=== PATIENT | female | born 1940 ===

== ENCOUNTER 2016-05-11 12:31 | Inpatient (IN) | payer MEDICARE, OTHER ==
[2016-05-11 12:33] VITALS: PULSE 68
[2016-05-11 12:45] VITALS: BMI 22.3
[2016-05-11 13:42] LABS: BASO # 0.1 K/uL (0.0-0.2); BASO % 1.2 % (0.0-2.0); EOS # 0.1 K/uL (0.0-0.7); EOS % 2.1 % (0.0-4.0); HEMATOCRIT 33.8 % (34.0-47.0); LYMPH # 1.1 K/uL (1.0-4.3); LYMPH % 15.3 % (20.0-40.0); MEAN CORPUSCULAR HEMOGLOBIN 30.4 pg (27.0-31.0); MEAN PLATELET VOLUME 9.4 fL (7.2-11.7); MONO # 0.7 K/uL (0.0-0.8); MONO % 10.7 % (0.0-10.0); NRBC % 0.1 % (0.0-2.0); RED CELL DISTRIBUTION WIDTH 15.7 % (11.5-14.5); WHITE BLOOD COUNT 6.9 K/uL (4.8-10.8)
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
[2016-05-11 13:51] LABS: ALB/GLOB RATIO 0.9 (1.0-2.1); BILIRUBIN,TOTAL 0.7 mg/dL (0.2-1.3); TOTAL PROTEIN 7.8 g/dL (6.3-8.3)
[2016-05-11 13:52] LABS: CALCIUM 6.8 mg/dl (8.6-10.4)
[2016-05-11 13:59] LABS: INR 1.2
[2016-05-11 14:06] LABS: TROPONIN I 0.039 ng/mL (0.00-0.120)
[2016-05-11 14:07] LABS: POTASSIUM 6.3 mmol/L (3.6-5.2)
--- NOTE | 2016-05-11 14:51 | RAD ---
HISTORY: SOB COMPARISON: Chest x-ray performed 04/05/16 TECHNIQUE: Chest, one view. FINDINGS: LUNGS: Mild pulmonary venous congestion. No focal consolidation. Please note that chest x-ray has limited sensitivity for the detection of pulmonary masses. PLEURA: No significant pleural effusion identified. No definite pneumothorax . CARDIOVASCULAR: Severe cardiomegaly. Single lead left-sided AICD. OSSEOUS STRUCTURES: Osseous demineralization. Chronic deformity of the proximal right humerus. VISUALIZED UPPER ABDOMEN: Unremarkable. OTHER FINDINGS: None. IMPRESSION: Mild pulmonary venous congestion. Cardiomegaly. Single lead left-sided AICD.
--- NOTE | 2016-05-11 16:26 | CP.PCM.CON ---
Past Patient History - Infectious Disease Hx of Infectious Diseases: None - Past Medical History & Family History Past Medical History?: Yes - Past Social History Smoking Status: Never Smoked - CARDIAC Hx Atrial Fibrillation: No Hx Cardia Arrhythmia: Yes Hx Congestive Heart Failure: Yes Hx Hypercholesterolemia: Yes Hx Hypertension: Yes Hx Pacemaker: Yes (LEFT CHEST WALL) - PULMONARY Hx Asthma: Yes Hx Chronic Obstructive Pulmonary Disease (COPD): Yes - NEUROLOGICAL Hx Neurological Disorder: No - HEENT Hx HEENT Problems: Yes (SEE COMMENT) Other/Comment: hard of hearing - RENAL Hx Chronic Kidney Disease: Yes (SEE COMMENT) Hx Kidney Stones: Yes - ENDOCRINE/METABOLIC Hx Endocrine Disorders: Yes Hx Diabetes Mellitus Type 2: Yes - HEMATOLOGICAL/ONCOLOGICAL Hx Anemia: Yes - INTEGUMENTARY Hx Dermatological Problems: No - MUSCULOSKELETAL/RHEUMATOLOGICAL Hx Fractures: Yes - GASTROINTESTINAL Hx Diverticulitis: Yes - GENITOURINARY/GYNECOLOGICAL Hx Genitourinary Disorders: No - PSYCHIATRIC Hx Anxiety: No Hx Depression: No Hx Substance Use: No - SURGICAL HISTORY Hx Surgeries: Yes (SEE COMMENT) Hx Arteriovenous Shunt: Yes (LEFT ARM AV SHUNT) Hx Herniorrhaphy: Yes (umbilical) Other/Comment: pacemaker 2014 - ANESTHESIA Hx Anesthesia: Yes Hx Anesthesia Reactions: No (Denies) Hx Malignant Hyperthermia: No Meds Allergies/Adverse Reactions: Allergies Allergy/AdvReac Type Severity Reaction Status Date / Time oxycodone AdvReac Severe CONFUSION Verified 05/11/16 12:44 ferumoxides AdvReac REDNESS Verified 05/11/16 12:44 iron AdvReac REDNESS Verified 05/11/16 12:44 sodium ferric gluconate AdvReac REDNESS Verified 05/11/16 12:44 complex [From Ferrlecit] sucrose [From Ferrlecit] AdvReac REDNESS Verified 05/11/16 12:44 Physical Exam - Constitutional Appears: Well - Head Exam Head Exam: ATRAUMATIC, NORMAL INSPECTION, NORMOCEPHALIC - Eye Exam Eye Exam: EOMI, Normal appearance, PERRL Pupil Exam: NORMAL ACCOMODATION, PERRL - ENT Exam ENT Exam: Mucous Membranes Moist, Normal Exam - Neck Exam Neck exam: Positive for: Normal Inspection - Respiratory Exam Respiratory Exam: Decreased Breath Sounds - Cardiovascular Exam Cardiovascular Exam: REGULAR RHYTHM, +S1, +S2 - GI/Abdominal Exam GI & Abdominal Exam: Diminished Bowel Sounds, Soft - Rectal Exam Rectal Exam: Deferred Results - Vital Signs Recent Vital Signs: Last Vital Signs Temp 97.6 F 05/11/16 15:08 Pulse 72 05/11/16 15:08 Resp 20 05/11/16 15:08 BP 160/100 H 05/11/16 15:08 Pulse Ox 99 05/11/16 15:08 - Labs Result Diagrams: 05/11/16 13:37 05/11/16 13:37
--- NOTE | 2016-05-11 17:52 | CP.PCM.HP ---
Past Patient History - Infectious Disease Hx of Infectious Diseases: None - Past Medical History & Family History Past Medical History?: Yes - Past Social History Smoking Status: Never Smoked - CARDIAC Hx Atrial Fibrillation: No Hx Cardia Arrhythmia: Yes Hx Congestive Heart Failure: Yes Hx Hypercholesterolemia: Yes Hx Hypertension: Yes Hx Pacemaker: Yes (LEFT CHEST WALL) - PULMONARY Hx Asthma: Yes Hx Chronic Obstructive Pulmonary Disease (COPD): Yes - NEUROLOGICAL Hx Neurological Disorder: No - HEENT Hx HEENT Problems: Yes (SEE COMMENT) Other/Comment: hard of hearing - RENAL Hx Chronic Kidney Disease: Yes (SEE COMMENT) Hx Kidney Stones: Yes - ENDOCRINE/METABOLIC Hx Endocrine Disorders: Yes Hx Diabetes Mellitus Type 2: Yes - HEMATOLOGICAL/ONCOLOGICAL Hx Anemia: Yes - INTEGUMENTARY Hx Dermatological Problems: No - MUSCULOSKELETAL/RHEUMATOLOGICAL Hx Fractures: Yes - GASTROINTESTINAL Hx Diverticulitis: Yes - GENITOURINARY/GYNECOLOGICAL Hx Genitourinary Disorders: No - PSYCHIATRIC Hx Anxiety: No Hx Depression: No Hx Substance Use: No - SURGICAL HISTORY Hx Surgeries: Yes (SEE COMMENT) Hx Arteriovenous Shunt: Yes (LEFT ARM AV SHUNT) Hx Herniorrhaphy: Yes (umbilical) Other/Comment: pacemaker 2014 - ANESTHESIA Hx Anesthesia: Yes Hx Anesthesia Reactions: No (Denies) Hx Malignant Hyperthermia: No Meds Allergies/Adverse Reactions: Allergies Allergy/AdvReac Type Severity Reaction Status Date / Time oxycodone AdvReac Severe CONFUSION Verified 05/11/16 12:44 ferumoxides AdvReac REDNESS Verified 05/11/16 12:44 iron AdvReac REDNESS Verified 05/11/16 12:44 sodium ferric gluconate AdvReac REDNESS Verified 05/11/16 12:44 complex [From Ferrlecit] sucrose [From Ferrlecit] AdvReac REDNESS Verified 05/11/16 12:44 Results - Vital Signs Recent Vital Signs: Last Vital Signs Temp 98 F 05/11/16 15:55 Pulse 73 05/11/16 15:45 Resp 18 05/11/16 15:55 BP 102/52 L 05/11/16 17:15 Pulse Ox 98 05/11/16 17:10 - Labs Result Diagrams: 05/11/16 13:37 05/11/16 13:37
[2016-05-11 23:48] VITALS: RESP 20
[2016-05-12 04:31] VITALS: O2SAT 95
[2016-05-12] MEDS: (Novolog) Insulin Aspart, Recombinant 100 u/ml 10 ml vial SC SCH ×2 (07:30→16:30)
[2016-05-12] MEDS ORDERED: Pantoprazole 40 mg EC Tab PO SCH (10:00)
[2016-05-12] MEDS ORDERED: GlipiZIDE 5 mg SR Tab PO SCH (10:00)
--- NOTE | 2016-05-12 13:42 | US ---
Date of Procedure: 05/12/16 PROCEDURE: Ultrasound-guided paracentesis, CPT 39205 Medications: 1% Lidocaine HISTORY: Ascites, abdominal pain, cirrhosis TECHNIQUE: Following informed consent , the patient was placed supine on the stretcher and the site was marked. A limited abdominal ultrasound was performed that showed a large amount of intra-abdominal fluid. Procedural time out was called and the Pt's abdomen was marked and prepped and draped in the usual sterile fashion. Ultrasound-guided large volume paracentesis performed. A total of 4 liters of straw colored fluid was removed without complication. IMPRESSION: Ultrasound-guided large volume paracentesis.
--- NOTE | 2016-05-12 15:29 | CP.PCM.PN ---
Subjective - Date & Time of Evaluation Date of Evaluation: 05/12/16 Time of Evaluation: 15:24 - Subjective Subjective: 75 Y/O FEMALE SEEN AND EXAMINED TODAY DURING ROUNDS WITH DR Sanchez HERRERA, PT D/C HOME PER DR Sanchez HERRERA, AAOX3, DENIES ANY PAIN, SOB, CP, RESP EASY AND UNLABORED, NAD, PT IS ON HD ADMITTED FOR RECURRENT ASCITIES, US GUIDED LARGE VOLUME PARACENTESIS PERFORMED TODAY BY IR, A TOTAL OF 4 LITERS OF STRAW COLORED FLUID WAS REMOVED WITHOUT ANY COMPLICATIONS. PT EDUCATED TO CONTINUE HOME MEDICATIONS PER DR HERRERA, CONTINUE HD SCHEDULED ON //SUN, F/U WITH DR Sanchez HERRERA IN THE OFFICE WITHIN ONE WEEK, RETURN TO ED IF ANY WORSENING S/S, AGREE , VERBALIZE UNDERSTANDING. Objective - Vital Signs/Intake and Output Vital Signs (last 24 hours): Temp Pulse Resp BP Pulse Ox 98.6 F 88 20 100/60 95 05/12/16 07:00 05/12/16 07:35 05/12/16 07:00 05/12/16 10:20 05/12/16 07:00 - Medications Medications: Current Medications Furosemide (Lasix) 40 mg PO DAILY [facility] Last Admin: 05/12/16 10:20 Dose: Not Given Glipizide (Glucotrol Xl) 5 mg PO DAILY [facility] Last Admin: 05/12/16 10:18 Dose: 5 mg Heparin Sodium (Porcine) (Heparin) 5,000 units SC Q12 [facility] Last Admin: 05/12/16 11:19 Dose: Not Given Hydralazine HCl (Apresoline) 25 mg PO DAILY [facility] Last Admin: 05/12/16 10:17 Dose: Not Given Insulin Aspart (Novolog) 0 unit SC ACHS [facility] PRN Reason: Protocol Last Admin: 05/12/16 07:30 Dose: Not Given Pantoprazole Sodium (Protonix Ec Tab) 40 mg PO DAILY [facility] Last Admin: 05/12/16 10:19 Dose: 40 mg - Labs Labs: PT 13.9 SECONDS (9.7-12.2) H 05/11/16 13:37 INR 1.2 05/11/16 13:37 APTT 34 SECONDS (21-34) 05/11/16 13:37
[2016-05-12 16:04] VITALS: PULSE 71; TEMP 98.1
[2016-05-12 16:55] VITALS: BP 93/57
--- NOTE | 2016-05-12 17:27 | PCM.HF ---
Heart Failure Core Measure - Heart Failure Ejection Fraction: Less Than 40 % (LVEF 20%) JESSICA Inhibitor Prescribed: No Contraindication/Reason for not providing: ESRD Beta-Irma Prescribed: None Contraindication/Reason for not providing: COPD Angiotensin II Receptor Irma Prescribed: No Contraindication/Reason for not providing: ESRD AnticoagulationTherapy for Atrial Fibrillation/Atrialflutter: No Contraindication/Reason for not providing: NO AFIB Aldosterone Antagonist Prescribed: No Contraindication/Reason for not providing: HYPERKALEMIA Hydralazine Nitrate Prescribed: Yes Implantable Cardioverter Defibrillator Therapy: Yes Cardiac Resynchronization Therapy Prescribed: No Contraindication/Reason for not providing: PACEMAKER - Follow up Will be discharged to: Home Follow Up Date (must be within 7 days from discharge): 05/15/16 Follow Up Time: 09:00
--- NOTE | 2016-05-14 09:18 | CARD ---
APPROVED REPORT EKG Measurement Heart [id number] <Conclusion> Normal sinus rhythm T wave abnormality, consider lateral ischemia Prolonged QT LAD Abnormal ECG
== END 2016-05-12 18:09 | disposition home or self-care (01) | DRG 640 ==
LOC: C.ER 12:31 → C.9E 14:14 → C.6T 17:24
PROVIDERS: ADMIT Internal Medicine Nephrology; ATTEND Internal Medicine Nephrology
PROC: 5A1D00Z (ICD-10-PCS; principal; 2016-05-11)
PROC: 0W9G3ZZ Drainage of Peritoneal Cavity, Percutaneous Approach (ICD-10-PCS; 2016-05-12)
DX: E87.5 Hyperkalemia (principal); N18.6 End stage renal disease; I13.2 Hypertensive heart and chronic kidney disease with heart failure and with stage 5 chronic kidney disease, or end stage renal disease; R18.8 Other ascites; E11.22 Type 2 diabetes mellitus with diabetic chronic kidney disease; J44.9 Chronic obstructive pulmonary disease, unspecified; I50.9 Heart failure, unspecified; Z99.2 Dependence on renal dialysis; Z79.4 Long term (current) use of insulin; Z68.21 Body mass index [BMI] 21.0-21.9, adult; J45.909 Unspecified asthma, uncomplicated

== ENCOUNTER 2016-05-19 20:38 | Emergency (ER) | payer MEDICARE, OTHER ==
[2016-05-19 20:38] VITALS: PULSE 68; BMI 22.3
[2016-05-19 20:50] VITALS: PULSE 84; RESP 20; TEMP 97.6
--- NOTE | 2016-05-19 21:34 | C.PDOC ---
History Of Present Illness 75 year old pt presents to the ER with a brief syncopal episode prior to arrival. Pt notes SOB and left sided chest discomfort, but denies headache, fever, nausea, vomiting, diarrhea, head injury, or any other complaints. Pt has a history of End stage renal disease and has dialysis days every Sunday, , and Sunday. Pt reports fluid removal from abdomen last week. Time Seen by Provider: 05/19/16 21:33 Chief Complaint (Nursing): Chest Pain History Per: Patient History/Exam Limitations: no limitations Onset/Duration Of Symptoms: Hrs Current Symptoms Are (Timing): Still Present Severity: Mild Associated Symptoms: Syncope, Other (SOB, Left sided chest discomfort). denies : Nausea Past Medical History Reviewed: Historical Data, Nursing Documentation, Vital Signs Vital Signs: Last Vital Signs Temp 97.6 F 05/19/16 20:45 Pulse 84 05/19/16 20:45 Resp 20 05/19/16 20:45 BP 115/59 L 05/19/16 20:45 Pulse Ox 98 05/19/16 23:16 - Medical History PMH: Anemia, Asthma, CAD, Cardia Arrhythmia, CHF, COPD, Diabetes, Diverticulitis , Fractures, Hiatal Hernia, HTN, Hypercholesterolemia, Kidney Stones, End Stage Renal Disease, Chronic Kidney Disease (SEE COMMENT) Denies: Anxiety, Atrial Fibrillation, Depression Surgical History: Pacemaker (LEFT CHEST WALL) - [facility] Procedures BYPASS LEFT BRACHIAL ARTERY TO UPPER ARM VEIN, OPEN APPROACH (12/14/14) C.A.T. SCAN OF THORAX (08/16/13) DIALYSIS ARTERIOVENOSTOM (09/14/14) DRAINAGE OF PERITONEAL CAVITY WITH DRAIN DEV, PERC APPROACH (02/24/16) DRAINAGE OF PERITONEAL CAVITY, PERCUTANEOUS APPROACH (05/11/16) DX ULTRASOUND-ABDOMEN (10/25/14) HEMODIALYSIS (11/16/14) MEASUREMENT OF CARDIAC DEFIBRILLATOR, EXTERNAL APPROACH (12/14/14) PACKED CELL TRANSFUSION (08/16/13) PERCUTANEOUS ABDOMINAL DRAINAGE (11/16/14) PERFORMANCE OF URINARY FILTRATION, MULTIPLE (08/31/15) PERFORMANCE OF URINARY FILTRATION, SINGLE (05/11/16) REPOSITION LEFT BASILIC VEIN, OPEN APPROACH (05/30/15) SUPPLEMENT ABDOMINAL WALL WITH SYNTH SUB, OPEN APPROACH (03/17/15) THORACENTESIS (08/16/13) ULTRASONOGRAPHY OF ABDOMEN (12/04/15) VENOUS CATHETERIZATION FOR RENAL DIALYSIS (03/01/14) Family History: States: Unknown Family Hx, Diabetes - Social History Hx Tobacco Use: No Hx Alcohol Use: No Hx Substance Use: No - Immunization History Hx Tetanus Toxoid Vaccination: No Hx Influenza Vaccination: No (pt declines as per son) Hx Pneumococcal Vaccination: No Review Of Systems Except As Marked, All Systems Reviewed And Found Negative. Constitutional: Positive for: Other (Head injury). Negative for: Fever Cardiovascular: Positive for: Chest Pain (Left sided chest discomfort) Gastrointestinal: Negative for: Nausea, Vomiting, Diarrhea Neurological: Negative for: Headache Physical Exam - Physical Exam Appears: Non-toxic, No Acute Distress Skin: Warm, Dry Head: Atraumatic, Normacephalic Chest: Other (Pacemaker in the Left upper chest) Cardiovascular: Murmur (Holosystolic Murmur) Respiratory: Normal Breath Sounds, No Rales, No Rhonchi, No Wheezing Extremity: No Pedal Edema (Lower extremity) Neurological/Psych: Other (Lethargic, confused) ED Course And Treatment - Laboratory Results Result Diagrams: 05/19/16 21:42 05/19/16 21:42 Lab Interpretation: Normal (trop neg. Ammonia 33 nl) ECG: Interpreted By Me ECG Rhythm: Sinus Rhythm ECG Interpretation: Normal Rate From EC O2 Sat by Pulse Oximetry: 98 (Room air) Pulse Ox Interpretation: Normal - Radiology CXR: Interpreted by Me CXR Interpretation: Yes: No Acute Disease, Heart Size (cardiomegaly, + mild CHF) - CT Scan/US CT Head w/o PO Other Rad Studies (CT/US): Interpreted By Me, Read By Radiologist CT/US Interpretation: EXAM: CT Head Without Intravenous Contrast. CLINICAL HISTORY: 75 years old, female; Signs and symptoms; Syncope and collapse; Additional info: Brief syncope, ? change of ms. TECHNIQUE: Axial computed tomography images of the head/brain without intravenous contrast. This CT exam. was performed using one or more of the following dose reduction techniques: automated exposure. control, adjustment of the mA and/or kV according to patient size, and/or use of iterative. reconstruction technique. EXAM DATE/ TIME: 05/19/2016 10:20 PM. COMPARISON: There are no prior studies for comparison. FINDINGS: Brain: There is prominence of sulci gyri and ventricles. There is no midline shift. There is decreased. attenuation in periventricular white matter. There are basal ganglia calcifications. There are no focal. masses. There are no focal hemorrhages. Ricardo-white differentiation is visualized. Ventricles: See above. Bones: Cranial vault is intact. Soft tissues: unremarkable. Ears and mastoids: Middle ears and mastoids are unremarkable. Orbits: Orbital contents are unremarkable. 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 related to L upper chest pacer normal w/u though recommended for Obs to r/o ACS, pt prefers d/c and opt f/u. HD in AM Disposition Doctor Will See Patient In The: Office Counseled Patient/Family Regarding: Studies Performed, Diagnosis - Disposition Disposition: HOME/ ROUTINE Disposition Time: 23:19 Condition: GOOD - Clinical Impression Clinical Impression: Lethargy - Scribe Statement The provider has reviewed the documentation as recorded by the Scribe Humphrey dennis All medical record entries made by the Scribe were at my direction and personally dictated by me. I have reviewed the chart and agree that the record accurately reflects my personal performance of the history, physical exam, medical decision making, and the department course for this patient. I have also personally directed, reviewed, and agree with the discharge instructions and disposition.
[2016-05-19 21:49] LABS: BASO # 0.1 K/uL (0.0-0.2); BASO % 1.1 % (0.0-2.0); EOS # 0.2 K/uL (0.0-0.7); EOS % 3.3 % (0.0-4.0); HEMATOCRIT 34.8 % (34.0-47.0); LYMPH % 17.8 % (20.0-40.0); MEAN CELL VOLUME 93.4 fL (81.0-99.0); MEAN CORPUSCULAR HEMOGLOBIN 29.9 pg (27.0-31.0); MEAN PLATELET VOLUME 9.5 fL (7.2-11.7); MONO # 0.7 K/uL (0.0-0.8); MONO % 12.1 % (0.0-10.0); NRBC % 0.1 % (0.0-2.0); RED CELL DISTRIBUTION WIDTH 15.1 % (11.5-14.5); WHITE BLOOD COUNT 5.7 K/uL (4.8-10.8)
[2016-05-19 21:55] LABS: POTASSIUM 4.9 mmol/L (3.6-5.2)
[2016-05-19 21:57] LABS: ALB/GLOB RATIO 0.9 (1.0-2.1); BILIRUBIN,TOTAL 0.5 mg/dL (0.2-1.3); TOTAL PROTEIN 7.8 g/dL (6.3-8.3)
[2016-05-19 21:58] LABS: CALCIUM 7.3 mg/dl (8.6-10.4)
[2016-05-19 22:09] LABS: TROPONIN I 0.038 ng/mL (0.00-0.120)
--- NOTE | 2016-05-19 23:09 | CT ---
EXAM: CT Head Without Intravenous Contrast. CLINICAL HISTORY: 75 years old, female; Signs and symptoms; Syncope and collapse; Additional info: Brief syncope, ? change of ms TECHNIQUE: Axial computed tomography images of the head/brain without intravenous contrast. This CT exam was performed using one or more of the following dose reduction techniques: automated exposure control, adjustment of the mA and/or kV according to patient size, and/or use of iterative reconstruction technique. EXAM DATE/TIME: 05/19/2016 10:20 PM COMPARISON: There are no prior studies for comparison. FINDINGS: Brain: There is prominence of sulci gyri and ventricles. There is no midline shift. There is decreased attenuation in periventricular white matter. There are basal ganglia calcifications. There are no focal masses. There are no focal hemorrhages. Ricardo-white differentiation is visualized. Ventricles: See above. Bones: Cranial vault is intact. Soft tissues: unremarkable Ears and mastoids: Middle ears and mastoids are unremarkable. Orbits: Orbital contents are unremarkable. IMPRESSION: Atrophy and small vessel disease no bleed
[2016-05-19 23:32] VITALS: BP 121/64; O2SAT 99
--- NOTE | 2016-05-20 14:25 | RAD ---
PROCEDURE: CHEST RADIOGRAPH, 1 VIEW HISTORY: SOB COMPARISON: 05/11/2016 FINDINGS: LUNGS: New interstitial prominence compared to recent prior examinations suggestive of interstitial pulmonary edema. No pulmonary infiltrate. PLEURA: No pneumothorax or pleural fluid seen. CARDIOVASCULAR: Cardiomegaly. AICD. Congestive change. OSSEOUS STRUCTURES: Deformity secondary to old right humeral head fracture. Left shoulder calcific tendinitis. VISUALIZED UPPER ABDOMEN: Normal. OTHER FINDINGS: None. IMPRESSION: Findings suggestive of interstitial pulmonary edema or fluid overload. No acute infiltrate.
== END 2016-05-19 23:31 | disposition home or self-care (01) ==
LOC: C.ER 20:38
DX: R53.83 Other fatigue (principal)

== ENCOUNTER 2016-06-01 13:11 | Observation (INO) | payer MEDICARE, OTHER ==
[2016-06-01 13:13] VITALS: PULSE 68
[2016-06-01 13:27] VITALS: BMI 23.2
--- NOTE | 2016-06-01 15:19 | C.PDOC ---
History Of Present Illness 75 y/o female with esrd. due for hd today. c/o increased swelling to her abdomen , with no pain. pt sts she gets 4 quarts of fluid drained every few weeks to month. Time Seen by Provider: 06/01/16 13:49 Chief Complaint (Nursing): GI Problem History Per: Patient History/Exam Limitations: no limitations Current Symptoms Are (Timing): Still Present Location Of Pain/Discomfort: Other (Swelling) Associated Symptoms: denies: Fever, Chills, Nausea, Vomiting Past Medical History Reviewed: Historical Data, Nursing Documentation, Vital Signs Vital Signs: Last Vital Signs Temp 97.2 F L 06/01/16 16:52 Pulse 75 06/01/16 16:52 Resp 20 06/01/16 16:52 BP 115/69 06/01/16 16:52 Pulse Ox 98 06/01/16 17:00 - Medical History PMH: Anemia, Asthma, CAD, Cardia Arrhythmia, CHF, COPD, Diabetes, Diverticulitis , Fractures, Hiatal Hernia, HTN, Hypercholesterolemia, Kidney Stones, End Stage Renal Disease, Chronic Kidney Disease (SEE COMMENT) Surgical History: Pacemaker (LEFT CHEST WALL) - [facility] Procedures BYPASS LEFT BRACHIAL ARTERY TO UPPER ARM VEIN, OPEN APPROACH (12/14/14) C.A.T. SCAN OF THORAX (08/16/13) DIALYSIS ARTERIOVENOSTOM (09/14/14) DRAINAGE OF PERITONEAL CAVITY WITH DRAIN DEV, PERC APPROACH (02/24/16) DRAINAGE OF PERITONEAL CAVITY, PERCUTANEOUS APPROACH (05/11/16) DX ULTRASOUND-ABDOMEN (10/25/14) HEMODIALYSIS (11/16/14) MEASUREMENT OF CARDIAC DEFIBRILLATOR, EXTERNAL APPROACH (12/14/14) PACKED CELL TRANSFUSION (08/16/13) PERCUTANEOUS ABDOMINAL DRAINAGE (11/16/14) PERFORMANCE OF URINARY FILTRATION, MULTIPLE (08/31/15) PERFORMANCE OF URINARY FILTRATION, SINGLE (05/11/16) REPOSITION LEFT BASILIC VEIN, OPEN APPROACH (05/30/15) SUPPLEMENT ABDOMINAL WALL WITH SYNTH SUB, OPEN APPROACH (03/17/15) THORACENTESIS (08/16/13) ULTRASONOGRAPHY OF ABDOMEN (12/04/15) VENOUS CATHETERIZATION FOR RENAL DIALYSIS (03/01/14) Family History: States: Unknown Family Hx, Diabetes - Social History Hx Tobacco Use: No Hx Alcohol Use: No Hx Substance Use: No - Immunization History Hx Tetanus Toxoid Vaccination: No Hx Influenza Vaccination: No (pt declines as per son) Hx Pneumococcal Vaccination: No Review Of Systems Constitutional: Negative for: Fever, Chills Respiratory: Negative for: Shortness of Breath Gastrointestinal: Positive for: Other (Abdominal swelling). Negative for: Nausea, Vomiting, Abdominal Pain, Diarrhea Physical Exam - Physical Exam Appears: Non-toxic, Other (Appears older than looks) Skin: Normal Color, Warm, Dry Head: Atraumatic, Normacephalic Oral Mucosa: Moist Cardiovascular: Murmur (blowing systolic, best heard at left sternal border between ribs 2-3) Respiratory: Other (Bilateral basilar crackles) Gastrointestinal/Abdominal: Soft, No Tenderness, Distention (Grossly) Neurological/Psych: Oriented x3, Normal Speech, Normal Cognition ED Course And Treatment - Laboratory Results Result Diagrams: 06/01/16 16:20 06/01/16 16:20 O2 Sat by Pulse Oximetry: 98 (room air) Pulse Ox Interpretation: Normal Progress Note: Blood work ordered. Medical Decision Making Medical Decision Making: discussed with Dr Barry, will send patient to HD, then admit to his service. Disposition Discussed With : Quin Barry - Disposition Disposition Time: 16:59 Condition: STABLE - Clinical Impression Clinical Impression: ESRD needing dialysis, Ascites - Scribe Statement The provider has reviewed the documentation as recorded by the Scribmarcial Lyons All medical record entries made by the Scribe were at my direction and personally dictated by me. I have reviewed the chart and agree that the record accurately reflects my personal performance of the history, physical exam, medical decision making, and the department course for this patient. I have also personally directed, reviewed, and agree with the discharge instructions and disposition. Decision To Admit - Pt Status Changed To: Hospital Disposition Of: Observation - . Bed Request Type: Regular Patient Diagnosis: ESRD needing dialysis, Ascites
[2016-06-01 16:23] LABS: BASO # 0.1 K/uL (0.0-0.2); EOS # 0.2 K/uL (0.0-0.7); EOS % 2.7 % (0.0-4.0); HEMATOCRIT 34.2 % (34.0-47.0); LYMPH % 17.9 % (20.0-40.0); MEAN CELL VOLUME 93.8 fL (81.0-99.0); MEAN CORPUSCULAR HEMOGLOBIN 30.3 pg (27.0-31.0); MEAN CORPUSCULAR HGB CONC 32.3 g/dL (33.0-37.0); MEAN PLATELET VOLUME 9.4 fL (7.2-11.7); MONO # 0.8 K/uL (0.0-0.8); MONO % 13.5 % (0.0-10.0); NRBC % 0.1 % (0.0-2.0); WHITE BLOOD COUNT 5.8 K/uL (4.8-10.8)
[2016-06-01 16:32] LABS: POTASSIUM 5.4 mmol/L (3.6-5.2)
[2016-06-01 16:34] LABS: BILIRUBIN,TOTAL 0.7 mg/dL (0.2-1.3); TOTAL PROTEIN 7.7 g/dL (6.3-8.3)
[2016-06-01 16:35] LABS: CALCIUM 7.1 mg/dl (8.6-10.4)
--- NOTE | 2016-06-01 18:05 | CP.PCM.HP ---
History of Present Illness - History of Present Illness History of Present Illness: 75 years old female past medical history of coronary artery disease, CHF, diabetes, hypertension, hyperlipidemia, stones, ESRD on hemodialysis presented with complaint of distended abdomen associated with pain. Patient patient needs paracentesis every few weeks. Emergency department blood workup was done and underwent hemodialysis. Admitted for further management. Present on Admission - Present on Admission Any Indicators Present on Admission: No Past Patient History - Infectious Disease Hx of Infectious Diseases: None - Past Medical History & Family History Past Medical History?: Yes - Past Social History Smoking Status: Never Smoked - CARDIAC Hx Cardia Arrhythmia: Yes Hx Congestive Heart Failure: Yes Hx Hypercholesterolemia: Yes Hx Hypertension: Yes Hx Pacemaker: Yes (LEFT CHEST WALL) - PULMONARY Hx Asthma: Yes Hx Chronic Obstructive Pulmonary Disease (COPD): Yes - NEUROLOGICAL Hx Neurological Disorder: No - HEENT Hx HEENT Problems: Yes (SEE COMMENT) - RENAL Hx Chronic Kidney Disease: Yes (SEE COMMENT) Hx Kidney Stones: Yes - ENDOCRINE/METABOLIC Hx Endocrine Disorders: Yes Hx Diabetes Mellitus Type 2: Yes - HEMATOLOGICAL/ONCOLOGICAL Hx Anemia: Yes - INTEGUMENTARY Hx Dermatological Problems: No Other/Comment: herpes zoster - MUSCULOSKELETAL/RHEUMATOLOGICAL Hx Fractures: Yes - GASTROINTESTINAL Hx Diverticulitis: Yes - GENITOURINARY/GYNECOLOGICAL Hx Genitourinary Disorders: No - PSYCHIATRIC Hx Substance Use: No - SURGICAL HISTORY Hx Surgeries: Yes (SEE COMMENT) Hx Arteriovenous Shunt: Yes (LEFT ARM AV SHUNT) Other/Comment: pacemaker 2014 - ANESTHESIA Hx Anesthesia: Yes Hx Anesthesia Reactions: No (Denies) Hx Malignant Hyperthermia: No Meds Allergies/Adverse Reactions: Allergies Allergy/AdvReac Type Severity Reaction Status Date / Time oxycodone AdvReac Severe CONFUSION Verified 08/16/16 11:41 ferumoxides AdvReac REDNESS Verified 08/16/16 11:41 iron AdvReac REDNESS Verified 08/16/16 11:41 sodium ferric gluconate AdvReac REDNESS Verified 08/16/16 11:41 complex [From Ferrlecit] sucrose [From Ferrlecit] AdvReac REDNESS Verified 08/16/16 11:41 Results - Vital Signs Recent Vital Signs: Last Vital Signs Temp 97.7 F 06/01/16 17:15 Pulse 72 06/01/16 17:40 Resp 18 06/01/16 17:40 BP 110/63 06/01/16 17:40 Pulse Ox 99 06/01/16 17:15 - Labs Result Diagrams: 06/01/16 16:20 06/01/16 16:20 Assessment & Plan (1) Ascites Status: Acute Priority: Medium (2) Abdominal pain Status: Acute (3) Abdominal wall pain Status: Acute (4) Acute on chronic systolic congestive heart failure Status: Acute Priority: Medium (5) Anasarca Status: Acute (6) Ascites, malignant Status: Acute (7) Bronchitis, acute Status: Acute (8) CAD (coronary artery disease) Status: Acute (9) CHF (congestive heart failure) Status: Acute Priority: Low (10) COPD (chronic obstructive pulmonary disease) Status: Acute (11) Chest pain Status: Acute (12) Cirrhosis Status: Acute (13) Congestive heart failure with cardiomyopathy Status: Acute Priority: Medium (14) Contusion of foot, left Status: Acute (15) Deep vein thrombosis (DVT) Status: Acute (16) Dialysis patient Status: Acute (17) Diarrhea Status: Acute (18) Diarrhea Status: Acute (19) Dyspnea Status: Acute (20) Dyspnea Status: Acute (21) ESRD (end stage renal disease) Status: Acute (22) ESRD needing dialysis Status: Acute (23) Fluid overload Status: Acute (24) Foot pain Status: Acute (25) HLD (hyperlipidemia) Status: Acute (26) Hepatorenal syndrome Status: Acute (27) Herpes zoster Status: Acute (28) Humerus fracture Status: Acute (29) Hyperkalemia Status: Acute (30) Hypoglycemia Status: Acute Priority: Low (31) Incarcerated umbilical hernia Status: Acute (32) Increased ammonia level Status: Acute (33) Ischemic cardiomyopathy Status: Acute (34) Knee contusion Status: Acute (35) Lethargy Status: Acute (36) Liver disease Status: Acute (37) Nausea Status: Acute (38) Other ascites Status: Acute (39) Patient left without being seen Status: Acute (40) Poorly controlled ascites Status: Acute (41) Pre-operative cardiovascular examination, LVEF < 35% Status: Acute (42) Prophylactic measure Status: Acute (43) Pulmonary HTN Status: Acute (44) Renal failure Status: Acute (45) Renal insufficiency Status: Acute (46) Shortness of breath Status: Acute (47) Small bowel obstruction Status: Acute (48) Upper respiratory infection Status: Acute (49) Ventral hernia Status: Acute (50) Vomiting Status: Acute (51) Wrist contusion Status: Acute (52) Chronic congestive heart failure Status: Chronic (53) Chronic renal disease Status: Chronic Priority: Medium (54) Cirrhosis of liver with ascites Status: Chronic Priority: High (55) Diabetes mellitus Status: Chronic (56) ESRD (end stage renal disease) on dialysis Status: Chronic (57) End stage renal disease Status: Chronic Priority: Medium (58) Hypertension Status: Chronic (59) Liver failure Status: Chronic Priority: Medium (60) Pacemaker Status: Chronic (61) Pelvic fracture Status: Chronic (62) Type II diabetes mellitus Status: Chronic Priority: Medium (63) Uncontrolled diabetes mellitus Status: Chronic - Assessment and Plan (Free Text) Plan: Labs reviewed Hemodialysis Renal diet Accu-Chek Insulin Lasix
[2016-06-01] MEDS: (Novolog) Insulin Aspart, Recombinant 100 u/ml 10 ml vial SC SCH (21:53)
[2016-06-01 22:21] VITALS: RESP 20
[2016-06-02] MEDS: (Novolog) Insulin Aspart, Recombinant 100 u/ml 10 ml vial SC SCH ×2 (07:42→11:45)
--- NOTE | 2016-06-02 09:06 | CP.PCM.PN ---
Objective - Vital Signs/Intake and Output Vital Signs (last 24 hours): Temp Pulse Resp BP Pulse Ox 98.1 F 73 20 108/62 97 06/02/16 00:00 06/02/16 01:59 06/02/16 00:00 06/02/16 00:00 06/02/16 00:00 Intake and Output: 06/02/16 06/02/16 06:59 18:59 Intake Total 200 0 Balance 200 0 - Medications Medications: Current Medications Amlodipine Besylate (Norvasc) 10 mg PO DAILY [facility] Furosemide (Lasix) 40 mg PO DAILY [facility] Insulin Aspart (Novolog) 0 unit SC ACHS [facility] PRN Reason: Protocol Last Admin: 06/02/16 07:42 Dose: Not Given Pantoprazole Sodium (Protonix Ec Tab) 40 mg PO DAILY [facility]
[2016-06-02] MEDS ORDERED: Pantoprazole 40 mg EC Tab PO SCH (10:00)
--- NOTE | 2016-06-02 10:31 | CP.PCM.PN ---
Subjective - Date & Time of Evaluation Date of Evaluation: 06/02/16 Time of Evaluation: 10:00 - Subjective Subjective: clinically same for abdominal paracentesis Objective - Vital Signs/Intake and Output Vital Signs (last 24 hours): Temp Pulse Resp BP Pulse Ox 98.0 F 77 20 101/56 L 94 L 06/02/16 08:00 06/02/16 08:00 06/02/16 08:00 06/02/16 08:00 06/02/16 08:00 Intake and Output: 06/02/16 06/02/16 06:59 18:59 Intake Total 200 0 Balance 200 0 - Medications Medications: Current Medications Amlodipine Besylate (Norvasc) 10 mg PO DAILY [facility] Furosemide (Lasix) 40 mg PO DAILY [facility] Insulin Aspart (Novolog) 0 unit SC ACHS [facility] PRN Reason: Protocol Last Admin: 06/02/16 07:42 Dose: Not Given Pantoprazole Sodium (Protonix Ec Tab) 40 mg PO DAILY [facility] - Constitutional Appears: Well - Head Exam Head Exam: ATRAUMATIC, NORMAL INSPECTION, NORMOCEPHALIC - Eye Exam Eye Exam: EOMI, Normal appearance, PERRL Pupil Exam: NORMAL ACCOMODATION, PERRL - ENT Exam ENT Exam: Mucous Membranes Moist, Normal Exam - Neck Exam Neck Exam: Full ROM, Normal Inspection. absent: Lymphadenopathy - Respiratory Exam Respiratory Exam: Decreased Breath Sounds - Cardiovascular Exam Cardiovascular Exam: REGULAR RHYTHM, +S1, +S2 - GI/Abdominal Exam GI & Abdominal Exam: Soft, Diminished Bowel Sounds - Rectal Exam Rectal Exam: Deferred - Neurological Exam Neurological Exam: Alert Assessment and Plan (1) Abdominal pain Status: Acute (2) Abdominal wall pain Status: Acute (3) Acute on chronic systolic congestive heart failure Status: Acute (4) Anasarca Status: Acute (5) Ascites Status: Acute (6) Ascites, malignant Status: Acute (7) Bronchitis, acute Status: Acute (8) CAD (coronary artery disease) Status: Acute (9) CHF (congestive heart failure) Status: Acute (10) COPD (chronic obstructive pulmonary disease) Status: Acute (11) Chest pain Status: Acute (12) Cirrhosis Status: Acute (13) Congestive heart failure with cardiomyopathy Status: Acute (14) Contusion of foot, left Status: Acute (15) Deep vein thrombosis (DVT) Status: Acute (16) Dialysis patient Status: Acute (17) Diarrhea Status: Acute (18) Diarrhea Status: Acute (19) Dyspnea Status: Acute (20) Dyspnea Status: Acute (21) ESRD needing dialysis Status: Acute (22) Fluid overload Status: Acute (23) Foot pain Status: Acute (24) HLD (hyperlipidemia) Status: Acute (25) Hepatorenal syndrome Status: Acute (26) Herpes zoster Status: Acute (27) Humerus fracture Status: Acute (28) Hyperkalemia Status: Acute (29) Hypoglycemia Status: Acute (30) Incarcerated umbilical hernia Status: Acute (31) Increased ammonia level Status: Acute (32) Ischemic cardiomyopathy Status: Acute (33) Knee contusion Status: Acute (34) Lethargy Status: Acute (35) Liver disease Status: Acute (36) Nausea Status: Acute (37) Other ascites Status: Acute (38) Patient left without being seen Status: Acute (39) Poorly controlled ascites Status: Acute (40) Pre-operative cardiovascular examination, LVEF < 35% Status: Acute (41) Prophylactic measure Status: Acute (42) Pulmonary HTN Status: Acute (43) Renal failure Status: Acute (44) Renal insufficiency Status: Acute (45) Shortness of breath Status: Acute (46) Small bowel obstruction Status: Acute (47) Upper respiratory infection Status: Acute (48) Ventral hernia Status: Acute (49) Vomiting Status: Acute (50) Wrist contusion Status: Acute (51) Chronic congestive heart failure Status: Chronic (52) Chronic renal disease Status: Chronic (53) Cirrhosis of liver with ascites Status: Chronic (54) Diabetes mellitus Status: Chronic (55) ESRD (end stage renal disease) on dialysis Status: Chronic (56) End stage renal disease Status: Chronic (57) Hypertension Status: Chronic (58) Liver failure Status: Chronic (59) Pacemaker Status: Chronic (60) Pelvic fracture Status: Chronic (61) Type II diabetes mellitus Status: Chronic (62) Uncontrolled diabetes mellitus Status: Chronic - Assessment and Plan (Free Text) Plan: lasix protonix spironolactone palliative care consult paracentesis as ordered mx as ordered f/u labs monitor for fever
[2016-06-02] MEDS ORDERED: Pantoprazole 20 mg EC Tab PO SCH (11:56)
--- NOTE | 2016-06-02 12:45 | CP.PCM.CON ---
History of Present Illness - History of Present Illness History of Present Illness: Palliative consult for goals of care discussion Requested ellen Wesley DO Patient is a 75 yo Hispanik female, admitted on the day when she was due for HD , with swollen, distended abdomen. Patient reported that each moth she gets pericentesis for abdominal ascites. PMH: ESRD with HD, anemia, CAD, CHF, PPM Soc. hx: , lives at home Fam. hx: Unknown Review of Systems - Constitutional Constitutional: Fatigue - EENT Eyes: absent: As Per HPI, Blind Spots, Blurred Vision, Change in Vision, Decreased Night Vision, Diplopia, Discharge, Dry Eye, Exophthalmos, Floaters, Irritation, Itchy Eyes, Loss of Peripheral Vision, Pain, Photophobia, Requires Corrective Lenses, Sees Flashes, Spots in Vision, Tunnel Vision, Other Visual Disturbances, Loss of Vision, Other Ears: absent: As Per HPI, Decreased Hearing, Ear Discharge, Ear Pain, Tinnitus, Abnormal Hearing, Disequilibrium, Dizziness, Other Nose/Mouth/Throat: absent: As Per HPI, Epistaxis, Nasal Congestion, Nasal Discharge, Nasal Obstruction, Nasal Trauma, Nose Pain, Post Nasal Drip, Sinus Pain, Sinus Pressure, Bleeding Gums, Change in Voice, Dental Pain, Dry Mouth, Dysphagia, Halitosis, Hoarsness, Lip Swelling, Mouth Lesions, Mouth Pain, Odynophagia, Sore Throat, Throat Swelling, Tongue Swelling, Facial Pain, Neck Pain, Neck Mass, Other - Breasts Breasts: absent: As Per HPI, Change in Shape, Mass, Pain, Nipple Discharge, Nipple Inversion, Skin Changes, Swelling, Other - Cardiovascular Cardiovascular: absent: As Per HPI, Acrocyanosis, Chest Pain, Chest Pain at Rest , Chest Pain with Activity, Claudication, Diaphoresis, Dyspnea, Dyspnea on Exertion, Edema, Irregular Heart Rhythm, Pain Radiating to Arm/Neck/Jaw, Leg Edema, Leg Ulcers, Lightheadedness, Orthopnea, Palpitations, Paroxysmal Nocturnal Dyspnea, Pedal Edema, Radiating Pain, Rapid Heart Rate, Slow Heart Rate, Syncope, Other - Respiratory Respiratory: Dyspnea on Exertion - Gastrointestinal Additional comments: Ascites - Genitourinary Additional comments: ESRD on HD - Reproductive: Female Reproductive:Female: Post Menopausal - Menstruation Menstruation: Post Menopausal - Musculoskeletal Musculoskeletal: Muscle Weakness - Integumentary Integumentary: Dry Skin - Neurological Neurological: Weakness - Endocrine Endocrine: absent: As Per HPI, Change in Body Appearance, Change in Libido, Cold Intolorance, Deepening of Voice, Excessive Sweating, Fatigue, Flushing, Heat Intolorance, Increase in Ring/Shoe/Hat Size, Palpitations, Polydipsia, Polyphagia, Polyuria, Other - Hematologic/Lymphatic Hematologic: absent: As Per HPI, Easy Bleeding, Easy Bruising, Lymphadenopathy, Other Past Patient History - Infectious Disease Hx of Infectious Diseases: None - Past Medical History & Family History Past Medical History?: Yes - Past Social History Smoking Status: Never Smoked - CARDIAC Hx Cardiac Disorders: Yes Hx Cardia Arrhythmia: Yes Hx Congestive Heart Failure: Yes Hx Hypercholesterolemia: Yes Hx Hypertension: Yes Hx Pacemaker: Yes (LEFT CHEST WALL) - PULMONARY Hx Respiratory Disorders: Yes Hx Asthma: Yes Hx Chronic Obstructive Pulmonary Disease (COPD): Yes - NEUROLOGICAL Hx Neurological Disorder: No - HEENT Hx HEENT Problems: Yes (SEE COMMENT) - RENAL Hx Chronic Kidney Disease: Yes Hx Dialysis: Yes Date of Last Dialysis Treatment: 06/01/16 - ENDOCRINE/METABOLIC Hx Endocrine Disorders: Yes Hx Diabetes Mellitus Type 2: Yes - HEMATOLOGICAL/ONCOLOGICAL Hx Anemia: Yes - INTEGUMENTARY Hx Dermatological Problems: No Other/Comment: herpes zoster - MUSCULOSKELETAL/RHEUMATOLOGICAL Hx Musculoskeletal Disorders: No Hx Falls: No - GASTROINTESTINAL Hx Gastrointestinal Disorders: Yes Hx Diverticulitis: Yes - GENITOURINARY/GYNECOLOGICAL Hx Genitourinary Disorders: No - PSYCHIATRIC Hx Psychophysiologic Disorder: No Hx Substance Use: No - SURGICAL HISTORY Hx Surgeries: Yes (SEE COMMENT) Hx Arteriovenous Shunt: Yes (LEFT ARM AV SHUNT) Other/Comment: pacemaker 2013 - ANESTHESIA Hx Anesthesia: Yes Hx Anesthesia Reactions: No (Denies) Hx Malignant Hyperthermia: No Has any member of the family had a problem w/ anesthesia?: No Meds Allergies/Adverse Reactions: Allergies Allergy/AdvReac Type Severity Reaction Status Date / Time oxycodone AdvReac Severe CONFUSION Verified 06/01/16 13:27 ferumoxides AdvReac REDNESS Verified 06/01/16 13:27 iron AdvReac REDNESS Verified 06/01/16 13:27 sodium ferric gluconate AdvReac REDNESS Verified 06/01/16 13:27 complex [From Ferrlecit] sucrose [From Ferrlecit] AdvReac REDNESS Verified 06/01/16 13:27 - Medications Medications: Current Medications Amlodipine Besylate (Norvasc) 10 mg PO DAILY [facility] Last Admin: 06/02/16 10:44 Dose: Not Given Furosemide (Lasix) 40 mg PO DAILY [facility] Last Admin: 06/02/16 10:44 Dose: Not Given Insulin Aspart (Novolog) 0 unit SC ACHS [facility] PRN Reason: Protocol Last Admin: 06/02/16 11:45 Dose: Not Given Pantoprazole Sodium (Protonix Ec Tab) 20 mg PO DAILY [facility] Spironolactone (Aldactone) 12.5 mg PO BID [facility] Physical Exam - Constitutional Appears: Chronically Ill - Head Exam Head Exam: ATRAUMATIC - Eye Exam Eye Exam: Normal appearance Pupil Exam: NORMAL ACCOMODATION - ENT Exam ENT Exam: Normal Exam - Neck Exam Neck exam: Positive for: Normal Inspection - Respiratory Exam Respiratory Exam: Decreased Breath Sounds - Cardiovascular Exam Cardiovascular Exam: Tachycardia - GI/Abdominal Exam GI & Abdominal Exam: Diminished Bowel Sounds, Distended - Rectal Exam Rectal Exam: Deferred - Exam Additional comments: Urinates ocationaly, on HD - Extremities Exam Extremities exam: Positive for: normal inspection - Back Exam Back exam: NORMAL INSPECTION - Neurological Exam Neurological exam: Alert, Oriented x3 - Psychiatric Exam Psychiatric exam: Normal Affect, Normal Mood - Skin Skin Exam: Normal Color Results - Vital Signs Recent Vital Signs: Last Vital Signs Temp 98.0 F 06/02/16 08:00 Pulse 77 06/02/16 08:00 Resp 20 06/02/16 08:00 BP 96/58 L 06/02/16 10:44 Pulse Ox 94 L 06/02/16 08:00 - Labs Result Diagrams: 06/01/16 16:20 06/01/16 16:20 Labs: Laboratory Results - last 24 hr 06/01/16 06/02/16 21:19 06:59 POC Glucose (mg/dL) 123 H 115 H Assessment & Plan - Assessment and Plan (Free Text) Assessment: Code status Full Code. PPS 50% I reviewed medical records, all diagnostic studies, examined and interviewed patient in the bed and discussed her status with Doctor Fernando Barry. Patient is alert, oriented X 3 Macedonian and Sami speaking. Patient looks chronically ill. Skin is dry, intact. Breath sounds diminished, patient gets SOB on excertion. Abdomen is largely distended, diminished bowel sounds. Patient reports discomfort and inability to sleep, but denies pain. patient reports fair appetite and regular bowel regimen. BP 101/56, WBC 5.8, Hb 11.1, BUN 42, Health Consultant 8.6 Impression * Abdominal distention due to chronic ascites * Abdominal discomfort due to ascites * Altered sleep pattern due to discomfort * Anuria secondary to ESRD Suggestion * Draining of ascicites * resume HD * discharge home when stable Thank you for consulting Palliative care
--- NOTE | 2016-06-02 13:29 | CP.PCM.PN ---
<Ishan Calderon H - Last Filed: 06/02/16 17:53> Subjective - Date & Time of Evaluation Date of Evaluation: 06/02/16 Time of Evaluation: 10:00 - Subjective Subjective: Dr. Barry service: Patient seen and examined in room. Patient complains of abdominal distention, some diffaculty breathing. She reports having frequent pericenteisis in the past. She denies fever, chills, nausea, vomiting, or diarrhea. Objective - Vital Signs/Intake and Output Vital Signs (last 24 hours): Temp Pulse Resp BP Pulse Ox 98.0 F 77 20 96/58 L 94 L 06/02/16 08:00 06/02/16 08:00 06/02/16 08:00 06/02/16 10:44 06/02/16 08:00 Intake and Output: 06/02/16 06/02/16 06:59 18:59 Intake Total 200 0 Balance 200 0 - Medications Medications: Current Medications Amlodipine Besylate (Norvasc) 10 mg PO DAILY [facility] Last Admin: 06/02/16 10:44 Dose: Not Given Furosemide (Lasix) 40 mg PO DAILY [facility] Last Admin: 06/02/16 10:44 Dose: Not Given Insulin Aspart (Novolog) 0 unit SC ACHS [facility] PRN Reason: Protocol Last Admin: 06/02/16 11:45 Dose: Not Given Pantoprazole Sodium (Protonix Ec Tab) 20 mg PO DAILY [facility] Spironolactone (Aldactone) 12.5 mg PO BID CARITO - Constitutional Appears: Chronically Ill - Head Exam Head Exam: NORMAL INSPECTION - Eye Exam Eye Exam: absent: Scleral icterus Pupil Exam: NORMAL ACCOMODATION - Respiratory Exam Respiratory Exam: Decreased Breath Sounds - Cardiovascular Exam Cardiovascular Exam: REGULAR RHYTHM, RRR. absent: Gallop, Rubs - GI/Abdominal Exam GI & Abdominal Exam: Soft, Normal Bowel Sounds. absent: Tenderness - Extremities Exam Extremities Exam: Normal Inspection. absent: Pedal Edema - Psychiatric Exam Psychiatric exam: Normal Affect - Skin Skin Exam: Normal Color Assessment and Plan - Assessment and Plan (Free Text) Assessment: Patient is to be discharged <Quin Barry S - Last Filed: 06/02/16 18:45> Objective - Vital Signs/Intake and Output Vital Signs (last 24 hours): Temp Pulse Resp BP Pulse Ox 97.7 F 75 20 108/59 L 96 06/02/16 15:15 06/02/16 15:15 06/02/16 15:15 06/02/16 15:15 06/02/16 15:15 Intake and Output: 06/02/16 06/02/16 06:59 18:59 Intake Total 200 200 Balance 200 200 - Medications Medications: Current Medications Amlodipine Besylate (Norvasc) 10 mg PO DAILY [facility] Last Admin: 06/02/16 10:44 Dose: Not Given Furosemide (Lasix) 40 mg PO DAILY [facility] Last Admin: 06/02/16 10:44 Dose: Not Given Insulin Aspart (Novolog) 0 unit SC ACHS [facility] PRN Reason: Protocol Last Admin: 06/02/16 11:45 Dose: Not Given Pantoprazole Sodium (Protonix Ec Tab) 20 mg PO DAILY [facility] Spironolactone (Aldactone) 12.5 mg PO BID [facility] Attending/Attestation - Attestation I have personally seen and examined this patient.: Yes I have fully participated in the care of the patient.: Yes I have reviewed all pertinent clinical information, including history, physical exam and plan: Yes Notes (Text): 06/02/16 18:45 case seen and discuse abdulaziz atkinson
--- NOTE | 2016-06-02 14:50 | PCM.SURG1 ---
Surgeon's Initial Post Op Note - Surgeon's Notes Surgeon: Steven Monroy MD Cit[employer] Fruit Colorer: NONE Type of Anesthesia: Local Pre-Operative Diagnosis: Ascites, abdominal pain Operative Findings: US showed a large ascites with internal echoes. Post-Operative Diagnosis: Ascites, abdominal pain Operation Performed: US guided paracentesis. Specimen/Specimens Removed: 4600 cc of slight serosanguinious fluid. Estimated Blood Loss: EBL {In ML}: 0 Blood Products Given: N/A Drains Used: No Drains Post-Op Condition: Fair Date of Surgery/Procedure: 06/02/16 Time of Surgery/Procedure: 14:45
--- NOTE | 2016-06-02 14:52 | US ---
Date of Procedure: 06/02/2016 PROCEDURE: Ultrasound-guided paracentesis, CPT 94605 Medications: 1% Lidocaine HISTORY: Ascites, abdominal pain, cirrhosis TECHNIQUE: Following informed consent , the patient was placed supine on the stretcher and the site was marked. A limited abdominal ultrasound was performed that showed a large amount of intra-abdominal fluid. Procedural time out was called and the Pt's abdomen was marked and prepped and draped in the usual sterile fashion. Ultrasound-guided large volume paracentesis performed. A total of 4.6 liters of slight serosanguinous fluid was removed without complication. IMPRESSION: Ultrasound-guided large volume paracentesis.
[2016-06-02 17:16] VITALS: BP 108/59; PULSE 75; TEMP 97.7; O2SAT 96
--- NOTE | 2016-06-03 09:43 | PCM.HF ---
Heart Failure Core Measure - Heart Failure Ejection Fraction: Less Than 40 % JESSICA Inhibitor Prescribed: No Contraindication/Reason for not providing: ESRD Beta-Irma Prescribed: None Contraindication/Reason for not providing: COPD Angiotensin II Receptor Irma Prescribed: No Contraindication/Reason for not providing: ESRD AnticoagulationTherapy for Atrial Fibrillation/Atrialflutter: No Contraindication/Reason for not providing: NO HX AFIB Aldosterone Antagonist Prescribed: No Contraindication/Reason for not providing: RISK FOR HYPERKALEMIA /ESRD Hydralazine Nitrate Prescribed: Yes Implantable Cardioverter Defibrillator Therapy: Yes Cardiac Resynchronization Therapy Prescribed: No Contraindication/Reason for not providing: PT HAS AICD - Follow up Will be discharged to: Home Follow Up Date (must be within 7 days from discharge): 06/05/16 Follow Up Time: 09:00
== END 2016-06-02 18:45 | disposition home or self-care (01) ==
LOC: C.ER 13:11 → C.9E 16:57 → C.3T 19:32
PROVIDERS: ADMIT Internal Medicine Nephrology; ATTEND Internal Medicine Nephrology
DX: R18.8 Other ascites (principal); N18.6 End stage renal disease; E11.22 Type 2 diabetes mellitus with diabetic chronic kidney disease; I13.2 Hypertensive heart and chronic kidney disease with heart failure and with stage 5 chronic kidney disease, or end stage renal disease; I50.9 Heart failure, unspecified; I25.10 Atherosclerotic heart disease of native coronary artery without angina pectoris; D64.9 Anemia, unspecified; Z99.2 Dependence on renal dialysis; E78.00 Pure hypercholesterolemia, unspecified; Z95.0 Presence of cardiac pacemaker; J45.909 Unspecified asthma, uncomplicated; J44.9 Chronic obstructive pulmonary disease, unspecified; R34 Anuria and oliguria; K74.60 Unspecified cirrhosis of liver
CPT/HCPCS: 49083; 80053; 82948; 83690; 85025; 99285; G0257; G0378

== ENCOUNTER 2016-06-15 21:19 | Inpatient (IN) | payer MEDICARE, OTHER ==
[2016-06-15 21:20] VITALS: PULSE 68; BMI 23.2
[2016-06-15 22:49] LABS: BASO # 0.1 K/uL (0.0-0.2); BASO % 1.1 % (0.0-2.0); EOS # 0.2 K/uL (0.0-0.7); EOS % 3.5 % (0.0-4.0); HEMATOCRIT 36.7 % (34.0-47.0); LYMPH % 17.1 % (20.0-40.0); MEAN CELL VOLUME 93.3 fL (81.0-99.0); MEAN CORPUSCULAR HEMOGLOBIN 29.8 pg (27.0-31.0); MEAN PLATELET VOLUME 9.7 fL (7.2-11.7); MONO # 0.7 K/uL (0.0-0.8); MONO % 11.3 % (0.0-10.0); RED CELL DISTRIBUTION WIDTH 14.3 % (11.5-14.5); WHITE BLOOD COUNT 5.8 K/uL (4.8-10.8)
[2016-06-15 22:55] LABS: POTASSIUM 5.3 mmol/L (3.6-5.2)
[2016-06-15 22:57] LABS: BILIRUBIN,TOTAL 0.5 mg/dL (0.2-1.3); INR 1.2; TOTAL PROTEIN 7.7 g/dL (6.3-8.3)
[2016-06-15 22:58] LABS: CALCIUM 7.1 mg/dl (8.6-10.4)
[2016-06-15 23:09] LABS: TROPONIN I 0.034 ng/mL (0.00-0.120)
--- NOTE | 2016-06-16 07:28 | RAD ---
PROCEDURE: CHEST RADIOGRAPH, 1 VIEW HISTORY: SOB COMPARISON: Comparison is made to the previous study dated 05/19/2016 FINDINGS: LUNGS: The previously seen pulmonary vascular congestion in the previous exam appears less conspicuous and less severe compared to the previous study. PLEURA: No pneumothorax or pleural fluid seen. CARDIOVASCULAR: The cardiac silhouette is moderately enlarged. The possibility of pericardial effusion should be excluded. Single wire left-sided pacemaker/ AICD is seen in place. OSSEOUS STRUCTURES: Deformity of the right humeral neck is again noted likely due to old fracture. VISUALIZED UPPER ABDOMEN: Normal. OTHER FINDINGS: None. IMPRESSION: Moderately enlarged cardiac silhouette is again noted. Mild pulmonary vascular congestion appears less conspicuous compared to the previous exam. Otherwise no interval change.
[2016-06-16] MEDS ORDERED: Pantoprazole 40 mg EC Tab PO SCH (10:00)
--- NOTE | 2016-06-16 10:11 | CP.PCM.PN ---
Subjective - Date & Time of Evaluation Date of Evaluation: 06/16/16 Time of Evaluation: 09:00 Objective - Vital Signs/Intake and Output Vital Signs (last 24 hours): Temp Pulse Resp BP Pulse Ox 97.4 F L 76 18 104/64 99 06/16/16 08:05 06/16/16 08:05 06/16/16 08:05 06/16/16 08:05 06/16/16 08:05 - Labs Labs: PT 13.4 SECONDS (9.7-12.2) H 06/15/16 22:42 INR 1.2 06/15/16 22:42 APTT 34 SECONDS (21-34) 06/15/16 22:42 Assessment and Plan (1) Fluid overload Status: Acute (2) Ascites Status: Acute (3) Congestive heart failure with cardiomyopathy Status: Acute (4) Prophylactic measure Status: Acute
--- NOTE | 2016-06-16 12:01 | CARD ---
APPROVED REPORT EKG Measurement Heart [id number] <Conclusion> Normal sinus rhythm Nonspecific T wave abnormality Prolonged QT Abnormal ECG
--- NOTE | 2016-06-16 13:36 | CP.PCM.CON ---
History of Present Illness - History of Present Illness History of Present Illness: Called to [facility] pt with acute on chronoc chf. Pt is s/p ICD and complaining of edema sob and dyspnea on exertion. Decrease appetite no cp. Better after receiving treatment in ER Review of Systems - Review of Systems Systems not reviewed;Unavailable: Acuity of Condition - Constitutional Constitutional: absent: Headache - EENT Eyes: absent: Change in Vision Ears: absent: Ear Pain Nose/Mouth/Throat: Nasal Discharge - Cardiovascular Cardiovascular: Dyspnea, Leg Edema - Respiratory Respiratory: Dyspnea - Gastrointestinal Gastrointestinal: absent: Diarrhea - Musculoskeletal Musculoskeletal: absent: Back Pain - Integumentary Integumentary: absent: Bleeding Lesions - Neurological Neurological: absent: Tremor - Psychiatric Psychiatric: absent: Anxiety - Endocrine Endocrine: Fatigue - Hematologic/Lymphatic Hematologic: absent: Easy Bruising Past Patient History - Infectious Disease Hx of Infectious Diseases: None - Past Medical History & Family History Past Medical History?: Yes - Past Social History Smoking Status: Never Smoked - CARDIAC Hx Cardiac Disorders: Yes Hx Cardia Arrhythmia: Yes Hx Congestive Heart Failure: Yes Hx Hypercholesterolemia: Yes Hx Hypertension: Yes Hx Pacemaker: Yes (LEFT CHEST WALL) - PULMONARY Hx Respiratory Disorders: Yes Hx Asthma: Yes Hx Chronic Obstructive Pulmonary Disease (COPD): Yes - NEUROLOGICAL Hx Neurological Disorder: No - HEENT Hx HEENT Problems: Yes (SEE COMMENT) - RENAL Hx Chronic Kidney Disease: Yes Hx Dialysis: Yes Date of Last Dialysis Treatment: 06/01/16 - ENDOCRINE/METABOLIC Hx Endocrine Disorders: Yes Hx Diabetes Mellitus Type 2: Yes - HEMATOLOGICAL/ONCOLOGICAL Hx Anemia: Yes - INTEGUMENTARY Hx Dermatological Problems: No Other/Comment: herpes zoster - MUSCULOSKELETAL/RHEUMATOLOGICAL Hx Musculoskeletal Disorders: No Hx Falls: No - GASTROINTESTINAL Hx Gastrointestinal Disorders: Yes Hx Diverticulitis: Yes - GENITOURINARY/GYNECOLOGICAL Hx Genitourinary Disorders: No - PSYCHIATRIC Hx Psychophysiologic Disorder: No Hx Substance Use: No - SURGICAL HISTORY Hx Surgeries: Yes (SEE COMMENT) Hx Arteriovenous Shunt: Yes (LEFT ARM AV SHUNT) Other/Comment: pacemaker 2013, no additional information given by family and patient - ANESTHESIA Hx Anesthesia: Yes Hx Anesthesia Reactions: No (Denies) Hx Malignant Hyperthermia: No Meds Allergies/Adverse Reactions: Allergies Allergy/AdvReac Type Severity Reaction Status Date / Time oxycodone AdvReac Severe CONFUSION Verified 06/01/16 13:27 ferumoxides AdvReac REDNESS Verified 06/01/16 13:27 iron AdvReac REDNESS Verified 06/01/16 13:27 sodium ferric gluconate AdvReac REDNESS Verified 06/01/16 13:27 complex [From Ferrlecit] sucrose [From Ferrlecit] AdvReac REDNESS Verified 06/01/16 13:27 - Medications Medications: Current Medications Furosemide (Lasix) 40 mg PO DAILY [facility] Last Admin: 06/16/16 13:24 Dose: 40 mg Lisinopril (Zestril) 2.5 mg PO DAILY [facility] Last Admin: 06/16/16 13:25 Dose: 2.5 mg Metoprolol [facility] Last Admin: 06/16/16 13:25 Dose: 12.5 mg Pantoprazole Sodium (Protonix Ec Tab) 40 mg PO DAILY [facility] Last Admin: 06/16/16 13:25 Dose: 40 mg Physical Exam - Constitutional Appears: Older Than Stated Age - Head Exam Head Exam: ATRAUMATIC - Eye Exam Eye Exam: Normal appearance - ENT Exam ENT Exam: Mucous Membranes Moist - Respiratory Exam Respiratory Exam: Rhonchi - Cardiovascular Exam Cardiovascular Exam: REGULAR RHYTHM - GI/Abdominal Exam GI & Abdominal Exam: Normal Bowel Sounds - Exam External exam: NORMAL EXTERNAL EXAM - Extremities Exam Extremities exam: Positive for: normal inspection - Neurological Exam Neurological exam: Alert - Psychiatric Exam Psychiatric exam: Normal Mood - Skin Skin Exam: Warm Results - Vital Signs Recent Vital Signs: Last Vital Signs Temp 97.4 F L 06/16/16 08:05 Pulse 76 06/16/16 08:05 Resp 18 06/16/16 08:05 BP 126/71 06/16/16 13:24 Pulse Ox 99 06/16/16 08:05 - Labs Result Diagrams: 06/15/16 22:42 06/16/16 17:03 Labs: Laboratory Results - last 24 hr 06/16/16 06/16/16 06:45 11:20 POC Glucose (mg/dL) 138 H 196 H Assessment & Plan (1) Congestive heart failure with cardiomyopathy Assessment and Plan: will interrogate [facility] start chf meds will ask interventional radiology for paracentesis dialysis as per nephrology Status: Acute Priority: Medium
--- NOTE | 2016-06-16 15:05 | CP.PCM.HP ---
History of Present Illness - History of Present Illness History of Present Illness: 76 years old female patient, With past medical history of ESRD on HD, s/p ICD, presented with complaint of shortness of breath, Abdominal distention. No fever nausea vomiting. No chest pain palpitation Present on Admission - Present on Admission Any Indicators Present on Admission: No Past Patient History - Infectious Disease Hx of Infectious Diseases: None - Past Medical History & Family History Past Medical History?: Yes - Past Social History Smoking Status: Never Smoked - CARDIAC Hx Cardiac Disorders: Yes Hx Cardia Arrhythmia: Yes Hx Congestive Heart Failure: Yes Hx Hypercholesterolemia: Yes Hx Hypertension: Yes Hx Pacemaker: Yes (LEFT CHEST WALL) - PULMONARY Hx Respiratory Disorders: Yes Hx Asthma: Yes Hx Chronic Obstructive Pulmonary Disease (COPD): Yes - NEUROLOGICAL Hx Neurological Disorder: No - HEENT Hx HEENT Problems: Yes (SEE COMMENT) - RENAL Hx Chronic Kidney Disease: Yes Hx Dialysis: Yes Date of Last Dialysis Treatment: 06/01/16 - ENDOCRINE/METABOLIC Hx Endocrine Disorders: Yes Hx Diabetes Mellitus Type 2: Yes - HEMATOLOGICAL/ONCOLOGICAL Hx Anemia: Yes - INTEGUMENTARY Hx Dermatological Problems: No Other/Comment: herpes zoster - MUSCULOSKELETAL/RHEUMATOLOGICAL Hx Musculoskeletal Disorders: No Hx Falls: No - GASTROINTESTINAL Hx Gastrointestinal Disorders: Yes Hx Diverticulitis: Yes - GENITOURINARY/GYNECOLOGICAL Hx Genitourinary Disorders: No - PSYCHIATRIC Hx Psychophysiologic Disorder: No Hx Substance Use: No - SURGICAL HISTORY Hx Surgeries: Yes (SEE COMMENT) Hx Arteriovenous Shunt: Yes (LEFT ARM AV SHUNT) Other/Comment: pacemaker 2013, no additional information given by family and patient - ANESTHESIA Hx Anesthesia: Yes Hx Anesthesia Reactions: No (Denies) Hx Malignant Hyperthermia: No Meds Allergies/Adverse Reactions: Allergies Allergy/AdvReac Type Severity Reaction Status Date / Time oxycodone AdvReac Severe CONFUSION Verified 08/16/16 11:41 ferumoxides AdvReac REDNESS Verified 08/16/16 11:41 iron AdvReac REDNESS Verified 08/16/16 11:41 sodium ferric gluconate AdvReac REDNESS Verified 08/16/16 11:41 complex [From Ferrlecit] sucrose [From Ferrlecit] AdvReac REDNESS Verified 08/16/16 11:41 Physical Exam - Constitutional Appears: Well - Head Exam Head Exam: ATRAUMATIC, NORMAL INSPECTION, NORMOCEPHALIC - Eye Exam Eye Exam: EOMI, Normal appearance, PERRL Pupil Exam: NORMAL ACCOMODATION, PERRL - ENT Exam ENT Exam: Mucous Membranes Moist, Normal Exam - Neck Exam Neck exam: Positive for: Normal Inspection - Respiratory Exam Respiratory Exam: Decreased Breath Sounds - Cardiovascular Exam Cardiovascular Exam: REGULAR RHYTHM, +S1, +S2 - GI/Abdominal Exam GI & Abdominal Exam: Diminished Bowel Sounds, Soft - Rectal Exam Rectal Exam: Deferred Results - Vital Signs Recent Vital Signs: Last Vital Signs Temp 97.4 F L 06/16/16 08:05 Pulse 76 06/16/16 08:05 Resp 18 06/16/16 08:05 BP 126/71 06/16/16 13:24 Pulse Ox 99 06/16/16 08:05 - Labs Result Diagrams: 06/15/16 22:42 06/16/16 17:03 Labs: Laboratory Results - last 24 hr 06/16/16 06/16/16 06:45 11:20 POC Glucose (mg/dL) 138 H 196 H Assessment & Plan (1) Abdominal pain Status: Acute (2) Abdominal wall pain Status: Acute (3) Acute on chronic systolic congestive heart failure Status: Acute Priority: Medium (4) Anasarca Status: Acute (5) Ascites Status: Acute Priority: Medium (6) Ascites, malignant Status: Acute (7) Bronchitis, acute Status: Acute (8) CAD (coronary artery disease) Status: Acute (9) CHF (congestive heart failure) Status: Acute Priority: Low (10) COPD (chronic obstructive pulmonary disease) Status: Acute (11) Chest pain Status: Acute (12) Cirrhosis Status: Acute (13) Congestive heart failure with cardiomyopathy Status: Acute Priority: Medium (14) Contusion of foot, left Status: Acute (15) Deep vein thrombosis (DVT) Status: Acute (16) Dialysis patient Status: Acute (17) Diarrhea Status: Acute (18) Diarrhea Status: Acute (19) Dyspnea Status: Acute (20) Dyspnea Status: Acute (21) ESRD (end stage renal disease) Status: Acute (22) ESRD needing dialysis Status: Acute (23) Fluid overload Status: Acute (24) Foot pain Status: Acute (25) HLD (hyperlipidemia) Status: Acute (26) Hepatorenal syndrome Status: Acute (27) Herpes zoster Status: Acute (28) Humerus fracture Status: Acute (29) Hyperkalemia Status: Acute (30) Hypoglycemia Status: Acute Priority: Low (31) Incarcerated umbilical hernia Status: Acute (32) Increased ammonia level Status: Acute (33) Ischemic cardiomyopathy Status: Acute (34) Knee contusion Status: Acute (35) Lethargy Status: Acute (36) Liver disease Status: Acute (37) Nausea Status: Acute (38) Other ascites Status: Acute (39) Patient left without being seen Status: Acute (40) Poorly controlled ascites Status: Acute (41) Pre-operative cardiovascular examination, LVEF < 35% Status: Acute (42) Prophylactic measure Status: Acute (43) Pulmonary HTN Status: Acute (44) Renal failure Status: Acute (45) Renal insufficiency Status: Acute (46) Shortness of breath Status: Acute (47) Small bowel obstruction Status: Acute (48) Upper respiratory infection Status: Acute (49) Ventral hernia Status: Acute (50) Vomiting Status: Acute (51) Wrist contusion Status: Acute (52) Chronic congestive heart failure Status: Chronic (53) Chronic renal disease Status: Chronic Priority: Medium (54) Cirrhosis of liver with ascites Status: Chronic Priority: High (55) Diabetes mellitus Status: Chronic (56) ESRD (end stage renal disease) on dialysis Status: Chronic (57) End stage renal disease Status: Chronic Priority: Medium (58) Hypertension Status: Chronic (59) Liver failure Status: Chronic Priority: Medium (60) Pacemaker Status: Chronic (61) Pelvic fracture Status: Chronic (62) Type II diabetes mellitus Status: Chronic Priority: Medium (63) Uncontrolled diabetes mellitus Status: Chronic - Assessment and Plan (Free Text) Plan: Labs and meds reviewed Consults on board Vitals monitoring Oxygen Paracentesis
--- NOTE | 2016-06-16 15:15 | PCM.SURG1 ---
Surgeon's Initial Post Op Note - Surgeon's Notes Surgeon: Steven Monroy MD Mobile Equipment Mechanic: NONE Type of Anesthesia: Local Pre-Operative Diagnosis: Ascites Operative Findings: US showed a large amount of ascites Post-Operative Diagnosis: Ascites Operation Performed: US guided paracentesis. Specimen/Specimens Removed: 5 liters of straw colored fluid Estimated Blood Loss: EBL {In ML}: 0 Blood Products Given: N/A Drains Used: No Drains Post-Op Condition: Fair Date of Surgery/Procedure: 06/16/16 Time of Surgery/Procedure: 14:55
--- NOTE | 2016-06-16 15:34 | CP.PCM.PN ---
<Ishan Calderon - Last Filed: 06/16/16 16:10> Subjective - Date & Time of Evaluation Date of Evaluation: 06/16/16 Time of Evaluation: 10:30 - Subjective Subjective: Dr. Barry service: Patient is seen and examined in room. She is complaining of abdominal distention, diffaculty breathing, and orthopnea. She is asking for fluid to be taken out of her belly. Objective - Vital Signs/Intake and Output Vital Signs (last 24 hours): Temp Pulse Resp BP Pulse Ox 97.4 F L 76 18 126/71 99 06/16/16 08:05 06/16/16 08:05 06/16/16 08:05 06/16/16 13:24 06/16/16 08:05 - Medications Medications: Current Medications Furosemide (Lasix) 40 mg PO DAILY [facility] Last Admin: 06/16/16 13:24 Dose: 40 mg Lisinopril (Zestril) 2.5 mg PO DAILY [facility] Last Admin: 06/16/16 13:25 Dose: 2.5 mg Metoprolol Tartrate (Lopressor) 12.5 mg PO BIDCC [facility] Last Admin: 06/16/16 13:25 Dose: 12.5 mg Pantoprazole Sodium (Protonix Ec Tab) 40 mg PO DAILY [facility] Last Admin: 06/16/16 13:25 Dose: 40 mg - Labs Labs: PT 13.4 SECONDS (9.7-12.2) H 06/15/16 22:42 INR 1.2 06/15/16 22:42 APTT 34 SECONDS (21-34) 06/15/16 22:42 - Constitutional Appears: Non-toxic, No Acute Distress, Agitated - Head Exam Head Exam: NORMAL INSPECTION - Eye Exam Eye Exam: Normal appearance, PERRL. absent: Scleral icterus Pupil Exam: NORMAL ACCOMODATION - ENT Exam ENT Exam: absent: Normal Exam - Respiratory Exam Respiratory Exam: Clear to Ausculation Bilateral. absent: Rales, Rhonchi, Wheezes - Cardiovascular Exam Cardiovascular Exam: REGULAR RHYTHM, RRR, +S1, +S2. absent: Gallop, Rubs - GI/Abdominal Exam GI & Abdominal Exam: Soft, Normal Bowel Sounds. absent: Tenderness - Extremities Exam Extremities Exam: Normal Inspection. absent: Pedal Edema - Psychiatric Exam Psychiatric exam: Normal Affect, Normal Mood Assessment and Plan (1) Fluid overload Assessment & Plan: Patient is ESRD on Hem dialysis Sunday, and Sunday. She will need dialyiss and paracentisis. Have consulted Dr. Macias for cardiology to medically optimized Status: Acute (2) Ascites Assessment & Plan: Paracentesis by IR Status: Acute (3) Congestive heart failure with cardiomyopathy Assessment & Plan: Dr. Macias consulted, patient started on isrrael and beta chata, will also have her AICD device investigated. Will also do an echo Last echo shows a systolic ejection fraction of 20%. Status: Acute (4) Prophylactic measure Assessment & Plan: Protonix 40mg Heparin 5000 units sc q12h Status: Acute <Quin Barry S - Last Filed: 06/16/16 18:39> Objective - Vital Signs/Intake and Output Vital Signs (last 24 hours): Temp Pulse Resp BP Pulse Ox 97.4 F L 52 L 18 86/50 L 96 06/16/16 16:55 06/16/16 17:54 06/16/16 17:54 06/16/16 17:55 06/16/16 16:55 - Medications Medications: Current Medications Furosemide (Lasix) 40 mg PO DAILY [facility] Last Admin: 06/16/16 13:24 Dose: 40 mg Heparin Sodium (Porcine) (Heparin) 5,000 units SC Q12H [facility] Lisinopril (Zestril) 2.5 mg PO DAILY [facility] Last Admin: 06/16/16 13:25 Dose: 2.5 mg Metoprolol Tartrate (Lopressor) 12.5 mg PO BIDCC [facility] Last Admin: 06/16/16 17:27 Dose: Not Given Pantoprazole Sodium (Protonix Ec Tab) 40 mg PO DAILY [facility] Last Admin: 06/16/16 13:25 Dose: 40 mg - Labs Labs: 06/16/16 17:03 PT 13.4 SECONDS (9.7-12.2) H 06/15/16 22:42 INR 1.2 06/15/16 22:42 APTT 34 SECONDS (21-34) 06/15/16 22:42 Attending/Attestation - Attestation I have personally seen and examined this patient.: Yes I have fully participated in the care of the patient.: Yes I have reviewed all pertinent clinical information, including history, physical exam and plan: Yes Notes (Text): 06/16/16 18:38 case seen and discused wit staff and resident mx as agreed
--- NOTE | 2016-06-16 15:37 | CP.PCM.PN ---
Subjective - Date & Time of Evaluation Date of Evaluation: 06/16/16 Time of Evaluation: 13:40 - Subjective Subjective: clinically same Objective - Vital Signs/Intake and Output Vital Signs (last 24 hours): Temp Pulse Resp BP Pulse Ox 97.4 F L 76 18 126/71 99 06/16/16 08:05 06/16/16 08:05 06/16/16 08:05 06/16/16 13:24 06/16/16 08:05 - Medications Medications: Current Medications Furosemide (Lasix) 40 mg PO DAILY [facility] Last Admin: 06/16/16 13:24 Dose: 40 mg Lisinopril (Zestril) 2.5 mg PO DAILY [facility] Last Admin: 06/16/16 13:25 Dose: 2.5 mg [facility]rolol [facility] Last Admin: 06/16/16 13:25 Dose: 12.5 mg Pantoprazole Sodium (Protonix Ec Tab) 40 mg PO DAILY [facility] Last Admin: 06/16/16 13:25 Dose: 40 mg - Labs Labs: PT 13.4 SECONDS (9.7-12.2) H 06/15/16 22:42 INR 1.2 06/15/16 22:42 APTT 34 SECONDS (21-34) 06/15/16 22:42 - Constitutional Appears: Well - Head Exam Head Exam: ATRAUMATIC, NORMAL INSPECTION, NORMOCEPHALIC - Eye Exam Eye Exam: EOMI, Normal appearance, PERRL Pupil Exam: NORMAL ACCOMODATION, PERRL - ENT Exam ENT Exam: Mucous Membranes Moist, Normal Exam - Neck Exam Neck Exam: Full ROM, Normal Inspection. absent: Lymphadenopathy - Respiratory Exam Respiratory Exam: Decreased Breath Sounds - Cardiovascular Exam Cardiovascular Exam: REGULAR RHYTHM, +S1, +S2 - GI/Abdominal Exam GI & Abdominal Exam: Soft, Diminished Bowel Sounds - Rectal Exam Rectal Exam: Deferred
--- NOTE | 2016-06-16 15:38 | US ---
Date of Procedure: 06/16/2016 PROCEDURE: Ultrasound-guided paracentesis, CPT 57520 Medications: 8 cc 1% Lidocaine HISTORY: Ascites, abdominal pain, cirrhosis TECHNIQUE: Following informed consent , the patient was placed supine on the stretcher and the site was marked. A limited abdominal ultrasound was performed that showed a large amount of intra-abdominal fluid. Procedural time out was called and the Pt's abdomen was marked and prepped and draped in the usual sterile fashion. Ultrasound-guided large volume paracentesis performed. A total of 5 liters of straw colored fluid was removed without complication. IMPRESSION: Ultrasound-guided large volume paracentesis.
[2016-06-16 17:19] LABS: POTASSIUM 5.5 mmol/L (3.6-5.2)
[2016-06-16] MEDS ORDERED: Digoxin 125 mcg (0.125 mg) Tab PO SCH (18:00)
--- NOTE | 2016-06-17 08:36 | CP.PCM.PN ---
Subjective - Date & Time of Evaluation Date of Evaluation: 06/17/16 Time of Evaluation: 08:25 - Subjective Subjective: Pt feeling better tolerating PO Objective - Vital Signs/Intake and Output Vital Signs (last 24 hours): Temp Pulse Resp BP Pulse Ox 98.2 F 77 20 102/59 L 95 06/16/16 23:10 06/17/16 07:30 06/16/16 23:10 06/16/16 23:10 06/16/16 23:10 Intake and Output: 06/17/16 06/17/16 06:59 18:59 Intake Total 240 Balance 240 - Medications Medications: Current Medications Furosemide (Lasix) 40 mg PO DAILY [facility] Last Admin: 06/16/16 13:24 Dose: 40 mg Heparin Sodium (Porcine) (Heparin) 5,000 units SC Q12 [facility] Last Admin: 06/16/16 21:50 Dose: Not Given Lisinopril (Zestril) 2.5 mg PO DAILY [facility] Last Admin: 06/16/16 13:25 Dose: 2.5 mg Metoprolol [facility]art[facility]) [facility] Last Admin: 06/16/16 17:27 Dose: Not Given Pantoprazole Sodium (Protonix Ec Tab) 40 mg PO DAILY [facility] Last Admin: 06/16/16 13:25 Dose: 40 mg - Labs Labs: 06/16/16 17:03 PT 13.4 SECONDS (9.7-12.2) H 06/15/16 22:42 INR 1.2 06/15/16 22:42 APTT 34 SECONDS (21-34) 06/15/16 22:42 - Constitutional Appears: Well - Head Exam Head Exam: ATRAUMATIC - Eye Exam Eye Exam: Normal appearance - ENT Exam ENT Exam: Mucous Membranes Moist - Cardiovascular Exam Cardiovascular Exam: Gallop, REGULAR RHYTHM - GI/Abdominal Exam GI & Abdominal Exam: Distended, Soft - Exam External exam: NORMAL EXTERNAL EXAM - Extremities Exam Extremities Exam: Normal Inspection - Neurological Exam Neurological Exam: Alert, Awake - Psychiatric Exam Psychiatric exam: Normal Affect - Skin Skin Exam: Warm Assessment and Plan (1) Congestive heart failure with cardiomyopathy Assessment & Plan: Pt tolerating CHF meds abdomen feeling better icd interrogation Status: Acute
[2016-06-17 09:14] VITALS: RESP 18
[2016-06-17 11:38] VITALS: BP 111/49; PULSE 63; TEMP 97.4; O2SAT 97
--- NOTE | 2016-06-17 13:58 | PCM.HF ---
Heart Failure Core Measure - Heart Failure Ejection Fraction: Less Than 40 % JESSICA Inhibitor Prescribed: No Contraindication/Reason for not providing: ESRD Beta-Irma Prescribed: None Contraindication/Reason for not providing: CHRONIC COUGH Angiotensin II Receptor Irma Prescribed: No Contraindication/Reason for not providing: ESRD AnticoagulationTherapy for Atrial Fibrillation/Atrialflutter: No Contraindication/Reason for not providing: NO HX OF AFIB Aldosterone Antagonist Prescribed: No Contraindication/Reason for not providing: ESRD/ RISK FOR HYPER KALEMIA Hydralazine Nitrate Prescribed: No Contraindication/Reason for not providing: D/C 2nd to hypotension Implantable Cardioverter Defibrillator Therapy: No Contraindication/Reason for not providing: pt has PACEMAKER Cardiac Resynchronization Therapy Prescribed: No Contraindication/Reason for not providing: PT HAS PACE MAKER - Follow up Will be discharged to: Home Follow Up Date (must be within 7 days from discharge): 06/20/16 Follow Up Time: 09:00
--- NOTE | 2016-06-17 13:58 | CP.PCM.PN ---
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 Fernando loomis, states feels better, sob improved after paracentesis , s/p HD today as per Dr. Fernando loomis pt can be discharged home today and f/u with his office on Sunday and continue HD as scheduled Objective - Vital Signs/Intake and Output Vital Signs (last 24 hours): Temp Pulse Resp BP Pulse Ox 97.4 F L 63 18 111/49 L 97 06/17/16 11:15 06/17/16 11:15 06/17/16 11:15 06/17/16 11:15 06/17/16 11:15 Intake and Output: 06/17/16 06/17/16 06:59 18:59 Intake Total 240 Balance 240 - Medications Medications: Current Medications Furosemide (Lasix) 40 mg PO DAILY [facility] Last Admin: 06/16/16 13:24 Dose: 40 mg Heparin Sodium (Porcine) (Heparin) 5,000 units SC Q12 [facility] Last Admin: 06/16/16 21:50 Dose: Not Given Lisinopril (Zestril) 2.5 mg PO DAILY [facility] Last Admin: 06/16/16 13:25 Dose: 2.5 mg [facility]rol[facility] Admin: 06/16/16 17:27 Dose: Not Given Pantoprazole Sodium (Protonix Ec Tab) 40 mg PO DAILY [facility] Last Admin: 06/16/16 13:25 Dose: 40 mg - Labs Labs: 06/16/16 17:03 PT 13.4 SECONDS (9.7-12.2) H 06/15/16 22:42 INR 1.2 06/15/16 22:42 APTT 34 SECONDS (21-34) 06/15/16 22:42
--- NOTE | 2016-06-17 14:09 | CP.PCM.PN ---
Subjective - Date & Time of Evaluation Date of Evaluation: 06/17/16 Time of Evaluation: 14:00 - Subjective Subjective: clinically same Objective - Vital Signs/Intake and Output Vital Signs (last 24 hours): Temp Pulse Resp BP Pulse Ox 97.4 F L 63 18 111/49 L 97 06/17/16 11:15 06/17/16 11:15 06/17/16 11:15 06/17/16 11:15 06/17/16 11:15 Intake and Output: 06/17/16 06/17/16 06:59 18:59 Intake Total 240 Balance 240 - Medications Medications: Current Medications Furosemide (Lasix) 40 mg PO DAILY [facility] Last Admin: 06/16/16 13:24 Dose: 40 mg Heparin Sodium (Porcine) (Heparin) 5,000 units SC Q12 [facility] Last Admin: 06/16/16 21:50 Dose: Not Given Lisinopril (Zestril) 2.5 mg PO DAILY [facility] Last Admin: 06/16/16 13:25 Dose: 2.5 mg Metoprolol Tartrate ([facility]opressor) [facility] Last Admin: 06/16/16 17:27 Dose: Not Given Pantoprazole Sodium (Protonix Ec Tab) 40 mg PO DAILY [facility] Last Admin: 06/16/16 13:25 Dose: 40 mg - Labs Labs: 06/16/16 17:03 PT 13.4 SECONDS (9.7-12.2) H 06/15/16 22:42 INR 1.2 06/15/16 22:42 APTT 34 SECONDS (21-34) 06/15/16 22:42 - Constitutional Appears: Well - Head Exam Head Exam: ATRAUMATIC, NORMAL INSPECTION, NORMOCEPHALIC - Eye Exam Eye Exam: EOMI, Normal appearance, PERRL Pupil Exam: NORMAL ACCOMODATION, PERRL - ENT Exam ENT Exam: Mucous Membranes Moist, Normal Exam - Neck Exam Neck Exam: Full ROM, Normal Inspection. absent: Lymphadenopathy - Cardiovascular Exam Cardiovascular Exam: REGULAR RHYTHM, +S1, +S2 - GI/Abdominal Exam GI & Abdominal Exam: Soft, Diminished Bowel Sounds - Rectal Exam Rectal Exam: Deferred Assessment and Plan (1) Abdominal pain Status: Acute (2) Abdominal wall pain Status: Acute (3) Acute on chronic systolic congestive heart failure Status: Acute (4) Anasarca Status: Acute (5) Ascites Status: Acute (6) Ascites, malignant Status: Acute (7) Bronchitis, acute Status: Acute (8) CAD (coronary artery disease) Status: Acute (9) CHF (congestive heart failure) Status: Acute (10) COPD (chronic obstructive pulmonary disease) Status: Acute (11) Chest pain Status: Acute (12) Cirrhosis Status: Acute (13) Congestive heart failure with cardiomyopathy Status: Acute (14) Contusion of foot, left Status: Acute (15) Deep vein thrombosis (DVT) Status: Acute (16) Dialysis patient Status: Acute (17) Diarrhea Status: Acute (18) Diarrhea Status: Acute (19) Dyspnea Status: Acute (20) Dyspnea Status: Acute (21) ESRD (end stage renal disease) Status: Acute (22) ESRD needing dialysis Status: Acute (23) Fluid overload Status: Acute (24) Foot pain Status: Acute (25) HLD (hyperlipidemia) Status: Acute (26) Hepatorenal syndrome Status: Acute (27) Herpes zoster Status: Acute (28) Humerus fracture Status: Acute (29) Hyperkalemia Status: Acute (30) Hypoglycemia Status: Acute (31) Incarcerated umbilical hernia Status: Acute (32) Increased ammonia level Status: Acute (33) Ischemic cardiomyopathy Status: Acute (34) Knee contusion Status: Acute (35) Lethargy Status: Acute (36) Liver disease Status: Acute (37) Nausea Status: Acute (38) Other ascites Status: Acute (39) Patient left without being seen Status: Acute (40) Poorly controlled ascites Status: Acute (41) Pre-operative cardiovascular examination, LVEF < 35% Status: Acute (42) Prophylactic measure Status: Acute (43) Pulmonary HTN Status: Acute (44) Renal failure Status: Acute (45) Renal insufficiency Status: Acute (46) Shortness of breath Status: Acute (47) Small bowel obstruction Status: Acute (48) Upper respiratory infection Status: Acute (49) Ventral hernia Status: Acute (50) Vomiting Status: Acute (51) Wrist contusion Status: Acute (52) Chronic congestive heart failure Status: Chronic (53) Chronic renal disease Status: Chronic (54) Cirrhosis of liver with ascites Status: Chronic (55) Diabetes mellitus Status: Chronic (56) ESRD (end stage renal disease) on dialysis Status: Chronic (57) End stage renal disease Status: Chronic (58) Hypertension Status: Chronic (59) Liver failure Status: Chronic (60) Pacemaker Status: Chronic (61) Pelvic fracture Status: Chronic (62) Type II diabetes mellitus Status: Chronic (63) Uncontrolled diabetes mellitus Status: Chronic - Assessment and Plan (Free Text) Plan: Continue same Lasix Protonix Blood pressure control GI consult Dialysis as per schedule
--- NOTE | 2016-06-21 13:01 | CARD ---
APPROVED REPORT EXAM: Two-dimensional and M-mode echocardiogram with Doppler and color Doppler. Other Information Quality : GoodRhythm : INDICATION Dyspnea Cardiac Disease: CAD Chest Pain Congestive Heart Failure COPD Surgery/Intervention Pacemaker: RISK FACTORS Hypertension Hyperlipidemia Diabetes 2D DIMENSIONS LVOT Diameter1.8 (1.8-2.4cm) M-Mode DIMENSIONS RVDd2.98 (2.1-3.2cm)Left Atrium (MM)4.92 (2.5-4.0cm) IVSd0.90 (0.7-1.1cm)Aortic Root3.01 (2.2-3.7cm) LVDd6.04 (4.0-5.6cm)Aortic Cusp Exc.0.74 (1.5-2.0cm) PWd0.69 (0.7-1.1cm)FS (%) 8 % LVDs5.55 (2.0-3.8cm)LVEF (%)17 (>50%) Aortic Valve AoV Peak Nwdkmcqo839.6cm/sAoV VTI82.0cmAO Peak GR.49mmHg LVOT Peak Tekqbuhz80.4cm/sLVOT VTI16.08cmAO Mean GR.29mmHg LANG (VMAX)0.98cq1LBN (VTI)0.51cm2 Mitral Valve MV E Irzichyy064.2cm/sMV A Ilsxfmbs875.5cm/sE/A ratio1.3 TDI E/Lateral E'0.0E/Medial E'0.0 Tricuspid Valve TR Peak Wnxneakp617hh/sTR Peak Gr.66jwDcPMGY21giFj LEFT VENTRICLE The Left Ventricle is mildly dilated. There is normal left ventricular wall thickness. The systolic function is severely impaired. There is global hypokinesis of the left ventricle. Paradoxic septum consistent right ventricle volume overload. No left ventricle thrombus noted on this study. There is no ventricular septal defect visualized. There is no left ventricular aneurysm. There is no mass noted in the left ventricle. RIGHT VENTRICLE The right ventricle is borderline dilated. There is normal right ventricular wall thickness. Systolic function is mildly reduced. ATRIA The left atrium is mildly dilated. The right atrium is mildly dilated. A catheter is seen in the right atrium consistent with history. The interatrial septum is intact with no evidence for an atrial septal defect. AORTIC VALVE The aortic valve is calcified and displays decreased opening. No aortic regurgitation is present. There is severe valvular aortic stenosis. Calculated aortic valve area is 0.51 cm2 with maximum pressure gradient of 49 mmHg and mean pressure gradient of 29 mmHg. There is no aortic valvular vegetation. MITRAL VALVE The mitral valve is mildly thickened. Mitral annular calcification is moderate. Mitral regurgitation is moderate. TRICUSPID VALVE The tricuspid valve is normal in structure. There is moderate to severe tricuspid regurgitation. PULMONIC VALVE The pulmonary valve is normal in structure. There is trace pulmonic valvular regurgitation. GREAT VESSELS The aortic root is normal in size. The ascending aorta is normal in size. The pulmonary artery is normal. The IVC is normal in size and collapses >50% with inspiration. PERICARDIAL EFFUSION There is no pericardial effusion. There is moderate right pleural effusion. <Conclusion> The Left Ventricle is mildly dilated. The systolic function is severely impaired. There is global hypokinesis of the left ventricle. Paradoxic septum consistent right ventricle volume overload. The left atrium is mildly dilated. The right atrium is mildly dilated. There is severe valvular aortic stenosis. Calculated aortic valve area is 0.51 cm2 with maximum pressure gradient of 49 mmHg and mean pressure gradient of 29 mmHg. Mitral regurgitation is moderate. There is moderate to severe tricuspid regurgitation. Severe congestive cardiomyopathy. LVEF IS 17%.
--- NOTE | 2016-06-23 18:51 | C.PDOC ---
History Of Present Illness Patient presents to ED c/o abdominal distension/ascites and worsening SOB. Patient has h/o ESRD on HD, admits she missed her dialysis today. Patient states she typically gets a paracentesis every 2 weeks. She denies chest pain, fever, vomiting/diarrhea. Time Seen by Provider: 06/15/16 22:36 Chief Complaint (Nursing): Abdominal Pain History Per: Patient, Family (son at bedside ) History/Exam Limitations: no limitations Onset/Duration Of Symptoms: Days Current Symptoms Are (Timing): Still Present Severity: Moderate Past Medical History Reviewed: Historical Data, Nursing Documentation, Vital Signs Vital Signs: Last Vital Signs Temp 97.4 F L 06/17/16 11:15 Pulse 63 06/17/16 11:15 Resp 18 06/17/16 11:15 BP 111/49 L 06/17/16 11:15 Pulse Ox 97 06/17/16 11:15 - Medical History PMH: Anemia, Asthma, CAD, Cardia Arrhythmia, CHF, COPD, Diabetes, Diverticulitis , Fractures, Hiatal Hernia, HTN, Hypercholesterolemia, Kidney Stones, End Stage Renal Disease, Chronic Kidney Disease Surgical History: Pacemaker (LEFT CHEST WALL) - [facility] Procedures BYPASS LEFT BRACHIAL ARTERY TO UPPER ARM VEIN, OPEN APPROACH (12/14/14) C.A.T. SCAN OF THORAX (08/16/13) DIALYSIS ARTERIOVENOSTOM (09/14/14) DRAINAGE OF PERITONEAL CAVITY WITH DRAIN DEV, PERC APPROACH (02/24/16) DRAINAGE OF PERITONEAL CAVITY, PERCUTANEOUS APPROACH (06/15/16) DX ULTRASOUND-ABDOMEN (10/25/14) HEMODIALYSIS (11/16/14) MEASUREMENT OF CARDIAC DEFIBRILLATOR, EXTERNAL APPROACH (12/14/14) PACKED CELL TRANSFUSION (08/16/13) PERCUTANEOUS ABDOMINAL DRAINAGE (11/16/14) PERFORMANCE OF URINARY FILTRATION, MULTIPLE (06/15/16) PERFORMANCE OF URINARY FILTRATION, SINGLE (05/11/16) REPOSITION LEFT BASILIC VEIN, OPEN APPROACH (05/30/15) SUPPLEMENT ABDOMINAL WALL WITH SYNTH SUB, OPEN APPROACH (03/17/15) THORACENTESIS (08/16/13) ULTRASONOGRAPHY OF ABDOMEN (06/15/16) VENOUS CATHETERIZATION FOR RENAL DIALYSIS (03/01/14) Family History: States: Diabetes - Social History Hx Tobacco Use: No Hx Alcohol Use: No Hx Substance Use: No - Immunization History Hx Tetanus Toxoid Vaccination: No Hx Influenza Vaccination: No (pt declines as per son) Hx Pneumococcal Vaccination: No Review Of Systems Except As Marked, All Systems Reviewed And Found Negative. Constitutional: Negative for: Fever, Chills Cardiovascular: Negative for: Chest Pain, Palpitations Respiratory: Positive for: Shortness of Breath Gastrointestinal: Positive for: Abdominal Pain (distension). Negative for: Nausea, Vomiting, Diarrhea Skin: Negative for: Rash Physical Exam - Physical Exam Appears: Non-toxic, Chronically Ill, Other (speakinf in full sentences) Skin: Warm, Dry Eye(s): bilateral: Normal Inspection Oral Mucosa: Moist Cardiovascular: Rhythm Regular, Murmur (3/6 holosystolic murmur) Respiratory: No Accessory Muscle Use, Rales (bases B/L), No Rhonchi, No Wheezing Gastrointestinal/Abdominal: Bowel Sounds, Soft, No Tenderness, No Guarding, No Rebound, Ascites Extremity: Pedal Edema (B/L LEs), No Calf Tenderness Pulses: Left Dorsalis Pedis: Normal, Right Dorsalis Pedis: Normal Neurological/Psych: Oriented x3 ED Course And Treatment - Laboratory Results Result Diagrams: 06/15/16 22:42 04 17:03 ECG: Interpreted By Me, Viewed By Me (NSR 78 bpm, normal axis, T wave inversions I, II, aVF, V5, V6, no peaked T waves or widening of QRS, no acute ST changes) O2 Sat by Pulse Oximetry: 97 (RA) Pulse Ox Interpretation: Normal - Radiology CXR: Interpreted by Me, Viewed By Me (cardiomegaly, no infiltrates/effusions, (+ ) pulm vascular congestion) Progress Note: Blood work, CXR, EKG ordered and reviewed. Discussed patient with PMD/tow motor operator Dr. Fernando Barry, he agrees with admission for fluid overload, ESRD on HD, ascites with need for paracentesis. Patient not in resp disress, can be dialyzed/tapped in AM. - Physician Consult Information Physician Contacted: Quin Barry Disposition - Disposition Disposition: HOSPITALIZED Disposition Time: 23:17 Condition: STABLE - Clinical Impression Clinical Impression: ESRD (end stage renal disease) on dialysis, Fluid overload, Ascites, Liver disease, Dyspnea Decision To Admit - Pt Status Changed To: Hospital Disposition Of: Inpatient - Admit Certification Admit to Inpatient:: After my assessment, the patient will require hospitalization for at least two midnights. This is because of the severity of symptoms shown, intensity of services needed, and/or the medical risk in this patient being treated as an outpatient. - InPatient: Physician Admission Certification: I certify that this patient requires 2 or more midnights of care for the following reason:: see notes - . Bed Request Type: Telemetry Admitting Physician: Quin Barry Patient Diagnosis: Dyspnea, ESRD (end stage renal disease) on dialysis, Fluid overload, Liver disease, Ascites
== END 2016-06-17 14:45 | disposition home or self-care (01) | DRG 291 ==
LOC: C.ER 21:19 → C.6T 23:17
PROVIDERS: ADMIT Internal Medicine Nephrology; ATTEND Internal Medicine Nephrology
PROC: 5A1D60Z (ICD-10-PCS; principal; 2016-06-16)
PROC: 0W9G3ZZ Drainage of Peritoneal Cavity, Percutaneous Approach (ICD-10-PCS; 2016-06-16)
PROC: BW40ZZZ Ultrasonography of Abdomen (ICD-10-PCS; 2016-06-16)
DX: I13.2 Hypertensive heart and chronic kidney disease with heart failure and with stage 5 chronic kidney disease, or end stage renal disease (principal); N18.6 End stage renal disease; R18.8 Other ascites; I42.9 Cardiomyopathy, unspecified; E11.22 Type 2 diabetes mellitus with diabetic chronic kidney disease; I50.9 Heart failure, unspecified; J45.909 Unspecified asthma, uncomplicated; J44.9 Chronic obstructive pulmonary disease, unspecified; D64.9 Anemia, unspecified; E78.00 Pure hypercholesterolemia, unspecified; B02.9 Zoster without complications; Z95.0 Presence of cardiac pacemaker; Z99.2 Dependence on renal dialysis; Z79.4 Long term (current) use of insulin

== ENCOUNTER 2016-06-29 20:17 | Inpatient (IN) | payer MEDICARE, OTHER ==
[2016-06-29 20:18] VITALS: PULSE 68; BMI 23.2
[2016-06-29 21:00] LABS: BASO % 0.9 % (0.0-2.0); EOS # 0.2 K/uL (0.0-0.7); EOS % 3.9 % (0.0-4.0); HEMATOCRIT 37.5 % (34.0-47.0); LYMPH # 0.9 K/uL (1.0-4.3); LYMPH % 15.4 % (20.0-40.0); MEAN CELL VOLUME 93.2 fL (81.0-99.0); MEAN CORPUSCULAR HEMOGLOBIN 29.8 pg (27.0-31.0); MEAN PLATELET VOLUME 9.1 fL (7.2-11.7); MONO # 0.7 K/uL (0.0-0.8); MONO % 12.8 % (0.0-10.0); NRBC % 0.1 % (0.0-2.0); RED CELL DISTRIBUTION WIDTH 14.6 % (11.5-14.5); WHITE BLOOD COUNT 5.5 K/uL (4.8-10.8)
[2016-06-29 21:06] LABS: POTASSIUM 4.4 mmol/L (3.6-5.2)
[2016-06-29 21:08] LABS: BILIRUBIN,TOTAL 0.7 mg/dL (0.2-1.3)
[2016-06-29 21:09] LABS: CALCIUM 6.9 mg/dl (8.6-10.4); TOTAL PROTEIN 7.4 g/dL (6.3-8.3)
[2016-06-29 21:10] LABS: INR 1.2
--- NOTE | 2016-06-29 21:14 | C.PDOC ---
History Of Present Illness Patient presents to ED c/o abdominal distension/ascites for a few days. Patient has h/o ESRD on HD, admits she missed her dialysis today. Patient states she typically gets a paracentesis every 2 weeks. She denies chest pain, fever, vomiting/diarrhea Time Seen by Provider: 06/29/16 21:13 Chief Complaint (Nursing): Abdominal Pain History Per: Patient History/Exam Limitations: no limitations Onset/Duration Of Symptoms: Days Current Symptoms Are (Timing): Still Present Context: Other Severity: Moderate Pain Scale Rating Of: 4 Location Of Pain/Discomfort: Diffuse Radiation Of Pain To:: None Quality Of Discomfort: Dull, Cramping Associated Symptoms: denies: Fever, Chills, Nausea, Vomiting, Diarrhea Exacerbating Factors: None Alleviating Factors: None Last Bowel Movement: Today Recent travel outside of the [place]: No Additional History Per: Family Abnormal Vaginal Bleeding: No Past Medical History Reviewed: Historical Data, Nursing Documentation, Vital Signs - Medical History PMH: Anemia, Asthma, CAD, Cardia Arrhythmia, CHF, COPD, Diabetes, Diverticulitis , Fractures, Hiatal Hernia, HTN, Hypercholesterolemia, Kidney Stones, End Stage Renal Disease, Chronic Kidney Disease Surgical History: Pacemaker (LEFT CHEST WALL) - [facility] Procedures BYPASS LEFT BRACHIAL ARTERY TO UPPER ARM VEIN, OPEN APPROACH (12/14/14) C.A.T. SCAN OF THORAX (08/16/13) DIALYSIS ARTERIOVENOSTOM (09/14/14) DRAINAGE OF PERITONEAL CAVITY WITH DRAIN DEV, PERC APPROACH (02/24/16) DRAINAGE OF PERITONEAL CAVITY, PERCUTANEOUS APPROACH (06/15/16) DX ULTRASOUND-ABDOMEN (10/25/14) HEMODIALYSIS (11/16/14) MEASUREMENT OF CARDIAC DEFIBRILLATOR, EXTERNAL APPROACH (12/14/14) PACKED CELL TRANSFUSION (08/16/13) PERCUTANEOUS ABDOMINAL DRAINAGE (11/16/14) PERFORMANCE OF URINARY FILTRATION, MULTIPLE (06/15/16) PERFORMANCE OF URINARY FILTRATION, SINGLE (05/11/16) REPOSITION LEFT BASILIC VEIN, OPEN APPROACH (05/30/15) SUPPLEMENT ABDOMINAL WALL WITH SYNTH SUB, OPEN APPROACH (03/17/15) THORACENTESIS (08/16/13) ULTRASONOGRAPHY OF ABDOMEN (06/15/16) VENOUS CATHETERIZATION FOR RENAL DIALYSIS (03/01/14) Family History: States: No Known Family Hx, Diabetes - Social History Hx Tobacco Use: No Hx Alcohol Use: No Hx Substance Use: No - Immunization History Hx Tetanus Toxoid Vaccination: No Hx Influenza Vaccination: No (pt declines as per son) Hx Pneumococcal Vaccination: No Review Of Systems Constitutional: Negative for: Fever, Chills ENT: Negative for: Throat Pain Cardiovascular: Negative for: Chest Pain Respiratory: Positive for: Shortness of Breath, SOB with Excertion Gastrointestinal: Positive for: Abdominal Pain, Other (Abdominal distension/ ascites). Negative for: Nausea, Vomiting, Diarrhea Musculoskeletal: Negative for: Neck Pain Skin: Negative for: Rash, Lesions Neurological: Positive for: Weakness (generalized) Psych: Negative for: Anxiety Physical Exam - Physical Exam Appears: Non-toxic Skin: Warm, Dry, No Rash Eye(s): bilateral: Normal Inspection Oral Mucosa: Moist Neck: Supple Chest: Symmetrical Cardiovascular: Rhythm Regular, Murmur (4/6 holosystolic) Respiratory: Rales (Rales at bases) Gastrointestinal/Abdominal: No Soft, Tenderness (mild), Distention, No Guarding , No Rebound, Ascites Back: No CVA Tenderness, No Vertebral Tenderness Extremity: No Tenderness, No Pedal Edema, No Calf Tenderness, No Swelling Extremity: Bilateral: Atraumatic Neurological/Psych: Oriented x3, Normal Speech, Normal Cognition Gait: With Assistance ED Course And Treatment - Laboratory Results Result Diagrams: 06/29/16 20:53 06/29/16 20:53 ECG: Interpreted By Me, Viewed By Me ECG Rhythm: Sinus Rhythm (92), Nonspecific Changes Pulse Ox Interpretation: Normal Disposition Discussed With DrRobyn: Quin Barry Comment: accepted the pt on his service and took over the care at 9:39PM Doctor Will See Patient In The: Hospital Counseled Patient/Family Regarding: Studies Performed, Diagnosis - Disposition Disposition: HOSPITALIZED Disposition Time: 21:14 Condition: FAIR - POA Present On Arrival: Poor Glycemic Control - Clinical Impression Clinical Impression: Ascites, Dyspnea, Shortness of breath, ESRD (end stage renal disease) on dialysis, CHF (congestive heart failure) - Scribe Statement The provider has reviewed the documentation as recorded by the Aliciaibmarcial Noriega Provider Scribe Attestation: All medical record entries made by the Scribe were at my direction and personally dictated by me. I have reviewed the chart and agree that the record accurately reflects my personal performance of the history, physical exam, medical decision making, and the department course for this patient. I have also personally directed, reviewed, and agree with the discharge instructions and disposition. Decision To Admit - Pt Status Changed To: Hospital Disposition Of: Inpatient - Admit Certification Admit to Inpatient:: After my assessment, the patient will require hospitalization for at least two midnights. This is because of the severity of symptoms shown, intensity of services needed, and/or the medical risk in this patient being treated as an outpatient. - InPatient: Physician Admission Certification:: After my assessment, the patient will require hospitalization for at least two midnights. This is because of the severity of symptoms shown, intensity of services needed, and/or the medical risk in this patient being treated as an outpatient. - . Bed Request Type: Telemetry Admitting Physician: Quin Barry Patient Diagnosis: Ascites, Dyspnea, Shortness of breath, ESRD (end stage renal disease) on dialysis
[2016-06-30] MEDS: Albuterol-Ipratrop 3 mg / 0.5 (3 ml) UD INH SCH ×4 (03:24→19:39)
[2016-06-30] MEDS: (Novolog) Insulin Aspart, Recombinant 100 u/ml 10 ml vial SC SCH ×5 (07:43→22:00)
--- NOTE | 2016-06-30 09:40 | CP.PCM.HP ---
History of Present Illness - History of Present Illness History of Present Illness: Patient presented to ED with complaint of abdominal distention/ascites for a few days. Patient has history of ESRD on HD, admits she missed her dialysis today. Patient states she typically gets a paracentesis every 2 weeks. She denies chest pain, fever, vomiting/diarrhea. Present on Admission - Present on Admission Any Indicators Present on Admission: No Past Patient History - Infectious Disease Hx of Infectious Diseases: None - Past Medical History & Family History Past Medical History?: Yes - Past Social History Smoking Status: Former Smoker - CARDIAC Hx Cardia Arrhythmia: Yes Hx Congestive Heart Failure: Yes Hx Hypercholesterolemia: Yes Hx Hypertension: Yes Hx Pacemaker: Yes (LEFT CHEST WALL) - PULMONARY Hx Asthma: Yes Hx Chronic Obstructive Pulmonary Disease (COPD): Yes - NEUROLOGICAL Hx Neurological Disorder: No - HEENT Hx HEENT Problems: Yes (SEE COMMENT) - RENAL Hx Chronic Kidney Disease: Yes Hx Kidney Stones: Yes - ENDOCRINE/METABOLIC Hx Endocrine Disorders: Yes Hx Diabetes Mellitus Type 2: Yes - HEMATOLOGICAL/ONCOLOGICAL Hx Anemia: Yes - INTEGUMENTARY Hx Dermatological Problems: No Other/Comment: herpes zoster - MUSCULOSKELETAL/RHEUMATOLOGICAL Hx Falls: No Hx Fractures: Yes - GASTROINTESTINAL Hx Diverticulitis: Yes - GENITOURINARY/GYNECOLOGICAL Hx Genitourinary Disorders: No - PSYCHIATRIC Hx Substance Use: No - SURGICAL HISTORY Hx Surgeries: Yes (SEE COMMENT) Hx Arteriovenous Shunt: Yes (LEFT ARM AV SHUNT) Other/Comment: pacemaker 2013, no additional information given by family and patient - ANESTHESIA Hx Anesthesia: Yes Hx Anesthesia Reactions: No (Denies) Hx Malignant Hyperthermia: No Meds Allergies/Adverse Reactions: Allergies Allergy/AdvReac Type Severity Reaction Status Date / Time oxycodone AdvReac Severe CONFUSION Verified 09/26/16 04:50 ferumoxides AdvReac REDNESS Verified 09/26/16 04:50 iron AdvReac REDNESS Verified 09/26/16 04:50 sodium ferric gluconate AdvReac REDNESS Verified 09/26/16 04:50 complex [From Ferrlecit] sucrose [From Ferrlecit] AdvReac REDNESS Verified 09/26/16 04:50 Physical Exam - Head Exam Head Exam: ATRAUMATIC, NORMAL INSPECTION, NORMOCEPHALIC - Eye Exam Eye Exam: EOMI, Normal appearance, PERRL Pupil Exam: NORMAL ACCOMODATION, PERRL - ENT Exam ENT Exam: Mucous Membranes Moist, Normal Exam - Neck Exam Neck exam: Positive for: Normal Inspection - Respiratory Exam Respiratory Exam: Decreased Breath Sounds - Cardiovascular Exam Cardiovascular Exam: REGULAR RHYTHM, +S1, +S2 - GI/Abdominal Exam GI & Abdominal Exam: Diminished Bowel Sounds, Soft - Rectal Exam Rectal Exam: Deferred Results - Vital Signs Recent Vital Signs: Last Vital Signs Temp 97.7 F 06/30/16 07:00 Pulse 74 06/30/16 07:00 Resp 20 06/30/16 07:00 BP 94/58 L 06/30/16 07:00 Pulse Ox 96 06/30/16 07:00 - Labs Result Diagrams: 06/29/16 20:53 06/29/16 20:53 Labs: Laboratory Results - last 24 hr 06/30/16 06:36 POC Glucose (mg/dL) 133 H Assessment & Plan (1) Abdominal pain Status: Acute (2) Abdominal wall pain Status: Acute (3) Acute on chronic systolic congestive heart failure Status: Acute Priority: Medium (4) Anasarca Status: Acute (5) Ascites Status: Acute Priority: Medium (6) Ascites, malignant Status: Acute (7) Bronchitis, acute Status: Acute (8) CAD (coronary artery disease) Status: Acute (9) CHF (congestive heart failure) Status: Acute Priority: Low (10) COPD (chronic obstructive pulmonary disease) Status: Acute (11) Chest pain Status: Acute (12) Cirrhosis Status: Acute (13) Congestive heart failure with cardiomyopathy Status: Acute Priority: Medium (14) Contusion of foot, left Status: Acute (15) Deep vein thrombosis (DVT) Status: Acute (16) Dialysis patient Status: Acute (17) Diarrhea Status: Acute (18) Diarrhea Status: Acute (19) Dyspnea Status: Acute (20) Dyspnea Status: Acute (21) ESRD (end stage renal disease) Status: Acute (22) ESRD needing dialysis Status: Acute (23) Fluid overload Status: Acute (24) Foot pain Status: Acute (25) HLD (hyperlipidemia) Status: Acute (26) Hepatorenal syndrome Status: Acute (27) Herpes zoster Status: Acute (28) Humerus fracture Status: Acute (29) Hyperkalemia Status: Acute (30) Hypoglycemia Status: Acute Priority: Low (31) Incarcerated umbilical hernia Status: Acute (32) Increased ammonia level Status: Acute (33) Ischemic cardiomyopathy Status: Acute (34) Knee contusion Status: Acute (35) Lethargy Status: Acute (36) Liver disease Status: Acute (37) Nausea Status: Acute (38) Other ascites Status: Acute (39) Patient left without being seen Status: Acute (40) Poorly controlled ascites Status: Acute (41) Pre-operative cardiovascular examination, LVEF < 35% Status: Acute (42) Prophylactic measure Status: Acute (43) Pulmonary HTN Status: Acute (44) Renal failure Status: Acute (45) Renal insufficiency Status: Acute (46) Shortness of breath Status: Acute (47) Small bowel obstruction Status: Acute (48) Upper respiratory infection Status: Acute (49) Ventral hernia Status: Acute (50) Vomiting Status: Acute (51) Wrist contusion Status: Acute (52) Chronic congestive heart failure Status: Chronic (53) Chronic renal disease Status: Chronic Priority: Medium (54) Cirrhosis of liver with ascites Status: Chronic Priority: High (55) Diabetes mellitus Status: Chronic (56) ESRD (end stage renal disease) on dialysis Status: Chronic (57) End stage renal disease Status: Chronic Priority: Medium (58) Hypertension Status: Chronic (59) Liver failure Status: Chronic Priority: Medium (60) Pacemaker Status: Chronic (61) Pelvic fracture Status: Chronic (62) Type II diabetes mellitus Status: Chronic Priority: Medium (63) Uncontrolled diabetes mellitus Status: Chronic - Assessment and Plan (Free Text) Plan: consult with capacity management specialist schedule Dialysis
[2016-06-30] MEDS: Pantoprazole 40 mg EC Tab PO SCH (10:25)
--- NOTE | 2016-06-30 10:53 | RAD ---
HISTORY: BED 3 ABD DISTENTION/MISSED DIALYSIS . Portable semi erect study 21:04. COMPARISON: 06/15/2016. FINDINGS: LUNGS: No active pulmonary disease. PLEURA: No significant pleural effusion identified, no pneumothorax apparent. CARDIOVASCULAR: Cardiomegaly. No evidence of acute, significant cardiovascular disease. Position/ configuration of pacemaker Satisfactory. OSSEOUS STRUCTURES: No significant abnormalities. VISUALIZED UPPER ABDOMEN: Normal. OTHER FINDINGS: None. IMPRESSION: No active disease. No significant interval change compared to the prior examination(s).
--- NOTE | 2016-06-30 14:59 | US ---
Date of Procedure: 06/30/2016 PROCEDURE: Ultrasound-guided paracentesis, CPT 63855 Medications: 8 cc 1% Lidocaine HISTORY: Ascites, abdominal pain, cirrhosis TECHNIQUE: Following informed consent , the patient was placed supine on the stretcher and the site was marked. A limited abdominal ultrasound was performed that showed a large amount of intra-abdominal fluid. Procedural time out was called and the Pt's abdomen was marked and prepped and draped in the usual sterile fashion. Ultrasound-guided large volume paracentesis performed. A total of 3.7 liters of straw colored fluid was removed without complication. IMPRESSION: Ultrasound-guided large volume paracentesis.
--- NOTE | 2016-06-30 17:07 | CARD ---
APPROVED REPORT EKG Measurement Heart [id number] CT 110P71 [id number] <Conclusion> Sinus rhythm with short CT Nonspecific T wave abnormality Prolonged QT Abnormal ECG
[2016-07-01 01:40] VITALS: RESP 20
[2016-07-01] MEDS: Albuterol-Ipratrop 3 mg / 0.5 (3 ml) UD INH SCH ×2 (01:50→08:42)
[2016-07-01] MEDS: (Novolog) Insulin Aspart, Recombinant 100 u/ml 10 ml vial SC SCH (07:47)
[2016-07-01 07:49] VITALS: BP 96/56; PULSE 80; TEMP 97.8; O2SAT 95
[2016-07-01] MEDS: Pantoprazole 40 mg EC Tab PO SCH (09:33)
--- NOTE | 2016-07-01 14:22 | CP.PCM.PN ---
Subjective - Date & Time of Evaluation Date of Evaluation: 07/01/16 Time of Evaluation: 13:00 - Subjective Subjective: clinically same Objective - Vital Signs/Intake and Output Vital Signs (last 24 hours): Temp Pulse Resp BP Pulse Ox 97.8 F 80 20 96/56 L 95 07/01/16 07:00 07/01/16 07:00 07/01/16 07:00 07/01/16 07:00 07/01/16 07:00 - Labs Labs: PT 12.9 SECONDS (9.7-12.2) H 06/29/16 20:53 INR 1.2 06/29/16 20:53 APTT 35 SECONDS (21-34) H 06/29/16 20:53 - Constitutional Appears: Well - Head Exam Head Exam: ATRAUMATIC, NORMAL INSPECTION, NORMOCEPHALIC - Eye Exam Eye Exam: EOMI, Normal appearance, PERRL Pupil Exam: NORMAL ACCOMODATION, PERRL - ENT Exam ENT Exam: Mucous Membranes Moist, Normal Exam - Neck Exam Neck Exam: Full ROM, Normal Inspection. absent: Lymphadenopathy - Respiratory Exam Respiratory Exam: Decreased Breath Sounds - Cardiovascular Exam Cardiovascular Exam: REGULAR RHYTHM, +S1, +S2 - GI/Abdominal Exam GI & Abdominal Exam: Soft, Diminished Bowel Sounds - Rectal Exam Rectal Exam: Deferred Assessment and Plan (1) Abdominal pain Status: Acute (2) Abdominal wall pain Status: Acute (3) Acute on chronic systolic congestive heart failure Status: Acute (4) Anasarca Status: Acute (5) Ascites Status: Acute (6) Ascites, malignant Status: Acute (7) Bronchitis Status: Acute (8) Bronchitis, acute Status: Acute (9) CAD (coronary artery disease) Status: Acute (10) CHF (congestive heart failure) Status: Acute (11) COPD (chronic obstructive pulmonary disease) Status: Acute (12) Chest pain Status: Acute (13) Chest pain Status: Acute (14) Cirrhosis Status: Acute (15) Congestive heart failure with cardiomyopathy Status: Acute (16) Contusion of foot, left Status: Acute (17) Deep vein thrombosis (DVT) Status: Acute (18) Dialysis patient Status: Acute (19) Diarrhea Status: Acute (20) Diarrhea Status: Acute (21) Dyspnea Status: Acute (22) Dyspnea Status: Acute (23) ESRD (end stage renal disease) Status: Acute (24) ESRD needing dialysis Status: Acute (25) Fluid overload Status: Acute (26) Foot pain Status: Acute (27) HLD (hyperlipidemia) Status: Acute (28) Hepatorenal syndrome Status: Acute (29) Herpes zoster Status: Acute (30) Humerus fracture Status: Acute (31) Hyperkalemia Status: Acute (32) Hypoglycemia Status: Acute (33) Incarcerated umbilical hernia Status: Acute (34) Increased ammonia level Status: Acute (35) Ischemic cardiomyopathy Status: Acute (36) Knee contusion Status: Acute (37) Lethargy Status: Acute (38) Liver disease Status: Acute (39) Nausea Status: Acute (40) Other ascites Status: Acute (41) Patient left without being seen Status: Acute (42) Poorly controlled ascites Status: Acute (43) Pre-operative cardiovascular examination, LVEF < 35% Status: Acute (44) Prophylactic measure Status: Acute (45) Pulmonary HTN Status: Acute (46) Renal failure Status: Acute (47) Renal insufficiency Status: Acute (48) Shortness of breath Status: Acute (49) Small bowel obstruction Status: Acute (50) Upper respiratory infection Status: Acute (51) Ventral hernia Status: Acute (52) Vomiting Status: Acute (53) Wrist contusion Status: Acute (54) Chronic congestive heart failure Status: Chronic (55) Chronic renal disease Status: Chronic (56) Cirrhosis of liver with ascites Status: Chronic (57) Diabetes mellitus Status: Chronic (58) ESRD (end stage renal disease) on dialysis Status: Chronic (59) End stage renal disease Status: Chronic (60) Hypertension Status: Chronic (61) Liver failure Status: Chronic (62) Pacemaker Status: Chronic (63) Pelvic fracture Status: Chronic (64) Type II diabetes mellitus Status: Chronic (65) Uncontrolled diabetes mellitus Status: Chronic - Assessment and Plan (Free Text) 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
--- NOTE | 2016-07-01 17:22 | CP.PCM.PN ---
Subjective - Date & Time of Evaluation Date of Evaluation: 07/01/16 Time of Evaluation: 11:00 - Subjective Subjective: Awake, alert, NAD. Objective - Vital Signs/Intake and Output Vital Signs (last 24 hours): Temp Pulse Resp BP Pulse Ox 97.8 F 80 20 96/56 L 95 07/01/16 07:00 07/01/16 07:00 07/01/16 07:00 07/01/16 07:00 07/01/16 07:00 - Labs Labs: PT 12.9 SECONDS (9.7-12.2) H 06/29/16 20:53 INR 1.2 06/29/16 20:53 APTT 35 SECONDS (21-34) H 06/29/16 20:53 Assessment and Plan - Assessment and Plan (Free Text) Assessment: Patient is seen and examined. Alert, orientedx3, denies sob or chest pains. Had HD done yesterday, feeling better today. D/W DR Fernando Barry, discharged home today on home meds. Advised to continue with HD regularly and follow up with PMD in 1 week
== END 2016-07-01 13:02 | disposition home or self-care (01) | DRG 947 ==
LOC: C.ER 20:17 → C.6T 21:44
PROVIDERS: ADMIT Internal Medicine Nephrology; ATTEND Internal Medicine Nephrology
PROC: 0W9G3ZZ Drainage of Peritoneal Cavity, Percutaneous Approach (ICD-10-PCS; principal; 2016-06-30)
PROC: BW40ZZZ Ultrasonography of Abdomen (ICD-10-PCS; 2016-06-30)
PROC: 5A1D00Z (ICD-10-PCS; 2016-06-30)
DX: R18.8 Other ascites (principal); N18.6 End stage renal disease; I13.2 Hypertensive heart and chronic kidney disease with heart failure and with stage 5 chronic kidney disease, or end stage renal disease; E11.22 Type 2 diabetes mellitus with diabetic chronic kidney disease; J44.9 Chronic obstructive pulmonary disease, unspecified; I25.10 Atherosclerotic heart disease of native coronary artery without angina pectoris; J45.909 Unspecified asthma, uncomplicated; I50.9 Heart failure, unspecified; E78.00 Pure hypercholesterolemia, unspecified; Z95.0 Presence of cardiac pacemaker; Z91.15 Patient's noncompliance with renal dialysis; Z79.4 Long term (current) use of insulin; Z87.891 Personal history of nicotine dependence

== ENCOUNTER 2016-07-21 11:53 | Emergency (ER) | payer MEDICARE, OTHER ==
[2016-07-21 11:54] VITALS: PULSE 68; BMI 23.2
--- NOTE | 2016-07-21 12:55 | C.PDOC ---
History Of Present Illness 76 y/o female sent to ED for (+) DVT study done today. Pt developed left leg pain and swelling 3 days ago after being discharged from hospital which led to US. Pt denies chest pain, SOB or any other complaints. Time Seen by Provider: 07/21/16 12:50 Chief Complaint (Nursing): Abdominal Pain Past Medical History Vital Signs: Last Vital Signs Temp 97.3 F L 07/21/16 12:08 Pulse 101 H 07/21/16 12:08 Resp 13 07/21/16 12:08 BP 103/57 L 07/21/16 12:08 Pulse Ox 95 07/21/16 12:54 - Medical History PMH: Anemia, Asthma, CAD, Cardia Arrhythmia, CHF, COPD, Diabetes, Diverticulitis , Fractures, Hiatal Hernia, HTN, Hypercholesterolemia, Kidney Stones, End Stage Renal Disease, Chronic Kidney Disease Surgical History: Pacemaker (LEFT CHEST WALL) - [facility] Procedures BYPASS LEFT BRACHIAL ARTERY TO UPPER ARM VEIN, OPEN APPROACH (12/14/14) C.A.T. SCAN OF THORAX (08/16/13) DIALYSIS ARTERIOVENOSTOM (09/14/14) DRAINAGE OF PERITONEAL CAVITY WITH DRAIN DEV, PERC APPROACH (02/24/16) DRAINAGE OF PERITONEAL CAVITY, PERCUTANEOUS APPROACH (06/29/16) DX ULTRASOUND-ABDOMEN (10/25/14) HEMODIALYSIS (11/16/14) MEASUREMENT OF CARDIAC DEFIBRILLATOR, EXTERNAL APPROACH (12/14/14) PACKED CELL TRANSFUSION (08/16/13) PERCUTANEOUS ABDOMINAL DRAINAGE (11/16/14) PERFORMANCE OF URINARY FILTRATION, MULTIPLE (06/15/16) PERFORMANCE OF URINARY FILTRATION, SINGLE (06/29/16) REPOSITION LEFT BASILIC VEIN, OPEN APPROACH (05/30/15) SUPPLEMENT ABDOMINAL WALL WITH SYNTH SUB, OPEN APPROACH (03/17/15) THORACENTESIS (08/16/13) ULTRASONOGRAPHY OF ABDOMEN (06/29/16) VENOUS CATHETERIZATION FOR RENAL DIALYSIS (03/01/14) Family History: States: Diabetes - Social History Hx Tobacco Use: No Hx Alcohol Use: No Hx Substance Use: No - Immunization History Hx Tetanus Toxoid Vaccination: No Hx Influenza Vaccination: No (pt declines as per son) Hx Pneumococcal Vaccination: No ED Course And Treatment O2 Sat by Pulse Oximetry: 95
--- NOTE | 2016-07-21 13:43 | C.PDOC ---
History Of Present Illness 76 y/o female presents to the ED with complains of recurrent abdominal distention. Pt receives paracentesis every couple weeks. No SOB, fever, chills, vomiting, diarrhea or any other complaints at this time. Time Seen by Provider: 07/21/16 12:50 Chief Complaint (Nursing): Abdominal Pain History Per: Patient History/Exam Limitations: no limitations Onset/Duration Of Symptoms: Days Current Symptoms Are (Timing): Still Present Severity: Moderate Recent travel outside of the [place]: No Past Medical History Reviewed: Historical Data, Nursing Documentation, Vital Signs Vital Signs: Last Vital Signs Temp 98 F 07/21/16 15:14 Pulse 94 H 07/21/16 15:14 Resp 20 07/21/16 15:14 BP 97/63 L 07/21/16 15:14 Pulse Ox 95 07/21/16 17:01 - Medical History PMH: Anemia, Asthma, CAD, Cardia Arrhythmia, CHF, COPD, Diabetes, Diverticulitis , Fractures, Hiatal Hernia, HTN, Hypercholesterolemia, Kidney Stones, End Stage Renal Disease, Chronic Kidney Disease Surgical History: Pacemaker (LEFT CHEST WALL) - [facility] Procedures BYPASS LEFT BRACHIAL ARTERY TO UPPER ARM VEIN, OPEN APPROACH (12/14/14) C.A.T. SCAN OF THORAX (08/16/13) DIALYSIS ARTERIOVENOSTOM (09/14/14) DRAINAGE OF PERITONEAL CAVITY WITH DRAIN DEV, PERC APPROACH (02/24/16) DRAINAGE OF PERITONEAL CAVITY, PERCUTANEOUS APPROACH (06/29/16) DX ULTRASOUND-ABDOMEN (10/25/14) HEMODIALYSIS (11/16/14) MEASUREMENT OF CARDIAC DEFIBRILLATOR, EXTERNAL APPROACH (12/14/14) PACKED CELL TRANSFUSION (08/16/13) PERCUTANEOUS ABDOMINAL DRAINAGE (11/16/14) PERFORMANCE OF URINARY FILTRATION, MULTIPLE (06/15/16) PERFORMANCE OF URINARY FILTRATION, SINGLE (06/29/16) REPOSITION LEFT BASILIC VEIN, OPEN APPROACH (05/30/15) SUPPLEMENT ABDOMINAL WALL WITH SYNTH SUB, OPEN APPROACH (03/17/15) THORACENTESIS (08/16/13) ULTRASONOGRAPHY OF ABDOMEN (06/29/16) VENOUS CATHETERIZATION FOR RENAL DIALYSIS (03/01/14) Family History: States: Diabetes - Social History Hx Tobacco Use: No Hx Alcohol Use: No Hx Substance Use: No - Immunization History Hx Tetanus Toxoid Vaccination: No Hx Influenza Vaccination: No (pt declines as per son) Hx Pneumococcal Vaccination: No Review Of Systems Except As Marked, All Systems Reviewed And Found Negative. Constitutional: Negative for: Fever, Chills Cardiovascular: Negative for: Chest Pain Respiratory: Negative for: Shortness of Breath Gastrointestinal: Positive for: Other (abdominal distention). Negative for: Vomiting, Diarrhea Physical Exam - Physical Exam Appears: Non-toxic, No Acute Distress Skin: Warm, Dry, No Rash Head: Atraumatic, Normacephalic Chest: Symmetrical Cardiovascular: Rhythm Regular, No Murmur Respiratory: Normal Breath Sounds, No Rales, No Rhonchi, No Wheezing Gastrointestinal/Abdominal: No Tenderness, Distention, Ascites Extremity: Normal ROM Extremity: Bilateral: Atraumatic Neurological/Psych: Oriented x3, Normal Speech ED Course And Treatment - Laboratory Results Result Diagrams: 07/21/16 13:46 07/21/16 13:46 O2 Sat by Pulse Oximetry: 95 (room air) Pulse Ox Interpretation: Normal Medical Decision Making Medical Decision Making: This patient is choosing to leave against medical advice. I have personally explained to the patient that choosing to do so may result in permanent bodily harm or . I have discussed at great length that without further evaluation and monitoring there may be unforeseen circumstances and/or deterioration causing permanent bodily harm or as a result of their choice. The patient verbalized these risks back to me in laymans terms. The patient is alert, oriented, and shows the mental capacity to make clear decisions regarding the patients health care at this time. The patient continues to wish to leave against medical advice. Disposition - Disposition Disposition: AGAINST MEDICAL ADVICE Disposition Time: 15:49 Condition: STABLE - Clinical Impression Clinical Impression: Ascites - Scribe Statement The provider has reviewed the documentation as recorded by the Juliette Maddox Provider Attestation: All medical record entries made by the Juliette were at my direction and personally dictated by me. I have reviewed the chart and agree that the record accurately reflects my personal performance of the history, physical exam, medical decision making, and the department course for this patient. I have also personally directed, reviewed, and agree with the discharge instructions and disposition.
[2016-07-21 13:50] LABS: BASO # 0.1 K/uL (0.0-0.2); BASO % 1.4 % (0.0-2.0); EOS # 0.2 K/uL (0.0-0.7); EOS % 3.5 % (0.0-4.0); HEMATOCRIT 36.8 % (34.0-47.0); LYMPH # 0.9 K/uL (1.0-4.3); LYMPH % 16.2 % (20.0-40.0); MEAN CELL VOLUME 91.3 fL (81.0-99.0); MEAN CORPUSCULAR HEMOGLOBIN 29.6 pg (27.0-31.0); MEAN CORPUSCULAR HGB CONC 32.4 g/dL (33.0-37.0); MEAN PLATELET VOLUME 9.9 fL (7.2-11.7); MONO # 0.6 K/uL (0.0-0.8); MONO % 10.4 % (0.0-10.0); RED CELL DISTRIBUTION WIDTH 14.3 % (11.5-14.5); WHITE BLOOD COUNT 5.8 K/uL (4.8-10.8)
[2016-07-21 13:51] VITALS: PULSE 94; TEMP 98
[2016-07-21 14:32] LABS: INR 1.2
[2016-07-21 15:06] LABS: POTASSIUM 4.9 mmol/L (3.6-5.2)
[2016-07-21 15:09] LABS: ALB/GLOB RATIO 0.8 (1.0-2.1); BILIRUBIN,TOTAL 0.7 mg/dL (0.2-1.3); TOTAL PROTEIN 7.3 g/dL (6.3-8.3)
[2016-07-21 15:14] VITALS: BP 97/63; RESP 20
[2016-07-21 17:01] VITALS: O2SAT 95
[2016-07-21] MEDS ORDERED: GlipiZIDE 2.5 mg Tab PO SCH ×2 (18:00)
[2016-07-22] MEDS ORDERED: Pantoprazole 40 mg EC Tab PO SCH (10:00)
[2016-07-22] MEDS ORDERED: FENOFIBRATE MICRONIZED PO SCH ×2 (10:00)
--- NOTE | 2016-07-25 14:05 | US ---
Date of Procedure: 07/21/2016 PROCEDURE: Ultrasound-guided paracentesis, CPT 64016 Medications: 8cc 1% Lidocaine HISTORY: Ascites, abdominal pain, cirrhosis TECHNIQUE: Following informed consent , the patient was placed supine on the stretcher and the site was marked. A limited abdominal ultrasound was performed that showed a large amount of intra-abdominal fluid. Procedural time out was called and the Pt's abdomen was marked and prepped and draped in the usual sterile fashion. Ultrasound-guided large volume paracentesis performed. A total of 4 liters of straw colored fluid was removed without complication. IMPRESSION: Ultrasound-guided large volume paracentesis.
== END 2016-07-21 15:49 | disposition left against medical advice (07) ==
LOC: C.ER 11:53 → INTOOBSV 13:39 → UNDOADMOB 13:39 → C.9E 13:39 → C.3T 15:00 → C.9E 15:00 → C.ER 15:49 → UNDODISOB 16:04
DX: R18.8 Other ascites (principal); I25.10 Atherosclerotic heart disease of native coronary artery without angina pectoris; E11.22 Type 2 diabetes mellitus with diabetic chronic kidney disease; I13.2 Hypertensive heart and chronic kidney disease with heart failure and with stage 5 chronic kidney disease, or end stage renal disease; I50.9 Heart failure, unspecified; N18.6 End stage renal disease; Z99.2 Dependence on renal dialysis; Z95.828 Presence of other vascular implants and grafts; I49.9 Cardiac arrhythmia, unspecified; Z95.810 Presence of automatic (implantable) cardiac defibrillator; J45.909 Unspecified asthma, uncomplicated; E78.00 Pure hypercholesterolemia, unspecified

== ENCOUNTER 2016-08-03 12:29 | Inpatient (IN) | payer MEDICARE, OTHER ==
[2016-08-03 12:30] VITALS: PULSE 68; BMI 23.2
--- NOTE | 2016-08-03 13:40 | C.PDOC ---
History Of Present Illness 76 y/o female with Hx of ESRD presents to ED with complaints of Abdomen distention, general discomfort and requests fluid removal. Patient was previously seen at ED on 07/21 for Ascites but left AMA. Patient denies fever, N/ V/D or any other complaints at this time. CO ABD DISTENTION. REQUESTING FLUID REMOVAL. +GEN DISCOMFORT. NO FEVER, NV. + ESRD. LEFT AMA 07/21 DX ASCITES EXAM MILD DIST ABD +DISTENTION ASCITES SOFT NO R/G Time Seen by Provider: 08/03/16 13:38 Chief Complaint (Nursing): Abdominal Pain History Per: Patient History/Exam Limitations: no limitations Onset/Duration Of Symptoms: Days Current Symptoms Are (Timing): Still Present Location Of Pain/Discomfort: Diffuse Associated Symptoms: denies: Fever, Nausea, Vomiting Past Medical History Reviewed: Historical Data, Nursing Documentation, Vital Signs Vital Signs: Last Vital Signs Temp 97.4 F L 08/03/16 12:57 Pulse 79 08/03/16 12:57 Resp 20 08/03/16 12:57 BP 90/54 L 08/03/16 12:57 Pulse Ox 97 08/03/16 14:35 - Medical History PMH: Anemia, Asthma, CAD, Cardia Arrhythmia, CHF, COPD, Diabetes, Diverticulitis , Fractures, Hiatal Hernia, HTN, Hypercholesterolemia, Kidney Stones, End Stage Renal Disease, Chronic Kidney Disease Surgical History: Pacemaker (LEFT CHEST WALL) - [facility] Procedures BYPASS LEFT BRACHIAL ARTERY TO UPPER ARM VEIN, OPEN APPROACH (12/14/14) C.A.T. SCAN OF THORAX (08/16/13) DIALYSIS ARTERIOVENOSTOM (09/14/14) DRAINAGE OF PERITONEAL CAVITY WITH DRAIN DEV, PERC APPROACH (02/24/16) DRAINAGE OF PERITONEAL CAVITY, PERCUTANEOUS APPROACH (06/29/16) DX ULTRASOUND-ABDOMEN (10/25/14) HEMODIALYSIS (11/16/14) MEASUREMENT OF CARDIAC DEFIBRILLATOR, EXTERNAL APPROACH (12/14/14) PACKED CELL TRANSFUSION (08/16/13) PERCUTANEOUS ABDOMINAL DRAINAGE (11/16/14) PERFORMANCE OF URINARY FILTRATION, MULTIPLE (06/15/16) PERFORMANCE OF URINARY FILTRATION, SINGLE (06/29/16) REPOSITION LEFT BASILIC VEIN, OPEN APPROACH (05/30/15) SUPPLEMENT ABDOMINAL WALL WITH SYNTH SUB, OPEN APPROACH (03/17/15) THORACENTESIS (08/16/13) ULTRASONOGRAPHY OF ABDOMEN (06/29/16) VENOUS CATHETERIZATION FOR RENAL DIALYSIS (03/01/14) Family History: States: Diabetes - Social History Hx Tobacco Use: No Hx Alcohol Use: No Hx Substance Use: No - Immunization History Hx Tetanus Toxoid Vaccination: No Hx Influenza Vaccination: No (pt declines as per son) Hx Pneumococcal Vaccination: No Review Of Systems Except As Marked, All Systems Reviewed And Found Negative. Constitutional: Negative for: Fever, Chills Cardiovascular: Negative for: Chest Pain Respiratory: Negative for: Shortness of Breath Gastrointestinal: Negative for: Nausea, Vomiting, Diarrhea Neurological: Negative for: Weakness Physical Exam - Physical Exam Appears: Other (Mild Distress) Skin: Normal Color, Warm Head: Atraumatic, Normacephalic Oral Mucosa: Moist Neck: Normal ROM Cardiovascular: Rhythm Regular Respiratory: No Rales, No Rhonchi, No Wheezing Gastrointestinal/Abdominal: Distention, No Guarding, No Rebound Extremity: Normal ROM, Capillary Refill (<2 seconds) Neurological/Psych: Oriented x3, Normal Speech, Normal Cognition ED Course And Treatment - Laboratory Results Result Diagrams: 08/03/16 14:24 08/03/16 14:24 ECG: Interpreted By Nc ECG Rhythm: Sinus Rhythm ECG Interpretation: Abnormal Interpretation Of ECG: TWI I, II, V4-V6 Rate From EC (bpm) O2 Sat by Pulse Oximetry: 97 (RA) Pulse Ox Interpretation: Normal - Radiology CXR: Interpreted by Nc CXR Interpretation: Yes: Cardiomegaly, Other (PPM; UN[facility] PRIOR) - Physician Consult Information Time Consulting Physician Contacted: 15:12 Physician Contacted: Quin Barry Progress - Data Reviewed Data Reviewed: Lab, Diagnostic imaging, EKG, Old records - Continuity of Care Discussed patient case with:: Patient, PMD Disposition Counseled Patient/Family Regarding: Studies Performed, Diagnosis - Disposition Disposition: HOSPITALIZED Disposition Time: 15:12 Condition: STABLE - POA Present On Arrival: Poor Glycemic Control - Clinical Impression Clinical Impression: ESRD (end stage renal disease), Abdominal pain, Ascites - PA / ROUTE SUPERVISOR / Resident Statement MD/DO has reviewed & agrees with the documentation as recorded. MD/DO has examined the patient and agrees with the treatment plan. - Scribe Statement The provider has reviewed the documentation as recorded by the Juliette Lamb All medical record entries made by the Scribe were at my direction and personally dictated by me. I have reviewed the chart and agree that the record accurately reflects my personal performance of the history, physical exam, medical decision making, and the department course for this patient. I have also personally directed, reviewed, and agree with the discharge instructions and disposition. Decision To Admit - Pt Status Changed To: Hospital Disposition Of: Inpatient - Admit Certification Admit to Inpatient:: After my assessment, the patient will require hospitalization for at least two midnights. This is because of the severity of symptoms shown, intensity of services needed, and/or the medical risk in this patient being treated as an outpatient. - InPatient: Physician Admission Certification:: SEE NOTE - . Bed Request Type: Regular Admitting Physician: Quin Barry Patient Diagnosis: ESRD (end stage renal disease), Abdominal pain, Ascites
--- NOTE | 2016-08-03 14:17 | RAD ---
HISTORY: abd pain COMPARISON: Chest x-ray performed 06/29/16 TECHNIQUE: Chest, one view. FINDINGS: LUNGS: Pulmonary venous congestion. Please note that chest x-ray has limited sensitivity for the detection of pulmonary masses. PLEURA: No significant pleural effusion identified. No definite pneumothorax . CARDIOVASCULAR: Single lead left-sided AICD. Cardiomegaly. Atherosclerotic calcifications. OSSEOUS STRUCTURES: Deformity of the right humerus. Osseous demineralization. Degenerative changes of the spine and shoulders. Acromioclavicular arthropathy. Probable calcific tendonitis, left shoulder. VISUALIZED UPPER ABDOMEN: Unremarkable. OTHER FINDINGS: None. IMPRESSION: Pulmonary venous congestion. Cardiomegaly. Single lead AICD. Additional findings as above.
[2016-08-03 14:30] LABS: BASO # 0.1 K/uL (0.0-0.2); BASO % 1.4 % (0.0-2.0); EOS # 0.2 K/uL (0.0-0.7); EOS % 3.7 % (0.0-4.0); HEMATOCRIT 35.7 % (34.0-47.0); LYMPH % 17.6 % (20.0-40.0); MEAN CELL VOLUME 90.5 fL (81.0-99.0); MEAN CORPUSCULAR HEMOGLOBIN 29.3 pg (27.0-31.0); MEAN CORPUSCULAR HGB CONC 32.3 g/dL (33.0-37.0); MEAN PLATELET VOLUME 9.6 fL (7.2-11.7); MONO # 0.8 K/uL (0.0-0.8); MONO % 13.8 % (0.0-10.0); RED CELL DISTRIBUTION WIDTH 14.2 % (11.5-14.5); WHITE BLOOD COUNT 5.5 K/uL (4.8-10.8)
[2016-08-03 14:39] LABS: INR 1.2
[2016-08-03 14:52] LABS: ALB/GLOB RATIO 0.9 (1.0-2.1); BILIRUBIN,TOTAL 0.7 mg/dL (0.2-1.3); TOTAL PROTEIN 7.1 g/dL (6.3-8.3)
[2016-08-03 14:53] LABS: CALCIUM 7.3 mg/dl (8.6-10.4)
--- NOTE | 2016-08-03 18:35 | CP.PCM.HP ---
History of Present Illness - History of Present Illness History of Present Illness: pt came with h/o esrd on hd h/o htna dn h/o aneima came with fluid overload came for hd with mild sob as pt misses hd galilea same no fever or chills pt non compliance iwht follow up pt comes reg for paracenetsis follow up Past Patient History - Infectious Disease Hx of Infectious Diseases: None - Past Medical History & Family History Past Medical History?: Yes - Past Social History Smoking Status: Former Smoker - CARDIAC Hx Cardia Arrhythmia: Yes Hx Congestive Heart Failure: Yes Hx Hypercholesterolemia: Yes Hx Hypertension: Yes Hx Pacemaker: Yes (LEFT CHEST WALL) - PULMONARY Hx Asthma: Yes Hx Chronic Obstructive Pulmonary Disease (COPD): Yes - NEUROLOGICAL Hx Neurological Disorder: No - HEENT Hx HEENT Problems: Yes (SEE COMMENT) - RENAL Hx Chronic Kidney Disease: Yes Hx Kidney Stones: Yes - ENDOCRINE/METABOLIC Hx Endocrine Disorders: Yes Hx Diabetes Mellitus Type 2: Yes - HEMATOLOGICAL/ONCOLOGICAL Hx Anemia: Yes - INTEGUMENTARY Hx Dermatological Problems: No Other/Comment: herpes zoster - MUSCULOSKELETAL/RHEUMATOLOGICAL Hx Fractures: Yes - GASTROINTESTINAL Hx Diverticulitis: Yes - GENITOURINARY/GYNECOLOGICAL Hx Genitourinary Disorders: No - PSYCHIATRIC Hx Substance Use: No - SURGICAL HISTORY Hx Surgeries: Yes (SEE COMMENT) Hx Arteriovenous Shunt: Yes (LEFT ARM AV SHUNT) Other/Comment: pacemaker 2013, no additional information given by family and patient - ANESTHESIA Hx Anesthesia: Yes Hx Anesthesia Reactions: No (Denies) Hx Malignant Hyperthermia: No Meds Home Medications: Home Medication List Medication Instructions Recorded Confirmed Type DiphenhydrAMINE [Benadryl] 25 mg PO TID PRN #21 cap 08/04/16 Rx Hydrocortisone 1% Cream [Cortizone 1 gm TP BID #1.5 tube 08/04/16 Rx 1% Cream] Allergies/Adverse Reactions: Allergies Allergy/AdvReac Type Severity Reaction Status Date / Time oxycodone AdvReac Severe CONFUSION Verified 06/01/16 13:27 ferumoxides AdvReac REDNESS Verified 06/01/16 13:27 iron AdvReac REDNESS Verified 06/01/16 13:27 sodium ferric gluconate AdvReac REDNESS Verified 06/01/16 13:27 complex [From Ferrlecit] sucrose [From Ferrlecit] AdvReac REDNESS Verified 06/01/16 13:27 Results - Vital Signs Recent Vital Signs: Last Vital Signs Temp 98.3 F 08/03/16 18:02 Pulse 95 H 08/03/16 18:02 Resp 20 08/03/16 18:02 BP 108/61 08/03/16 18:02 Pulse Ox 95 08/03/16 18:02 - Labs Result Diagrams: 08/03/16 14:24 08/03/16 14:24
[2016-08-04] MEDS: (Novolog) Insulin Aspart, Recombinant 100 u/ml 10 ml vial SC SCH ×2 (09:09→12:02)
[2016-08-04] MEDS ORDERED: Pantoprazole 40 mg EC Tab PO SCH (10:00)
--- NOTE | 2016-08-04 10:28 | PCM.SURG1 ---
Surgeon's Initial Post Op Note - Surgeon's Notes Surgeon: Steven Monroy MD Analyzer Sales: NONE Type of Anesthesia: Local Pre-Operative Diagnosis: Ascites Operative Findings: US showed a large amount of ascites Post-Operative Diagnosis: Ascites Operation Performed: US guided paracentesis. Specimen/Specimens Removed: 4700 cc of yellow fluid Estimated Blood Loss: EBL {In ML}: 0 Blood Products Given: N/A Drains Used: No Drains Post-Op Condition: Good Date of Surgery/Procedure: 08/04/16 Time of Surgery/Procedure: 10:10
--- NOTE | 2016-08-04 11:40 | CP.PCM.PN ---
Subjective - Date & Time of Evaluation Date of Evaluation: 08/04/16 Time of Evaluation: 08:50 - Subjective Subjective: PGY2 Medicine Note - Dr. Sanchez Barry's service: Patient seen and examined at bedside this AM. Patient reports abdominal pain and distension. Patient reports pruritus on her shoulders and back for a few days. This has caused excoriations from scratching. Patient denies fever, chills, chest pain, SOB. Patient reports mild coughing with some white phlegm but says this is chronic for her. Objective - Vital Signs/Intake and Output Vital Signs (last 24 hours): Temp Pulse Resp BP Pulse Ox 98.4 F 84 20 105/63 97 08/04/16 08:18 08/04/16 08:18 08/04/16 08:18 08/04/16 08:18 08/04/16 08:18 - Medications Medications: Current Medications Amlodipine Besylate (Norvasc) 10 mg PO DAILY [facility] Carvedilol (Coreg) 3.125 mg PO BID [facility] Fenofibrate (Tricor) 145 mg PO QPM [facility] Furosemide (Lasix) 40 mg PO DAILY [facility] Glipizide (Glucotrol) 10 mg PO BIDCC [facility] Hydralazine HCl (Apresoline) 25 mg PO TID [facility] Insulin Aspart (Novolog) 0 unit SC ACHS [facility] PRN Reason: Protocol Last Admin: 08/04/16 09:09 Dose: Not Given Pantoprazole Sodium (Protonix Ec Tab) 40 mg PO DAILY [facility] Pneumococcal Polyvalent Vaccine (Pneumovax 23 Vaccine) 0.5 ml IM .ONCE ONE Stop: 08/06/16 10:01 Rosuvastatin Calcium (Crestor) 10 mg PO HS [facility] Sevelamer Carbonate (Renvela) 1,600 mg PO BIDCC [facility] Last Admin: 08/04/16 09:08 Dose: 1,600 mg - Labs Labs: PT 13.4 SECONDS (9.7-12.2) H 08/03/16 14:24 INR 1.2 08/03/16 14:24 APTT 32 SECONDS (21-34) 08/03/16 14:24 - Constitutional Appears: Non-toxic, No Acute Distress - Head Exam Head Exam: NORMAL INSPECTION - Eye Exam Eye Exam: EOMI - ENT Exam ENT Exam: Mucous Membranes Moist - Respiratory Exam Respiratory Exam: Clear to Ausculation Bilateral, NORMAL BREATHING PATTERN. absent: Rales, Rhonchi, Wheezes - Cardiovascular Exam Cardiovascular Exam: REGULAR RHYTHM, +S1, +S2. absent: Gallop, Rubs, Murmur - GI/Abdominal Exam GI & Abdominal Exam: Distended, Soft, Tenderness, Normal Bowel Sounds - Extremities Exam Extremities Exam: absent: Pedal Edema - Neurological Exam Neurological Exam: Alert, Oriented x3 - Psychiatric Exam Psychiatric exam: Normal Affect, Normal Mood - Skin Skin Exam: Abrasion, Dry, Normal Color, Rash, Warm Assessment and Plan - Assessment and Plan (Free Text) Assessment: Ascites Paracentesis by Dr. Monroy - help appreciated 4700cc of fluid drained D/C home ESRD Dialysis TTS Patient reports keeping up with going to every dialysis appointment Pruritus Script given for benadryl 25mg PO TID PRN pruritus and hydrocortisone 1% cream apply to affected area BID x1 week HTN Continue home meds DM Continue home meds Hyperlipidemia Continue home meds Prophylaxis Protonix 40mg PO daily
[2016-08-04] MEDS ORDERED: Hydrocortisone 1% Cream (30 GM) TOP SCH (11:45)
--- NOTE | 2016-08-04 12:44 | PCM.HF ---
Heart Failure Core Measure - Heart Failure Ejection Fraction: Less Than 40 % (EF 17%) JESSICA Inhibitor Prescribed: No Contraindication/Reason for not providing: ESRD Beta-Irma Prescribed: Carvedilol Angiotensin II Receptor Irma Prescribed: No Contraindication/Reason for not providing: ESRD AnticoagulationTherapy for Atrial Fibrillation/Atrialflutter: No Contraindication/Reason for not providing: no afib Aldosterone Antagonist Prescribed: No Contraindication/Reason for not providing: low BP Hydralazine Nitrate Prescribed: Yes Implantable Cardioverter Defibrillator Therapy: Yes Contraindication/Reason for not providing: pacemaker left chest Cardiac Resynchronization Therapy Prescribed: No Contraindication/Reason for not providing: on pacemaker - Follow up Will be discharged to: Home (with son) Follow Up Date (must be within 7 days from discharge): 08/08/16 Follow Up Time: 09:00
--- NOTE | 2016-08-04 16:53 | CP.PCM.PN ---
Subjective - Date & Time of Evaluation Date of Evaluation: 08/04/16 Time of Evaluation: 09:00 - Subjective Subjective: clinically same Objective - Vital Signs/Intake and Output Vital Signs (last 24 hours): Temp Pulse Resp BP Pulse Ox 98.4 F 84 20 130/77 97 08/04/16 08:18 08/04/16 08:18 08/04/16 08:18 08/04/16 12:00 08/04/16 08:18 Intake and Output: 08/04/16 08/04/16 06:59 18:59 Intake Total 350 Output Total 1 Balance 349 - Medications Medications: Current Medications Amlodipine Besylate (Norvasc) 10 mg PO DAILY [facility] Last Admin: 08/04/16 12:08 Dose: 10 mg Carvedilol (Coreg) 3.125 mg PO BID [facility] Last Admin: 08/04/16 12:00 Dose: 3.125 mg Diphenhydramine HCl (Benadryl) 25 mg PO Q8 [facility] Last Admin: 08/04/16 14:22 Dose: Not Given Fenofibrate (Tricor) 145 mg PO QPM [facility] Furosemide (Lasix) 40 mg PO DAILY [facility] Last Admin: 08/04/16 12:00 Dose: 40 mg Glipizide (Glucotrol) 10 mg PO BIDCC [facility] Last Admin: 08/04/16 12:00 Dose: 10 mg Hydralazine HCl (Apresoline) 25 mg PO TID [facility] Last Admin: 08/04/16 14:22 Dose: Not Given Hydrocortisone (Cortizone 1% Cream) 1 gm TOP BID [facility] Last Admin: 08/04/16 14:23 Dose: Not Given Insulin Aspart (Novolog) 0 unit SC ACHS [facility] PRN Reason: Protocol Last Admin: 08/04/16 12:02 Dose: 1 unit Pantoprazole Sodium (Protonix Ec Tab) 40 mg PO DAILY [facility] Last Admin: 08/04/16 12:00 Dose: 40 mg Pneumococcal Polyvalent Vaccine (Pneumovax 23 Vaccine) 0.5 ml IM .ONCE ONE Stop: 08/06/16 10:01 Rosuvastatin Calcium (Crestor) 10 mg PO HS [facility] Sevelamer Carbonate (Renvela) 1,600 mg PO BIDCC [facility] Last Admin: 08/04/16 09:08 Dose: 1,600 mg - Labs Labs: PT 13.4 SECONDS (9.7-12.2) H 08/03/16 14:24 INR 1.2 08/03/16 14:24 APTT 32 SECONDS (21-34) 08/03/16 14:24 - Constitutional Appears: Well - Head Exam Head Exam: ATRAUMATIC, NORMAL INSPECTION, NORMOCEPHALIC - Eye Exam Eye Exam: EOMI, Normal appearance, PERRL Pupil Exam: NORMAL ACCOMODATION, PERRL - ENT Exam ENT Exam: Mucous Membranes Moist, Normal Exam - Neck Exam Neck Exam: Full ROM, Normal Inspection. absent: Lymphadenopathy - Respiratory Exam Respiratory Exam: Decreased Breath Sounds - Cardiovascular Exam Cardiovascular Exam: REGULAR RHYTHM, +S1, +S2 - GI/Abdominal Exam GI & Abdominal Exam: Soft, Diminished Bowel Sounds - Rectal Exam Rectal Exam: Deferred
[2016-08-04 17:01] VITALS: BP 111/54; PULSE 88; RESP 18; TEMP 98; O2SAT 95
--- NOTE | 2016-08-04 17:44 | CARD ---
APPROVED REPORT EKG Measurement Heart [id number] MA [id number] <Conclusion> Normal sinus rhythm ST & T wave abnormality, consider lateral ischemia Prolonged QT Abnormal ECG
[2016-08-06] MEDS ORDERED: Pneumococcal 23-Valent Vaccine IM ONE (10:00)
--- NOTE | 2016-08-07 09:37 | US ---
Date of Procedure: 08/04/2016 PROCEDURE: Ultrasound-guided paracentesis, CPT 63563 Medications: 8cc 1% Lidocaine HISTORY: Ascites, abdominal pain, cirrhosis TECHNIQUE: Following informed consent , the patient was placed supine on the stretcher and the site was marked. A limited abdominal ultrasound was performed that showed a large amount of intra-abdominal fluid. Procedural time out was called and the Pt's abdomen was marked and prepped and draped in the usual sterile fashion. Ultrasound-guided large volume paracentesis performed. A total of 4.5 liters of straw colored fluid was removed without complication. IMPRESSION: Ultrasound-guided large volume paracentesis.
== END 2016-08-04 16:30 | disposition home or self-care (01) | DRG 682 ==
LOC: C.ER 12:29 → C.9E 15:13 → UNDOADMIN 15:14 → C.3T 18:28
PROVIDERS: ADMIT Internal Medicine Nephrology; ATTEND Internal Medicine Nephrology
PROC: 5A1D60Z (ICD-10-PCS; principal; 2016-08-03)
PROC: 0W9G3ZZ Drainage of Peritoneal Cavity, Percutaneous Approach (ICD-10-PCS; 2016-08-04)
PROC: BW40ZZZ Ultrasonography of Abdomen (ICD-10-PCS; 2016-08-04)
DX: I13.11 Hypertensive heart and chronic kidney disease without heart failure, with stage 5 chronic kidney disease, or end stage renal disease (principal); N18.6 End stage renal disease; R18.8 Other ascites; E11.22 Type 2 diabetes mellitus with diabetic chronic kidney disease; K74.60 Unspecified cirrhosis of liver; J44.9 Chronic obstructive pulmonary disease, unspecified; E78.5 Hyperlipidemia, unspecified; I25.10 Atherosclerotic heart disease of native coronary artery without angina pectoris; L29.9 Pruritus, unspecified; Z87.442 Personal history of urinary calculi; Z91.19 Patient's noncompliance with other medical treatment and regimen; Z99.2 Dependence on renal dialysis; Z95.0 Presence of cardiac pacemaker

== ENCOUNTER 2016-08-16 11:16 | Emergency (ER) | payer MEDICARE, OTHER ==
[2016-08-16 11:16] VITALS: PULSE 68; BMI 23.2
[2016-08-16 11:42] VITALS: TEMP 97.4
[2016-08-16] MEDS ORDERED: Sodium Chloride 0.9% 1,000 ML IV ONE (11:44)
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
[2016-08-16 12:03] LABS: BASO # 0.1 K/uL (0.0-0.2); BASO % 1.3 % (0.0-2.0); EOS # 0.1 K/uL (0.0-0.7); HEMATOCRIT 42.5 % (34.0-47.0); LYMPH # 0.8 K/uL (1.0-4.3); LYMPH % 10.9 % (20.0-40.0); MEAN CELL VOLUME 90.7 fL (81.0-99.0); MEAN CORPUSCULAR HEMOGLOBIN 28.9 pg (27.0-31.0); MEAN CORPUSCULAR HGB CONC 31.8 g/dL (33.0-37.0); MEAN PLATELET VOLUME 9.3 fL (7.2-11.7); MONO # 0.8 K/uL (0.0-0.8); MONO % 11.2 % (0.0-10.0); RED CELL DISTRIBUTION WIDTH 14.5 % (11.5-14.5); WHITE BLOOD COUNT 7.1 K/uL (4.8-10.8)
[2016-08-16 12:08] LABS: INR 1.2
[2016-08-16 12:18] LABS: POTASSIUM 4.7 mmol/L (3.6-5.2)
[2016-08-16 12:20] LABS: ALB/GLOB RATIO 0.8 (1.0-2.1); BILIRUBIN,TOTAL 0.8 mg/dL (0.2-1.3); TOTAL PROTEIN 8.2 g/dL (6.3-8.3)
[2016-08-16 12:21] LABS: CALCIUM 8.4 mg/dl (8.6-10.4)
--- NOTE | 2016-08-16 12:27 | RAD ---
PROCEDURE: CHEST RADIOGRAPH, 1 VIEW HISTORY: SOB COMPARISON: 08/03/2016 FINDINGS: LUNGS: Mild chronic interstitial changes without new focal infiltrate. PLEURA: No pneumothorax or pleural fluid seen. CARDIOVASCULAR: Heart is enlarged. Left pacemaker is unchanged. There appears to be some mild decrease in congestion from prior study. OSSEOUS STRUCTURES: Unchanged. VISUALIZED UPPER ABDOMEN: Normal. OTHER FINDINGS: None. IMPRESSION: Cardiomegaly. Probable mild decrease in vascular congestion. No new infiltrate.
[2016-08-16 14:36] VITALS: BP 93/59; PULSE 96; RESP 18
[2016-08-16 14:44] VITALS: O2SAT 96
--- NOTE | 2016-08-16 16:27 | US ---
Date of Procedure: 08/16/2016 PROCEDURE: Ultrasound-guided paracentesis, CPT 35938 Medications: 8cc 1% Lidocaine HISTORY: Ascites, abdominal pain, cirrhosis TECHNIQUE: Following informed consent , the patient was placed supine on the stretcher and the site was marked. A limited abdominal ultrasound was performed that showed a large amount of intra-abdominal fluid. Procedural time out was called and the Pt's abdomen was marked and prepped and draped in the usual sterile fashion. Ultrasound-guided large volume paracentesis performed. A total of 4.7 liters of straw colored fluid was removed without complication. IMPRESSION: Ultrasound-guided large volume paracentesis.
--- NOTE | 2016-08-17 19:31 | CARD ---
APPROVED REPORT EKG Measurement Heart [id number] <Conclusion> Normal sinus rhythm with sinus arrhythmia Normal ECG
== END 2016-08-16 15:00 | disposition home or self-care (01) ==
LOC: C.ER 11:16
DX: N04.9 Nephrotic syndrome with unspecified morphologic changes (principal); N18.6 End stage renal disease; Z99.2 Dependence on renal dialysis

== ENCOUNTER 2016-09-01 09:30 | Inpatient (IN) | payer MEDICARE, OTHER ==
[2016-09-01 09:30] VITALS: PULSE 68; BMI 23.2
--- NOTE | 2016-09-01 10:45 | C.PDOC ---
History Of Present Illness 76 year old female presents to the ED with complaints of abdominal distension increasing over the last couple of weeks. Patient notes a history of recurrent ascites that requires drainage every few weeks. She denies any nausea, vomiting , or diarrhea. Time Seen by Provider: 09/01/16 10:03 Chief Complaint (Nursing): Abdominal Pain History Per: Patient History/Exam Limitations: no limitations Onset/Duration Of Symptoms: Persistent (recurrent ascites with abdominal distension worsening over the last couple of weeks ) Radiation Of Pain To:: None Associated Symptoms: denies: Fever, Chills, Nausea, Vomiting, Diarrhea Recent travel outside of the [place]: No Abnormal Vaginal Bleeding: No Past Medical History Reviewed: Historical Data, Nursing Documentation, Vital Signs Vital Signs: Last Vital Signs Temp 98.2 F 09/01/16 14:32 Pulse 81 09/01/16 14:32 Resp 20 09/01/16 14:32 BP 93/51 L 09/01/16 14:32 Pulse Ox 94 L 09/01/16 14:32 - Medical History PMH: Anemia, Asthma, CAD, Cardia Arrhythmia, CHF, COPD, Diabetes, Diverticulitis , Fractures, Hiatal Hernia, HTN, Hypercholesterolemia, Kidney Stones, End Stage Renal Disease, Chronic Kidney Disease Surgical History: Pacemaker (LEFT CHEST WALL) - [facility] Procedures BYPASS LEFT BRACHIAL ARTERY TO UPPER ARM VEIN, OPEN APPROACH (12/14/14) C.A.T. SCAN OF THORAX (08/16/13) DIALYSIS ARTERIOVENOSTOM (09/14/14) DRAINAGE OF PERITONEAL CAVITY WITH DRAIN DEV, PERC APPROACH (02/24/16) DRAINAGE OF PERITONEAL CAVITY, PERCUTANEOUS APPROACH (08/03/16) DX ULTRASOUND-ABDOMEN (10/25/14) HEMODIALYSIS (11/16/14) MEASUREMENT OF CARDIAC DEFIBRILLATOR, EXTERNAL APPROACH (12/14/14) PACKED CELL TRANSFUSION (08/16/13) PERCUTANEOUS ABDOMINAL DRAINAGE (11/16/14) PERFORMANCE OF URINARY FILTRATION, MULTIPLE (08/03/16) PERFORMANCE OF URINARY FILTRATION, SINGLE (06/29/16) REPOSITION LEFT BASILIC VEIN, OPEN APPROACH (05/30/15) SUPPLEMENT ABDOMINAL WALL WITH SYNTH SUB, OPEN APPROACH (03/17/15) THORACENTESIS (08/16/13) ULTRASONOGRAPHY OF ABDOMEN (08/03/16) VENOUS CATHETERIZATION FOR RENAL DIALYSIS (03/01/14) Family History: States: Diabetes - Social History Hx Tobacco Use: No Hx Alcohol Use: No Hx Substance Use: No - Immunization History Hx Tetanus Toxoid Vaccination: No Hx Influenza Vaccination: No (pt declines as per son) Hx Pneumococcal Vaccination: No Review Of Systems Except As Marked, All Systems Reviewed And Found Negative. Constitutional: Negative for: Fever, Chills Cardiovascular: Negative for: Chest Pain, Palpitations Respiratory: Negative for: Cough, Shortness of Breath Gastrointestinal: Positive for: Other (abdominal distension ). Negative for: Nausea, Vomiting, Diarrhea Physical Exam - Physical Exam Appears: Non-toxic, No Acute Distress Skin: Warm, Dry Head: Atraumatic Eye(s): bilateral: Normal Inspection Oral Mucosa: Moist Neck: Supple Chest: Symmetrical, No Deformity Cardiovascular: Rhythm Regular Respiratory: No Accessory Muscle Use, No Rhonchi, No Wheezing Gastrointestinal/Abdominal: Soft, No Tenderness, Distention, No Guarding, No Rebound, Ascites Extremity: Normal ROM, No Tenderness Neurological/Psych: Oriented x3 ED Course And Treatment - Laboratory Results Result Diagrams: 09/01/16 11:08 09/01/16 11:08 O2 Sat by Pulse Oximetry: 100 Medical Decision Making Medical Decision Making: disc w Dr Fernando Barry will admit for para Disposition - Disposition Disposition: HOSPITALIZED Disposition Time: 10:58 Condition: STABLE - Clinical Impression Clinical Impression: Ascites - Scribe Statement The provider has reviewed the documentation as recorded by the Scribe Trupti Spangler All medical record entries made by the Aliciaibe were at my direction and personally dictated by me. I have reviewed the chart and agree that the record accurately reflects my personal performance of the history, physical exam, medical decision making, and the department course for this patient. I have also personally directed, reviewed, and agree with the discharge instructions and disposition.
[2016-09-01 11:11] LABS: HEMOGLOBIN 12.1 g/dL (11.0-16.0); NRBC % 0.1 % (0.0-2.0); WHITE BLOOD COUNT 4.9 K/uL (4.8-10.8)
[2016-09-01 11:17] LABS: BASO # 0.1 K/uL (0.0-0.2); BASO % 1.5 % (0.0-2.0); EOS # 0.2 K/uL (0.0-0.7); EOS % 3.9 % (0.0-4.0); LYMPH # 0.8 K/uL (1.0-4.3); LYMPH % 16.7 % (20.0-40.0); MEAN CELL VOLUME 90.6 fL (81.0-99.0); MEAN CORPUSCULAR HEMOGLOBIN 28.8 pg (27.0-31.0); MEAN CORPUSCULAR HGB CONC 31.8 g/dL (33.0-37.0); MEAN PLATELET VOLUME 9.9 fL (7.2-11.7); MONO # 0.6 K/uL (0.0-0.8); MONO % 11.2 % (0.0-10.0); NEUT # 3.3 K/uL (1.8-7.0); NEUT % 66.7 % (50.0-75.0); RBC 4.19 Mil/uL (3.80-5.20); RED CELL DISTRIBUTION WIDTH 15.1 % (11.5-14.5)
[2016-09-01 11:27] LABS: ALBUMIN 3.2 g/dL (3.5-5.0)
[2016-09-01 11:31] LABS: ALB/GLOB RATIO 0.8 (1.0-2.1); CALCIUM 8.2 mg/dl (8.6-10.4)
[2016-09-01] MEDS: GlipiZIDE 2.5 mg Tab PO SCH ×2 (17:52→17:59)
--- NOTE | 2016-09-01 17:59 | CP.PCM.HP ---
Past Patient History - Infectious Disease Hx of Infectious Diseases: None - Past Medical History & Family History Past Medical History?: Yes - Past Social History Smoking Status: Never Smoked - CARDIAC Hx Cardia Arrhythmia: Yes Hx Congestive Heart Failure: Yes Hx Hypercholesterolemia: Yes Hx Hypertension: Yes Hx Pacemaker: Yes (LEFT CHEST WALL) - PULMONARY Hx Asthma: Yes Hx Chronic Obstructive Pulmonary Disease (COPD): Yes - NEUROLOGICAL Hx Neurological Disorder: No - HEENT Hx HEENT Problems: Yes (SEE COMMENT) - RENAL Hx Chronic Kidney Disease: Yes Hx Kidney Stones: Yes - ENDOCRINE/METABOLIC Hx Endocrine Disorders: Yes Hx Diabetes Mellitus Type 2: Yes - HEMATOLOGICAL/ONCOLOGICAL Hx Anemia: Yes - INTEGUMENTARY Hx Dermatological Problems: No Other/Comment: herpes zoster - MUSCULOSKELETAL/RHEUMATOLOGICAL Hx Fractures: Yes - GASTROINTESTINAL Hx Diverticulitis: Yes - GENITOURINARY/GYNECOLOGICAL Hx Genitourinary Disorders: No - PSYCHIATRIC Hx Substance Use: No - SURGICAL HISTORY Hx Surgeries: Yes (SEE COMMENT) Hx Arteriovenous Shunt: Yes (LEFT ARM AV SHUNT) Other/Comment: pacemaker 2013, no additional information given by family and patient - ANESTHESIA Hx Anesthesia: Yes Hx Anesthesia Reactions: No (Denies) Hx Malignant Hyperthermia: No Meds Allergies/Adverse Reactions: Allergies Allergy/AdvReac Type Severity Reaction Status Date / Time oxycodone AdvReac Severe CONFUSION Verified 08/16/16 11:41 ferumoxides AdvReac REDNESS Verified 08/16/16 11:41 iron AdvReac REDNESS Verified 08/16/16 11:41 sodium ferric gluconate AdvReac REDNESS Verified 08/16/16 11:41 complex [From Ferrlecit] sucrose [From Ferrlecit] AdvReac REDNESS Verified 08/16/16 11:41 Physical Exam - Constitutional Appears: Well - Head Exam Head Exam: ATRAUMATIC, NORMAL INSPECTION, NORMOCEPHALIC - Eye Exam Eye Exam: EOMI, Normal appearance, PERRL Pupil Exam: NORMAL ACCOMODATION, PERRL - ENT Exam ENT Exam: Mucous Membranes Moist, Normal Exam - Neck Exam Neck exam: Positive for: Normal Inspection - Respiratory Exam Respiratory Exam: Decreased Breath Sounds - Cardiovascular Exam Cardiovascular Exam: REGULAR RHYTHM, +S1, +S2 - GI/Abdominal Exam GI & Abdominal Exam: Diminished Bowel Sounds, Soft - Rectal Exam Rectal Exam: Deferred Results - Vital Signs Recent Vital Signs: Last Vital Signs Temp 98.1 F 09/01/16 16:02 Pulse 81 09/01/16 16:02 Resp 20 09/01/16 16:02 BP 101/68 09/01/16 16:02 Pulse Ox 96 09/01/16 16:02 - Labs Result Diagrams: 09/01/16 11:08 09/01/16 11:08 Labs: Laboratory Results - last 24 hr 09/01/16 09/01/16 09/01/16 11:08 11:08 16:31 WBC 4.9 RBC 4.19 Hgb 12.1 Hct 38.0 MCV 90.6 MCH 28.8 MCHC 31.8 L RDW 15.1 H Plt Count 197 MPV 9.9 Neut % (Auto) 66.7 Lymph % (Auto) 16.7 L Robertson % (Auto) 11.2 H Eos % (Auto) 3.9 Baso % (Auto) 1.5 Neut # 3.3 Lymph # 0.8 L Robertson # 0.6 Eos # 0.2 Baso # 0.1 Sodium 138 Potassium 4.2 Chloride 96 L Carbon Dioxide 30 Anion Gap 17 BUN 20 H Creatinine 5.0 H Est GFR ( Amer) 10 Est GFR (Non-Af Amer) 8 POC Glucose (mg/dL) 160 H Random Glucose 232 H Calcium 8.2 L Total Bilirubin 0.7 AST 26 ALT 17 Alkaline Phosphatase 128 H Total Protein 7.1 Albumin 3.2 L Globulin 3.9 Albumin/Globulin Ratio 0.8 L Lipase 91
[2016-09-01] MEDS: Rosuvastatin Calcium 2.5 mg Tab PO SCH (21:05)
[2016-09-01] MEDS: (Novolog) Insulin Aspart, Recombinant 100 u/ml 10 ml vial SC SCH (21:34)
[2016-09-02] MEDS: (Novolog) Insulin Aspart, Recombinant 100 u/ml 10 ml vial SC SCH ×4 (08:05→21:40)
[2016-09-02] MEDS ORDERED: FENOFIBRATE MICRONIZED PO SCH (10:00)
[2016-09-02] MEDS: GlipiZIDE 2.5 mg Tab PO SCH ×2 (10:23→17:00)
[2016-09-02] MEDS: Pantoprazole 40 mg EC Tab PO SCH (10:24)
[2016-09-02 13:42] VITALS: RESP 20
--- NOTE | 2016-09-02 14:23 | CP.PCM.PN ---
Subjective - Date & Time of Evaluation Date of Evaluation: 09/02/16 Time of Evaluation: 08:40 - Subjective Subjective: clinically same Objective - Vital Signs/Intake and Output Vital Signs (last 24 hours): Temp Pulse Resp BP Pulse Ox 97.7 F 80 20 107/58 L 95 09/02/16 13:00 09/02/16 13:41 09/02/16 13:41 09/02/16 13:41 09/02/16 13:41 Intake and Output: 09/02/16 09/02/16 06:59 18:59 Intake Total 250 Balance 250 - Medications Medications: Current Medications Amlodipine Besylate (Norvasc) 10 mg PO DAILY [facility] Last Admin: 09/02/16 10:24 Dose: Not Given Diphenhydramine HCl (Benadryl) 25 mg PO TID PRN PRN Reason: Itching / Pruritus Furosemide (Lasix) 40 mg PO DAILY [facility] Last Admin: 09/02/16 10:23 Dose: Not Given Glipizide (Glucotrol) 2.5 mg PO BID [facility] Last Admin: 09/02/16 10:23 Dose: Not Given Hydralazine HCl (Apresoline) 25 mg PO TID [facility] Last Admin: 09/02/16 13:42 Dose: 25 mg Insulin Aspart (Novolog) 0 unit SC ACHS [facility] PRN Reason: Protocol Last Admin: 09/02/16 11:39 Dose: Not Given Pantoprazole Sodium (Protonix Ec Tab) 40 mg PO DAILY [facility] Last Admin: 09/02/16 10:24 Dose: Not Given Rosuvastatin Calcium (Crestor) 2.5 mg PO HS [facility] Last Admin: 09/01/16 21:05 Dose: 2.5 mg Sevelamer Carbonate (Renvela) 1,600 mg PO BID [facility] Last Admin: 09/02/16 10:24 Dose: Not Given - Labs Labs: 09/01/16 11:08 09/01/16 11:08 - Constitutional Appears: Well - Head Exam Head Exam: ATRAUMATIC, NORMAL INSPECTION, NORMOCEPHALIC - Eye Exam Eye Exam: EOMI, Normal appearance, PERRL Pupil Exam: NORMAL ACCOMODATION, PERRL - ENT Exam ENT Exam: Mucous Membranes Moist, Normal Exam - Neck Exam Neck Exam: Full ROM, Normal Inspection. absent: Lymphadenopathy - Respiratory Exam Respiratory Exam: Decreased Breath Sounds - Cardiovascular Exam Cardiovascular Exam: REGULAR RHYTHM, +S1, +S2 - GI/Abdominal Exam GI & Abdominal Exam: Soft, Diminished Bowel Sounds - Rectal Exam Rectal Exam: Deferred
[2016-09-02] MEDS: Rosuvastatin Calcium 2.5 mg Tab PO SCH (21:38)
[2016-09-03] MEDS: (Novolog) Insulin Aspart, Recombinant 100 u/ml 10 ml vial SC SCH ×4 (08:00→21:39)
[2016-09-03] MEDS: Pantoprazole 40 mg EC Tab PO SCH (09:49)
[2016-09-03] MEDS: GlipiZIDE 2.5 mg Tab PO SCH ×2 (09:49→17:19)
--- NOTE | 2016-09-03 20:52 | CP.PCM.PN ---
Subjective - Date & Time of Evaluation Date of Evaluation: 09/03/16 Time of Evaluation: 08:00 - Subjective Subjective: clinically same Objective - Vital Signs/Intake and Output Vital Signs (last 24 hours): Temp Pulse Resp BP Pulse Ox 98.2 F 84 20 95/54 L 97 09/03/16 16:00 09/03/16 16:00 09/03/16 16:00 09/03/16 16:00 09/03/16 16:00 Intake and Output: 09/03/16 09/04/16 18:59 06:59 Intake Total 300 Balance 300 - Medications Medications: Current Medications Amlodipine Besylate (Norvasc) 10 mg PO DAILY [facility] Last Admin: 09/03/16 09:51 Dose: Not Given Diphenhydramine HCl (Benadryl) 25 mg PO TID PRN PRN Reason: Itching / Pruritus Furosemide (Lasix) 40 mg PO DAILY [facility] Last Admin: 09/03/16 09:50 Dose: Not Given Glipizide (Glucotrol) 2.5 mg PO BID [facility] Last Admin: 09/03/16 17:19 Dose: 2.5 mg Hydralazine HCl (Apresoline) 25 mg PO TID [facility] Last Admin: 09/03/16 17:20 Dose: Not Given Insulin Aspart (Novolog) 0 unit SC ACHS [facility] PRN Reason: Protocol Last Admin: 09/03/16 17:20 Dose: Not Given Pantoprazole Sodium (Protonix Ec Tab) 40 mg PO DAILY [facility] Last Admin: 09/03/16 09:49 Dose: 40 mg Rosuvastatin Calcium (Crestor) 2.5 mg PO [facility] Last Admin: 09/02/16 21:38 Dose: 2.5 mg - Constitutional Appears: Well - Head Exam Head Exam: ATRAUMATIC, NORMAL INSPECTION, NORMOCEPHALIC - Eye Exam Eye Exam: EOMI, Normal appearance, PERRL Pupil Exam: NORMAL ACCOMODATION, PERRL - ENT Exam ENT Exam: Mucous Membranes Moist, Normal Exam - Neck Exam Neck Exam: Full ROM, Normal Inspection. absent: Lymphadenopathy - Respiratory Exam Respiratory Exam: Decreased Breath Sounds - Cardiovascular Exam Cardiovascular Exam: REGULAR RHYTHM, +S1, +S2 - GI/Abdominal Exam GI & Abdominal Exam: Soft, Diminished Bowel Sounds - Rectal Exam Rectal Exam: Deferred
[2016-09-03] MEDS: Rosuvastatin Calcium 2.5 mg Tab PO SCH (21:39)
[2016-09-04 07:15] VITALS: BP 95/60; PULSE 80; TEMP 97.7; O2SAT 96
[2016-09-04] MEDS: (Novolog) Insulin Aspart, Recombinant 100 u/ml 10 ml vial SC SCH ×2 (08:10→12:00)
[2016-09-04] MEDS: GlipiZIDE 2.5 mg Tab PO SCH (09:34)
[2016-09-04] MEDS: Pantoprazole 40 mg EC Tab PO SCH (09:34)
[2016-09-04] MEDS ORDERED: Pneumococcal 23-Valent Vaccine IM ONE (12:52)
--- NOTE | 2016-09-04 13:47 | PCM.SURG1 ---
Surgeon's Initial Post Op Note - Surgeon's Notes Surgeon: Steven Monroy MD Edging Catcher: NONE Type of Anesthesia: Local Pre-Operative Diagnosis: Ascites Operative Findings: US showed large amount of ascites Post-Operative Diagnosis: Ascites Operation Performed: US guided paracentesis. Specimen/Specimens Removed: 5 liters of straw colored fluid Estimated Blood Loss: EBL {In ML}: 0 Blood Products Given: N/A Drains Used: No Drains Post-Op Condition: Fair Date of Surgery/Procedure: 09/04/16 Time of Surgery/Procedure: 12:00
--- NOTE | 2016-09-04 14:08 | CP.PCM.PN ---
Subjective - Date & Time of Evaluation Date of Evaluation: 09/04/16 Time of Evaluation: 08:00 - Subjective Subjective: clinically same Objective - Vital Signs/Intake and Output Vital Signs (last 24 hours): Temp Pulse Resp BP Pulse Ox 97.7 F 80 20 95/60 L 96 09/04/16 07:13 09/04/16 07:13 09/04/16 07:13 09/04/16 09:34 09/04/16 07:13 Intake and Output: 09/04/16 09/04/16 06:59 18:59 Intake Total 120 300 Balance 120 300 - Medications Medications: Current Medications Amlodipine Besylate (Norvasc) 10 mg PO DAILY [facility] Last Admin: 09/04/16 09:34 Dose: Not Given Diphenhydramine HCl (Benadryl) 25 mg PO TID PRN PRN Reason: Itching / Pruritus Furosemide (Lasix) 40 mg PO DAILY [facility] Last Admin: 09/04/16 09:34 Dose: Not Given Glipizide (Glucotrol) 2.5 mg PO BID [facility] Last Admin: 09/04/16 09:34 Dose: 2.5 mg Hydralazine HCl (Apresoline) 25 mg PO TID [facility] Last Admin: 09/04/16 09:33 Dose: Not Given Insulin Aspart (Novolog) 0 unit SC ACHS [facility] PRN Reason: Protocol Last Admin: 09/04/16 12:00 Dose: Not Given Pantoprazole Sodium (Protonix Ec Tab) 40 mg PO DAILY [facility] Last Admin: 09/04/16 09:34 Dose: 40 mg Rosuvastatin Calcium (Crestor) 2.5 mg PO [facility] Last Admin: 09/03/16 21:39 Dose: 2.5 mg - Constitutional Appears: Well - Head Exam Head Exam: ATRAUMATIC, NORMAL INSPECTION, NORMOCEPHALIC - Eye Exam Eye Exam: EOMI, Normal appearance, PERRL Pupil Exam: NORMAL ACCOMODATION, PERRL - ENT Exam ENT Exam: Mucous Membranes Moist, Normal Exam - Neck Exam Neck Exam: Full ROM, Normal Inspection. absent: Lymphadenopathy - Respiratory Exam Respiratory Exam: Decreased Breath Sounds - Cardiovascular Exam Cardiovascular Exam: REGULAR RHYTHM, +S1, +S2 - GI/Abdominal Exam GI & Abdominal Exam: Soft, Diminished Bowel Sounds - Rectal Exam Rectal Exam: Deferred
--- NOTE | 2016-09-04 14:49 | US ---
Date of Procedure: 09/04/2016 PROCEDURE: Ultrasound-guided paracentesis, CPT 69401 Medications: 8 cc 1% Lidocaine HISTORY: Ascites, abdominal pain, cirrhosis TECHNIQUE: Following informed consent , the patient was placed supine on the stretcher and the site was marked. A limited abdominal ultrasound was performed that showed a large amount of intra-abdominal fluid. Procedural time out was called and the Pt's abdomen was marked and prepped and draped in the usual sterile fashion. Ultrasound-guided large volume paracentesis performed. A total of 5 liters of straw colored fluid was removed without complication. IMPRESSION: Ultrasound-guided large volume paracentesis.
== END 2016-09-04 13:25 | disposition home or self-care (01) | DRG 432 ==
LOC: C.ER 09:30 → C.9E 10:56 → C.3T 14:20 → OBSVTOIN 09-02 17:28
PROVIDERS: ADMIT Internal Medicine Nephrology; ATTEND Internal Medicine Nephrology
PROC: 5A1D60Z (ICD-10-PCS; 2016-09-02)
PROC: 0W9G3ZZ Drainage of Peritoneal Cavity, Percutaneous Approach (ICD-10-PCS; principal; 2016-09-04)
PROC: BW40ZZZ Ultrasonography of Abdomen (ICD-10-PCS; 2016-09-04)
DX: K74.60 Unspecified cirrhosis of liver (principal); R18.8 Other ascites; N18.6 End stage renal disease; I13.2 Hypertensive heart and chronic kidney disease with heart failure and with stage 5 chronic kidney disease, or end stage renal disease; E11.22 Type 2 diabetes mellitus with diabetic chronic kidney disease; J44.9 Chronic obstructive pulmonary disease, unspecified; E78.00 Pure hypercholesterolemia, unspecified; I25.10 Atherosclerotic heart disease of native coronary artery without angina pectoris; D64.9 Anemia, unspecified; I50.9 Heart failure, unspecified; Z87.442 Personal history of urinary calculi; Z95.0 Presence of cardiac pacemaker; Z99.2 Dependence on renal dialysis

== ENCOUNTER 2016-09-21 20:37 | Inpatient (IN) | payer MEDICARE, OTHER ==
[2016-09-21 20:37] VITALS: PULSE 68; BMI 23.2
--- NOTE | 2016-09-21 20:52 | C.PDOC ---
History Of Present Illness 76 y/o female presents to emergency department with complaint of shortness of breath. Pt is dialysis a patient and reports she gets paracentesis appx every 2 weeks for ascites. Denies fever, chills, nausea, vomiting. Pt is a t-th-sat hd, and missed her HD today Time Seen by Provider: 09/21/16 20:52 Chief Complaint (Nursing): Shortness Of Breath History Per: Patient History/Exam Limitations: no limitations Onset/Duration Of Symptoms: Days Current Symptoms Are (Timing): Still Present Initiating Event: Other Quality: Dull Exacerbating Factor(s): Exertion, Laying Flat Current Respiratory Medications: See Home Med List Severity: Moderate Pain Scale Rating Of: 4 Associated Symptoms: denies: Fever, Chills, Chest Pain, Dizziness Reports Recently: Seen In ED, Treated By A Physician, Hospitalized Recent travel outside of the [place]: No Additional History Per: Family Past Medical History Reviewed: Historical Data, Nursing Documentation, Vital Signs Vital Signs: Last Vital Signs Temp 97.4 F L 09/21/16 20:39 Pulse 73 09/21/16 21:50 Resp 14 09/21/16 21:52 BP 104/55 L 09/21/16 21:50 Pulse Ox 92 L 09/21/16 22:09 - Medical History PMH: Anemia, Asthma, CAD, Cardia Arrhythmia, CHF, COPD, Diabetes, Diverticulitis , Fractures, Hiatal Hernia, HTN, Hypercholesterolemia, Kidney Stones, End Stage Renal Disease, Chronic Kidney Disease Surgical History: Pacemaker (LEFT CHEST WALL) - [facility] Procedures BYPASS LEFT BRACHIAL ARTERY TO UPPER ARM VEIN, OPEN APPROACH (12/14/14) C.A.T. SCAN OF THORAX (08/16/13) DIALYSIS ARTERIOVENOSTOM (09/14/14) DRAINAGE OF PERITONEAL CAVITY WITH DRAIN DEV, PERC APPROACH (02/24/16) DRAINAGE OF PERITONEAL CAVITY, PERCUTANEOUS APPROACH (09/02/16) DX ULTRASOUND-ABDOMEN (10/25/14) HEMODIALYSIS (11/16/14) MEASUREMENT OF CARDIAC DEFIBRILLATOR, EXTERNAL APPROACH (12/14/14) PACKED CELL TRANSFUSION (08/16/13) PERCUTANEOUS ABDOMINAL DRAINAGE (11/16/14) PERFORMANCE OF URINARY FILTRATION, MULTIPLE (09/02/16) PERFORMANCE OF URINARY FILTRATION, SINGLE (06/29/16) REPOSITION LEFT BASILIC VEIN, OPEN APPROACH (05/30/15) SUPPLEMENT ABDOMINAL WALL WITH SYNTH SUB, OPEN APPROACH (03/17/15) THORACENTESIS (08/16/13) ULTRASONOGRAPHY OF ABDOMEN (09/02/16) VENOUS CATHETERIZATION FOR RENAL DIALYSIS (03/01/14) Family History: States: Diabetes - Social History Hx Tobacco Use: No Hx Alcohol Use: No Hx Substance Use: No - Immunization History Hx Tetanus Toxoid Vaccination: No Hx Influenza Vaccination: No (pt declines as per son) Hx Pneumococcal Vaccination: No Review Of Systems Constitutional: Negative for: Fever, Chills Eyes: Negative for: Redness ENT: Negative for: Throat Pain Cardiovascular: Negative for: Chest Pain Respiratory: Positive for: Shortness of Breath, SOB with Excertion. Negative for: Wheezing Gastrointestinal: Negative for: Nausea, Vomiting, Diarrhea Musculoskeletal: Negative for: Back Pain Skin: Negative for: Rash Neurological: Negative for: Confusion, Dizziness Psych: Negative for: Anxiety Physical Exam - Physical Exam Appears: Non-toxic, Other Skin: Warm, Dry Head: Atraumatic, Normacephalic Eye(s): bilateral: Normal Inspection Oral Mucosa: Moist Neck: Supple Chest: Symmetrical Cardiovascular: Rhythm Regular Respiratory: Rales (bibasilar), No Rhonchi, No Wheezing Gastrointestinal/Abdominal: Distention (moderate), No Guarding, No Rebound, Ascites (tense) Back: No CVA Tenderness Extremity: Normal ROM, Capillary Refill (< 2 sec. ), Other (left AV shunt, good thrill and bruit ) Extremity: Bilateral: Normal Color And Temperature Neurological/Psych: Oriented x3, Normal Speech, Normal Cognition Gait: With Assistance ED Course And Treatment - Laboratory Results Result Diagrams: 09/21/16 21:26 09/21/16 21:26 ECG: Interpreted By Me, Viewed By Me ECG Rhythm: Sinus Rhythm (70), Nonspecific Changes O2 Sat by Pulse Oximetry: 92 Pulse Ox Interpretation: Abnormal - Radiology CXR: Interpreted by Me, Viewed By Me CXR Interpretation: Yes: Other (pacer left chest, mild vasc congestion, unchanged from 08/16/16) Progress Note: EKG, CxR, bloodwork. Disposition Discussed With : Quin Barry Comment: accepted the pt on his service and took over the care at 10:04 PM Doctor Will See Patient In The: Hospital Counseled Patient/Family Regarding: Studies Performed, Diagnosis - Disposition Disposition: HOSPITALIZED Disposition Time: 20:52 Condition: FAIR - POA Present On Arrival: Poor Glycemic Control - Clinical Impression Clinical Impression: Abdominal pain, Dyspnea, ESRD (end stage renal disease) on dialysis - Scribe Statement The provider has reviewed the documentation as recorded by the Aliciaibe Ramsey Bush All medical record entries made by the Scribe were at my direction and personally dictated by me. I have reviewed the chart and agree that the record accurately reflects my personal performance of the history, physical exam, medical decision making, and the department course for this patient. I have also personally directed, reviewed, and agree with the discharge instructions and disposition. Decision To Admit - Pt Status Changed To: Hospital Disposition Of: Inpatient - Admit Certification Admit to Inpatient:: After my assessment, the patient will require hospitalization for at least two midnights. This is because of the severity of symptoms shown, intensity of services needed, and/or the medical risk in this patient being treated as an outpatient. - InPatient: Physician Admission Certification: I certify that this patient requires 2 or more midnights of care for the following reason:: After my assessment, the patient will require hospitalization for at least two midnights. This is because of the severity of symptoms shown, intensity of services needed, and/or the medical risk in this patient being treated as an outpatient. - . Bed Request Type: Telemetry Admitting Physician: Quin Barry Patient Diagnosis: Abdominal pain, Dyspnea, ESRD (end stage renal disease) on dialysis
[2016-09-21 21:30] LABS: BASO # 0.1 K/uL (0.0-0.2); BASO % 1.3 % (0.0-2.0); EOS # 0.2 K/uL (0.0-0.7); EOS % 3.9 % (0.0-4.0); HEMATOCRIT 35.3 % (34.0-47.0); LYMPH % 18.8 % (20.0-40.0); MEAN CELL VOLUME 89.6 fL (81.0-99.0); MEAN CORPUSCULAR HEMOGLOBIN 29.3 pg (27.0-31.0); MEAN CORPUSCULAR HGB CONC 32.7 g/dL (33.0-37.0); MEAN PLATELET VOLUME 9.5 fL (7.2-11.7); MONO # 0.6 K/uL (0.0-0.8); MONO % 11.7 % (0.0-10.0); NRBC % 0.1 % (0.0-2.0); RED CELL DISTRIBUTION WIDTH 15.7 % (11.5-14.5); WHITE BLOOD COUNT 5.3 K/uL (4.8-10.8)
[2016-09-21 21:37] LABS: INR 1.1
[2016-09-21 21:45] LABS: POTASSIUM 5.4 mmol/L (3.6-5.2)
[2016-09-21 21:48] LABS: ALB/GLOB RATIO 0.9 (1.0-2.1); BILIRUBIN,TOTAL 0.7 mg/dL (0.2-1.3)
[2016-09-21 21:49] LABS: CALCIUM 7.6 mg/dl (8.6-10.4)
--- NOTE | 2016-09-22 07:49 | RAD ---
PROCEDURE: CHEST RADIOGRAPH, 1 VIEW HISTORY: Shortness of breath COMPARISON: 08/16/2016 FINDINGS: LUNGS: Moderate venous congestion with patchy increased markings at the left lung base. Right hilar prominence. Biapical pleural thickening with upper lobe granulomatous changes. Bilateral hilar prominence. PLEURA: As above. CARDIOVASCULAR: Cardiomegaly. Left-sided pacemaker. OSSEOUS STRUCTURES: Degenerative changes in the spine and shoulders. Calcific tendinopathy of the left proximal humerus. VISUALIZED UPPER ABDOMEN: Normal. OTHER FINDINGS: None. IMPRESSION: Moderate venous congestion with patchy increased markings at the left lung base. Right hilar prominence. Biapical pleural thickening with upper lobe granulomatous changes. Bilateral hilar prominence.
[2016-09-22] MEDS: (Novolog) Insulin Aspart, Recombinant 100 u/ml 10 ml vial SC SCH ×4 (08:30→21:45)
[2016-09-22] MEDS ORDERED: GlipiZIDE 2.5 mg Tab PO SCH (10:00)
[2016-09-22] MEDS ORDERED: Hydrocortisone 1% Cream (30 GM) TOP SCH (10:00)
[2016-09-22] MEDS ORDERED: FENOFIBRATE MICRONIZED PO SCH (10:00)
[2016-09-22] MEDS: Pantoprazole 40 mg EC Tab PO SCH (10:35)
[2016-09-22] MEDS: Hydrocortisone 1% Cream (30 GM) TOP SCH ×2 (11:38→17:52)
--- NOTE | 2016-09-22 15:26 | US ---
Date of Procedure: 09/22/2016 PROCEDURE: Ultrasound-guided paracentesis, CPT 91091 Medications: 7 cc 1% Lidocaine HISTORY: Ascites, abdominal pain, cirrhosis TECHNIQUE: Following informed consent , the patient was placed supine on the stretcher and the site was marked. A limited abdominal ultrasound was performed that showed a large amount of intra-abdominal fluid. Procedural time out was called and the Pt's abdomen was marked and prepped and draped in the usual sterile fashion. Ultrasound-guided large volume paracentesis performed. A total of 4 liters of straw colored fluid was removed without complication. Fluid specimen was sent for culture, sensitivity, cytology and chemistries. IMPRESSION: Ultrasound-guided large volume paracentesis.
--- NOTE | 2016-09-22 17:47 | CP.PCM.HP ---
History of Present Illness - History of Present Illness History of Present Illness: 76 years old female patient with past medical history of COPD, CAD, CHF, hypertension, hypercholesterolemia, arrhythmia, kidney stones, ESRD on HD, diabetes, diverticulitis presented to the emergency department with complaint of shortness of breath. Patient is getting abdominal paracentesis every 2 weeks for ascites. No fever, nausea, vomiting. No chest pain, back pain, cough, palpitation Patient is on hemodialysis thrice a week but missed her HD today Present on Admission - Present on Admission Any Indicators Present on Admission: No Past Patient History - Infectious Disease Hx of Infectious Diseases: None - Past Medical History & Family History Past Medical History?: Yes - Past Social History Smoking Status: Never Smoked - CARDIAC Hx Cardiac Disorders: Yes Hx Cardia Arrhythmia: Yes Hx Congestive Heart Failure: Yes Hx Hypercholesterolemia: Yes Hx Hypertension: Yes Hx Pacemaker: Yes (LEFT CHEST WALL) - PULMONARY Hx Respiratory Disorders: Yes Hx Asthma: Yes Hx Chronic Obstructive Pulmonary Disease (COPD): Yes - NEUROLOGICAL Hx Neurological Disorder: No - HEENT Hx HEENT Problems: Yes (SEE COMMENT) - RENAL Hx Chronic Kidney Disease: Yes Type of Dialysis Access: AVS L arm Date of Last Dialysis Treatment: 09/19/16 Hx Kidney Stones: Yes Hx Neurogenic Bladder: No Hx Pyelonephritis: No Hx Renal (Kidney) Cancer: No Hx Renal Failure: Yes - ENDOCRINE/METABOLIC Hx Endocrine Disorders: Yes Hx Diabetes Mellitus Type 2: Yes - HEMATOLOGICAL/ONCOLOGICAL Hx Blood Disorders: Yes Hx Anemia: Yes - INTEGUMENTARY Hx Dermatological Problems: No Other/Comment: Hx: herpes zoster - MUSCULOSKELETAL/RHEUMATOLOGICAL Hx Musculoskeletal Disorders: Yes Hx Falls: No Hx Fractures: Yes - GASTROINTESTINAL Hx Gastrointestinal Disorders: Yes Hx Diverticulitis: Yes - GENITOURINARY/GYNECOLOGICAL Hx Genitourinary Disorders: No - PSYCHIATRIC Hx Psychophysiologic Disorder: No Hx Substance Use: No - SURGICAL HISTORY Hx Surgeries: Yes (SEE COMMENT) Hx Arteriovenous Shunt: Yes (LEFT ARM AV SHUNT) Other/Comment: pacemaker 2013, no additional information given by family and patient - ANESTHESIA Hx Anesthesia: Yes Hx Anesthesia Reactions: No (Denies) Hx Malignant Hyperthermia: No Has any member of the family had a problem w/ anesthesia?: No Meds Allergies/Adverse Reactions: Allergies Allergy/AdvReac Type Severity Reaction Status Date / Time oxycodone AdvReac Severe CONFUSION Verified 09/26/16 04:50 ferumoxides AdvReac REDNESS Verified 09/26/16 04:50 iron AdvReac REDNESS Verified 09/26/16 04:50 sodium ferric gluconate AdvReac REDNESS Verified 09/26/16 04:50 complex [From Ferrlecit] sucrose [From Ferrlecit] AdvReac REDNESS Verified 09/26/16 04:50 Physical Exam - Constitutional Appears: Well - Head Exam Head Exam: ATRAUMATIC, NORMAL INSPECTION, NORMOCEPHALIC - Eye Exam Eye Exam: EOMI, Normal appearance, PERRL Pupil Exam: NORMAL ACCOMODATION, PERRL - ENT Exam ENT Exam: Mucous Membranes Moist, Normal Exam - Neck Exam Neck exam: Positive for: Normal Inspection - Respiratory Exam Respiratory Exam: Decreased Breath Sounds - Cardiovascular Exam Cardiovascular Exam: REGULAR RHYTHM, +S1, +S2 - GI/Abdominal Exam GI & Abdominal Exam: Diminished Bowel Sounds, Soft - Rectal Exam Rectal Exam: Deferred Results - Vital Signs Recent Vital Signs: Last Vital Signs Temp 98.1 F 09/22/16 16:00 Pulse 72 09/22/16 16:00 Resp 20 09/22/16 16:00 BP 91/51 L 09/22/16 16:00 Pulse Ox 94 L 09/22/16 16:00 - Labs Result Diagrams: 09/21/16 21:26 09/21/16 21:26 Labs: Laboratory Results - last 24 hr 09/22/16 09/22/16 06:25 16:46 POC Glucose (mg/dL) 116 H 115 H Assessment & Plan (1) Abdominal pain Status: Acute (2) Abdominal wall pain Status: Acute (3) Acute on chronic systolic congestive heart failure Status: Acute Priority: Medium (4) Anasarca Status: Acute (5) Ascites Status: Acute Priority: Medium (6) Ascites, malignant Status: Acute (7) Bronchitis Status: Acute (8) Bronchitis, acute Status: Acute (9) CAD (coronary artery disease) Status: Acute (10) CHF (congestive heart failure) Status: Acute Priority: Low (11) COPD (chronic obstructive pulmonary disease) Status: Acute (12) Chest pain Status: Acute (13) Chest pain Status: Acute (14) Cirrhosis Status: Acute (15) Congestive heart failure with cardiomyopathy Status: Acute Priority: Medium (16) Contusion of foot, left Status: Acute (17) Deep vein thrombosis (DVT) Status: Acute (18) Dialysis patient Status: Acute (19) Diarrhea Status: Acute (20) Diarrhea Status: Acute (21) Dyspnea Status: Acute (22) Dyspnea Status: Acute (23) ESRD (end stage renal disease) Status: Acute (24) ESRD needing dialysis Status: Acute (25) Fluid overload Status: Acute (26) Foot pain Status: Acute (27) HLD (hyperlipidemia) Status: Acute (28) Hepatorenal syndrome Status: Acute (29) Herpes zoster Status: Acute (30) Humerus fracture Status: Acute (31) Hyperkalemia Status: Acute (32) Hypoglycemia Status: Acute Priority: Low (33) Incarcerated umbilical hernia Status: Acute (34) Increased ammonia level Status: Acute (35) Ischemic cardiomyopathy Status: Acute (36) Knee contusion Status: Acute (37) Lethargy Status: Acute (38) Liver disease Status: Acute (39) Nausea Status: Acute (40) Other ascites Status: Acute (41) Patient left without being seen Status: Acute (42) Poorly controlled ascites Status: Acute (43) Pre-operative cardiovascular examination, LVEF < 35% Status: Acute (44) Prophylactic measure Status: Acute (45) Pulmonary HTN Status: Acute (46) Renal failure Status: Acute (47) Renal insufficiency Status: Acute (48) Shortness of breath Status: Acute (49) Small bowel obstruction Status: Acute (50) Upper respiratory infection Status: Acute (51) Ventral hernia Status: Acute (52) Vomiting Status: Acute (53) Wrist contusion Status: Acute (54) Chronic congestive heart failure Status: Chronic (55) Chronic renal disease Status: Chronic Priority: Medium (56) Cirrhosis of liver with ascites Status: Chronic Priority: High (57) Diabetes mellitus Status: Chronic (58) ESRD (end stage renal disease) on dialysis Status: Chronic (59) End stage renal disease Status: Chronic Priority: Medium (60) Hypertension Status: Chronic (61) Liver failure Status: Chronic Priority: Medium (62) Pacemaker Status: Chronic (63) Pelvic fracture Status: Chronic (64) Type II diabetes mellitus Status: Chronic Priority: Medium (65) Uncontrolled diabetes mellitus Status: Chronic - Assessment and Plan (Free Text) Plan: Labs and meds reviewed Continue HD Paracentesis Accu-Cheks Insulin Glipizide Lasix Hydralazine Carvedilol Monitor labs
[2016-09-22] MEDS: GlipiZIDE 2.5 mg Tab PO SCH (17:51)
[2016-09-23] MEDS: (Novolog) Insulin Aspart, Recombinant 100 u/ml 10 ml vial SC SCH ×2 (07:40→12:04)
[2016-09-23] MEDS: GlipiZIDE 2.5 mg Tab PO SCH (09:30)
[2016-09-23] MEDS: Hydrocortisone 1% Cream (30 GM) TOP SCH (09:30)
[2016-09-23] MEDS: Pantoprazole 40 mg EC Tab PO SCH (09:31)
[2016-09-23] MEDS ORDERED: FENOFIBRATE MICRONIZED PO SCH (10:00)
[2016-09-23 10:45] VITALS: O2SAT 97
--- NOTE | 2016-09-23 12:17 | CP.PCM.PN ---
Subjective - Date & Time of Evaluation Date of Evaluation: 09/23/16 Time of Evaluation: 12:20 - Subjective Subjective: clinically same Objective - Vital Signs/Intake and Output Vital Signs (last 24 hours): Temp Pulse Resp BP Pulse Ox 97.3 F L 72 20 102/57 L 97 09/23/16 09:45 09/23/16 09:45 09/23/16 09:45 09/23/16 11:55 09/23/16 09:45 Intake and Output: 09/23/16 09/23/16 06:59 18:59 Intake Total 200 Balance 200 - Medications Medications: Current Medications Carvedilol (Coreg) 3.125 mg PO BID [facility] Last Admin: 09/23/16 09:30 Dose: Not Given Diphenhydramine HCl (Benadryl) 25 mg PO TID PRN PRN Reason: Itching / Pruritus Furosemide (Lasix) 3.125 mg PO DAILY [facility] Last Admin: 09/23/16 09:31 Dose: Not Given Glipizide (Glucotrol) 2.5 mg PO BID [facility] Last Admin: 09/23/16 09:30 Dose: Not Given Home Med (Fenofibrate,Micronized [Fenofibrate]) 1 tab PO DAILY [facility] Hydralazine HCl (Apresoline) 25 mg PO TID [facility] Last Admin: 09/23/16 09:30 Dose: Not Given Hydrocortisone (Cortizone 1% Cream) 0 gm TOP BID [facility] Last Admin: 09/23/16 09:30 Dose: Not Given Insulin Aspart (Novolog) 0 unit SC ACHS [facility] PRN Reason: Protocol Last Admin: 09/23/16 12:04 Dose: Not Given Loperamide HCl (Imodium) 2 mg PO TID PRN PRN Reason: Diarrhea Pantoprazole Sodium (Protonix Ec Tab) 40 mg PO DAILY [facility] Last Admin: 09/23/16 09:31 Dose: Not Given Rosuvastatin Calcium (Crestor) 1 mg PO HS [facility] Sevelamer Carbonate (Renvela) 1,600 mg PO BID [facility] Last Admin: 09/23/16 09:31 Dose: Not Given - Labs Labs: PT 13.0 SECONDS (9.7-12.2) H 09/21/16 21:26 INR 1.1 09/21/16 21:26 APTT 35 SECONDS (21-34) H 09/21/16 21:26 - Constitutional Appears: Well - Head Exam Head Exam: ATRAUMATIC, NORMAL INSPECTION, NORMOCEPHALIC - Eye Exam Eye Exam: EOMI, Normal appearance, PERRL Pupil Exam: NORMAL ACCOMODATION, PERRL - ENT Exam ENT Exam: Mucous Membranes Moist, Normal Exam - Neck Exam Neck Exam: Full ROM, Normal Inspection. absent: Lymphadenopathy - Respiratory Exam Respiratory Exam: Decreased Breath Sounds - Cardiovascular Exam Cardiovascular Exam: REGULAR RHYTHM, +S1, +S2 - GI/Abdominal Exam GI & Abdominal Exam: Soft, Diminished Bowel Sounds - Rectal Exam Rectal Exam: Deferred Assessment and Plan (1) Abdominal pain Status: Acute (2) Abdominal wall pain Status: Acute (3) Acute on chronic systolic congestive heart failure Status: Acute (4) Anasarca Status: Acute (5) Ascites Status: Acute (6) Ascites, malignant Status: Acute (7) Bronchitis Status: Acute (8) Bronchitis, acute Status: Acute (9) CAD (coronary artery disease) Status: Acute (10) CHF (congestive heart failure) Status: Acute (11) COPD (chronic obstructive pulmonary disease) Status: Acute (12) Chest pain Status: Acute (13) Chest pain Status: Acute (14) Cirrhosis Status: Acute (15) Congestive heart failure with cardiomyopathy Status: Acute (16) Contusion of foot, left Status: Acute (17) Deep vein thrombosis (DVT) Status: Acute (18) Dialysis patient Status: Acute (19) Diarrhea Status: Acute (20) Diarrhea Status: Acute (21) Dyspnea Status: Acute (22) Dyspnea Status: Acute (23) ESRD (end stage renal disease) Status: Acute (24) ESRD needing dialysis Status: Acute (25) Fluid overload Status: Acute (26) Foot pain Status: Acute (27) HLD (hyperlipidemia) Status: Acute (28) Hepatorenal syndrome Status: Acute (29) Herpes zoster Status: Acute (30) Humerus fracture Status: Acute (31) Hyperkalemia Status: Acute (32) Hypoglycemia Status: Acute (33) Incarcerated umbilical hernia Status: Acute (34) Increased ammonia level Status: Acute (35) Ischemic cardiomyopathy Status: Acute (36) Knee contusion Status: Acute (37) Lethargy Status: Acute (38) Liver disease Status: Acute (39) Nausea Status: Acute (40) Other ascites Status: Acute (41) Patient left without being seen Status: Acute (42) Poorly controlled ascites Status: Acute (43) Pre-operative cardiovascular examination, LVEF < 35% Status: Acute (44) Prophylactic measure Status: Acute (45) Pulmonary HTN Status: Acute (46) Renal failure Status: Acute (47) Renal insufficiency Status: Acute (48) Shortness of breath Status: Acute (49) Small bowel obstruction Status: Acute (50) Upper respiratory infection Status: Acute (51) Ventral hernia Status: Acute (52) Vomiting Status: Acute (53) Wrist contusion Status: Acute (54) Chronic congestive heart failure Status: Chronic (55) Chronic renal disease Status: Chronic (56) Cirrhosis of liver with ascites Status: Chronic (57) Diabetes mellitus Status: Chronic (58) ESRD (end stage renal disease) on dialysis Status: Chronic (59) End stage renal disease Status: Chronic (60) Hypertension Status: Chronic (61) Liver failure Status: Chronic (62) Pacemaker Status: Chronic (63) Pelvic fracture Status: Chronic (64) Type II diabetes mellitus Status: Chronic (65) Uncontrolled diabetes mellitus Status: Chronic - Assessment and Plan (Free Text) Plan: Patient clinically stable No acute event overnight Hemodialysis today Plan discharge if patient is clinically stable after hemodialysis Continue home meds Follow-up as outpatient Return to ED if symptom recurs
--- NOTE | 2016-09-23 12:23 | CP.PCM.PN ---
Subjective - Date & Time of Evaluation Date of Evaluation: 09/23/16 Time of Evaluation: 12:16 - Subjective Subjective: PT SEEN BY DR. Fernando HERRERA AND CLEARED FOR D/C ATFER HD. ALREADY SPOKE WITH PT' S SON REGARDING D/C AND HE WILL PICK HER UP THIS AFTERNOON. PER DR. Fernando HERRERA THE PT HAS ALL MEDS AND DOES NOT NEED RX. PT ENCOURAGED TO ADHERE TO HD SCHEDULE OUTPATIENT. PT TO F/U WITH DR. HERRERA IN OFFICE NEXT WEEK. NO FURTHER ORDERS. Objective - Vital Signs/Intake and Output Vital Signs (last 24 hours): Temp Pulse Resp BP Pulse Ox 97.3 F L 72 20 102/57 L 97 09/23/16 09:45 09/23/16 09:45 09/23/16 09:45 09/23/16 11:55 09/23/16 09:45 Intake and Output: 09/23/16 09/23/16 06:59 18:59 Intake Total 200 Balance 200 - Medications Medications: Current Medications Carvedilol (Coreg) 3.125 mg PO BID [facility] Last Admin: 09/23/16 09:30 Dose: Not Given Diphenhydramine HCl (Benadryl) 25 mg PO TID PRN PRN Reason: Itching / Pruritus Furosemide (Lasix) 3.125 mg PO DAILY [facility] Last Admin: 09/23/16 09:31 Dose: Not Given Glipizide (Glucotrol) 2.5 mg PO BID [facility] Last Admin: 09/23/16 09:30 Dose: Not Given Home Med (Fenofibrate,Micronized [Fenofibrate]) 1 tab PO DAILY [facility] Hydralazine HCl (Apresoline) 25 mg PO TID [facility] Last Admin: 09/23/16 09:30 Dose: Not Given Hydrocortisone (Cortizone 1% Cream) 0 gm TOP BID [facility] Last Admin: 09/23/16 09:30 Dose: Not Given Insulin Aspart (Novolog) 0 unit SC ACHS [facility] PRN Reason: Protocol Last Admin: 09/23/16 12:04 Dose: Not Given Loperamide HCl (Imodium) 2 mg PO TID PRN PRN Reason: Diarrhea Pantoprazole Sodium (Protonix Ec Tab) 40 mg PO DAILY [facility] Last Admin: 09/23/16 09:31 Dose: Not Given Rosuvastatin Calcium (Crestor) 1 mg PO HS [facility] Sevelamer Carbonate (Renvela) 1,600 mg PO BID [facility] Last Admin: 09/23/16 09:31 Dose: Not Given - Labs Labs: PT 13.0 SECONDS (9.7-12.2) H 09/21/16 21:26 INR 1.1 09/21/16 21:26 APTT 35 SECONDS (21-34) H 09/21/16 21:26
[2016-09-23 13:53] VITALS: BP 89/45
[2016-09-23 14:08] VITALS: PULSE 63; RESP 18; TEMP 97.1
--- NOTE | 2016-09-27 22:41 | CARD ---
APPROVED REPORT EXAM: Two-dimensional and M-mode echocardiogram with Doppler and color Doppler. Other Information Quality : GoodRhythm : NSR INDICATION Dyspnea Congestive Heart Failure COPD ESRD, SEVERE ASCITIS Surgery/Intervention Pacemaker: RISK FACTORS Diabetes 2D DIMENSIONS IVSd0.9 (0.7-1.1cm)LVDd5.3 (3.9-5.9cm) LVOT Diameter1.7 (1.8-2.4cm)PWd1.2 (0.7-1.1cm) IVSs1.2 (0.8-1.2cm)LVDs4.5 (2.5-4.0cm) FS (%) 14.4 %PWs1.5 (0.8-1.2cm) LVEF (%)30.4 (>50%) M-Mode DIMENSIONS RVDd3.30 (2.1-3.2cm)Left Atrium (MM)4.75 (2.5-4.0cm) IVSd0.76 (0.7-1.1cm)Aortic Root2.57 (2.2-3.7cm) LVDd6.25 (4.0-5.6cm)Aortic Cusp Exc.0.90 (1.5-2.0cm) PWd0.94 (0.7-1.1cm)FS (%) 17 % LVDs5.21 (2.0-3.8cm)LVEF (%)34 (>50%) Aortic Valve AoV Peak Wjloxohv408.2cm/sAoV VTI83.5cmAO Peak GR.48mmHg LVOT Peak Xfpzddla554.8cm/Walter Mean GR.33mmHgAVA (VMAX)1.15cm2 AI P 1/2 Ooem856xc Mitral Valve MV E Cyomkkqw592.9cm/sMV E Peak Gr.109mmHgMV A Tuprgtkd47.5cm/s MV E Mean Gr.80mmHgE/A ratio1.7 TDI E/Lateral E'0.0E/Medial E'0.0 Pulmonary Valve PV Peak Qqjhjdko09.0cm/sPV Peak Grad.2mmHg Tricuspid Valve TR Peak Zadizlvy836zv/sTR Peak Gr.29ztNlXDVY16clMp LEFT VENTRICLE The Left Ventricle is mildly dilated. There is normal left ventricular wall thickness. The systolic function is severely impaired. EF IS 15-20% MODERATE HYPOKINESIS OF THE INFEROLATERAL WALL, SEVERE HYPOKINESIS OF THE ANTEROLATERAL WALL AND ANTERIOR WALL. AKINESIS OF THE INFERIOR AND SEPTAL WATTERS. Transmitral Doppler flow pattern is Grade II-pseudonormal filling dynamics. RIGHT VENTRICLE The right ventricle is mildly dilated. There is normal right ventricular wall thickness. Systolic function is mildly reduced. DEVICE LEAD NOTED IN RA AND RV ATRIA The left atrium is severely dilated. The right atrium is severely dilated. The interatrial septum is intact with no evidence for an atrial septal defect. AORTIC VALVE The aortic valve is severely calcified. There is moderate aortic regurgitation. There is at least moderate valvular aortic stenosis. given severe LV dysfunction, would need dobutamine stress echo to eval severity of AV stenosis There is no aortic valvular vegetation. MITRAL VALVE Mitral annular calcification is severe. The mitral valve is calcified and displays decreased opening. There is no evidence of mitral valve prolapse. MV leaflet excursion is limited, however this may secondary to LV dysfunction, elevated lvedp, and severe diastolic dysfunction. Mitral regurgitation is severe. TRICUSPID VALVE THE TV ANNULOUS There is severe tricuspid regurgitation. THE TV ANNULOUS IS DILATED WITH POOR LEAFLET COAPTATION. There is no tricuspid valve stenosis. PULMONIC VALVE The pulmonary valve is normal in structure. There is severe pulmonic valvular regurgitation. There is no pulmonic valvular stenosis. GREAT VESSELS The aortic root is normal in size. There is mild pulmonary artery dilatation. IVC IS DILATED W DECREASED COLLAPSE. <Conclusion> EF IS 15-20% The Left Ventricle is mildly dilated. The systolic function is severely impaired. MODERATE HYPOKINESIS OF THE INFEROLATERAL WALL, SEVERE HYPOKINESIS OF THE ANTEROLATERAL WALL AND ANTERIOR WALL. AKINESIS OF THE INFERIOR AND SEPTAL WATTERS. Transmitral Doppler flow pattern is Grade II-pseudonormal filling dynamics. rv Systolic function is mildly reduced. The left atrium is severely dilated. The right atrium is severely dilated. DEVICE LEAD NOTED IN RA AND RV The aortic valve is severely calcified. There is moderate aortic regurgitation. There is at least moderate valvular aortic stenosis. given severe LV dysfunction, would need dobutamine stress echo to eval severity of AV stenosis Mitral annular calcification is severe. The mitral valve is calcified and displays decreased opening. MV leaflet excursion is limited, however this may secondary to LV dysfunction, elevated lvedp, and severe diastolic dysfunction. THE TV ANNULOUS IS DILATED WITH POOR LEAFLET COAPTATION. There is severe tricuspid regurgitation. There is severe pulmonic valvular regurgitation. rv Systolic function is mildly reduced. IVC IS DILATED W DECREASED COLLAPSE.
--- NOTE | 2016-10-02 09:01 | CARD ---
APPROVED REPORT EKG Measurement Heart [id number] [place] 160P64 [id number] <Conclusion> Normal sinus rhythm with sinus arrhythmia ST & T wave abnormality, consider lateral ischemia Abnormal ECG
== END 2016-09-23 14:24 | disposition home or self-care (01) | DRG 947 ==
LOC: C.ER 20:37 → C.9E 22:08 → C.6T 09-22 00:17
PROVIDERS: ADMIT Internal Medicine Nephrology; ATTEND Internal Medicine Nephrology
PROC: 0W9G3ZZ Drainage of Peritoneal Cavity, Percutaneous Approach (ICD-10-PCS; principal; 2016-09-22)
DX: R18.8 Other ascites (principal); N18.6 End stage renal disease; I13.2 Hypertensive heart and chronic kidney disease with heart failure and with stage 5 chronic kidney disease, or end stage renal disease; K74.60 Unspecified cirrhosis of liver; I50.9 Heart failure, unspecified; J44.9 Chronic obstructive pulmonary disease, unspecified; R10.9 Unspecified abdominal pain; I25.10 Atherosclerotic heart disease of native coronary artery without angina pectoris

== ENCOUNTER 2016-09-26 04:29 | Inpatient (IN) | payer MEDICARE, OTHER ==
[2016-09-26 04:29] VITALS: PULSE 68; BMI 23.2
--- NOTE | 2016-09-26 05:24 | C.PDOC ---
History Of Present Illness 76 year old female who presents to the ER with a complaint of malaise, decreased activity, and decreased appetite since yesterday, associated with cough and chest pain that began today. Patient was discharged from hospital on for noncompliance with dialysis. Patient is scheduled for Sunday, , and Sunday hemodialysis. Denies fever or vomiting. t-th-sat hd Time Seen by Provider: 09/26/16 05:22 Chief Complaint (Nursing): Shortness Of Breath History Per: Patient History/Exam Limitations: no limitations Onset/Duration Of Symptoms: Days Current Symptoms Are (Timing): Still Present Initiating Event: Other (not known) Current Respiratory Medications: None Associated Symptoms: Chest Pain. denies: Fever, Chills Recent travel outside of the [place]: No Past Medical History Reviewed: Historical Data, Nursing Documentation, Vital Signs Vital Signs: Last Vital Signs Temp 98.9 F 09/26/16 05:32 Pulse 90 09/26/16 04:41 Resp 99 H 09/26/16 04:48 BP 91/43 L 09/26/16 04:41 Pulse Ox 98 09/26/16 06:04 - Medical History PMH: Anemia, Asthma, CAD, Cardia Arrhythmia, CHF, COPD, Diabetes, Diverticulitis , Fractures, Hiatal Hernia, HTN, Hypercholesterolemia, Kidney Stones, End Stage Renal Disease, Chronic Kidney Disease Surgical History: Pacemaker (LEFT CHEST WALL) - [facility] BYPASS LEFT BRACHIAL ARTERY TO UPPER ARM VEIN, OPEN APPROACH (12/14/14) C.A.T. SCAN OF THORAX (08/16/13) DIALYSIS ARTERIOVENOSTOM (09/14/14) DRAINAGE OF PERITONEAL CAVITY WITH DRAIN DEV, PERC APPROACH (02/24/16) DRAINAGE OF PERITONEAL CAVITY, PERCUTANEOUS APPROACH (09/21/16) DX ULTRASOUND-ABDOMEN (10/25/14) HEMODIALYSIS (11/16/14) MEASUREMENT OF CARDIAC DEFIBRILLATOR, EXTERNAL APPROACH (12/14/14) PACKED CELL TRANSFUSION (08/16/13) PERCUTANEOUS ABDOMINAL DRAINAGE (11/16/14) PERFORMANCE OF URINARY FILTRATION, MULTIPLE (09/02/16) PERFORMANCE OF URINARY FILTRATION, SINGLE (06/29/16) REPOSITION LEFT BASILIC VEIN, OPEN APPROACH (05/30/15) SUPPLEMENT ABDOMINAL WALL WITH SYNTH SUB, OPEN APPROACH (03/17/15) THORACENTESIS (08/16/13) ULTRASONOGRAPHY OF ABDOMEN (09/02/16) VENOUS CATHETERIZATION FOR RENAL DIALYSIS (03/01/14) Family History: States: Diabetes - Social History Hx Tobacco Use: No Hx Alcohol Use: No Hx Substance Use: No - Immunization History Hx Tetanus Toxoid Vaccination: No Hx Influenza Vaccination: No (pt declines as per son) Hx Pneumococcal Vaccination: No Review Of Systems Except As Marked, All Systems Reviewed And Found Negative. Constitutional: Positive for: Malaise. Negative for: Fever, Chills Cardiovascular: Positive for: Chest Pain Respiratory: Positive for: Cough Gastrointestinal: Negative for: Vomiting Physical Exam - Physical Exam Appears: Non-toxic, Other (Mild distress) Skin: Normal Color, Warm, Dry Head: Atraumatic, Normacephalic Oral Mucosa: Moist Chest: Symmetrical, No Tenderness Cardiovascular: Rhythm Regular, No Murmur Respiratory: Normal Breath Sounds, No Rales, No Rhonchi, No Wheezing, Other ( poor effort) Gastrointestinal/Abdominal: Soft, No Tenderness Neurological/Psych: Oriented x3, Normal Speech, Normal Cognition ED Course And Treatment - Laboratory Results Result Diagrams: 09/26/16 05:43 ECG: Interpreted By Me ECG Rhythm: Sinus Rhythm ECG Interpretation: Normal Rate From EC O2 Sat by Pulse Oximetry: 98 Pulse Ox Interpretation: Normal - Radiology CXR: Interpreted by Me, Viewed By Me CXR Interpretation: Yes: Cardiomegaly Progress - Re-Evaluation Re-evaluation Note: 09/26/16 06:03 D/W DR Fernando HERRERA WILL ADMIT - Data Reviewed Data Reviewed: Lab, Diagnostic imaging, EKG, Old records Medical Decision Making Medical Decision Making: Plan: * Blood work * EKG * CXR Prior records reviewed, patient is SP paracentesis on 09/04. Disposition Counseled Patient/Family Regarding: Studies Performed, Diagnosis - Disposition Disposition: HOSPITALIZED Disposition Time: 06:03 Condition: STABLE Forms: [facility] (Serbian) - POA Present On Arrival: None - Clinical Impression Clinical Impression: ESRD (end stage renal disease) on dialysis, Chest pain, Bronchitis - Scribe Statement The provider has reviewed the documentation as recorded by the Scribe Iván Lyons All medical record entries made by the Scribe were at my direction and personally dictated by me. I have reviewed the chart and agree that the record accurately reflects my personal performance of the history, physical exam, medical decision making, and the department course for this patient. I have also personally directed, reviewed, and agree with the discharge instructions and disposition. Decision To Admit - Pt Status Changed To: Hospital Disposition Of: Observation - . Bed Request Type: Telemetry Admitting Physician: Quin Herrera Patient Diagnosis: ESRD (end stage renal disease) on dialysis, Chest pain
[2016-09-26 05:45] LABS: BASO % 0.1 % (0.0-2.0); EOS # 0.1 K/uL (0.0-0.7); EOS % 0.6 % (0.0-4.0); HEMATOCRIT 36.7 % (34.0-47.0); LYMPH # 0.7 K/uL (1.0-4.3); LYMPH % 7.3 % (20.0-40.0); MEAN CELL VOLUME 89.3 fL (81.0-99.0); MEAN CORPUSCULAR HEMOGLOBIN 29.3 pg (27.0-31.0); MEAN CORPUSCULAR HGB CONC 32.9 g/dL (33.0-37.0); MEAN PLATELET VOLUME 9.7 fL (7.2-11.7); MONO # 1.2 K/uL (0.0-0.8); MONO % 11.6 % (0.0-10.0); PLATELET COUNT 226 K/uL (130-400); RED CELL DISTRIBUTION WIDTH 15.5 % (11.5-14.5); WHITE BLOOD COUNT 10.2 K/uL (4.8-10.8)
[2016-09-26 06:04] LABS: CALCIUM 7.2 mg/dl (8.6-10.4)
[2016-09-26 06:15] LABS: TROPONIN I 0.046 ng/mL (0.00-0.120)
[2016-09-26] MEDS ORDERED: Moxifloxacin IV 400mg/250ml NS 400 MG/250 ML BAG IVPB SCH (06:30)
[2016-09-26 06:33] LABS: POTASSIUM 6.3 mmol/L (3.6-5.2)
[2016-09-26 06:49] LABS: EOSINOPHIL 1 % (0-4); NEUTROPHIL 77 % (50-75); TOTAL CELLS COUNTED 100
[2016-09-26] MEDS ORDERED: Calcium Gluconate 4.65 MEQ in Dextrose 5% In Water 100 ML IV ONE (06:54)
[2016-09-26] MEDS ORDERED: Dextrose 50% SYRINGE Inj (50 ml) IVP STA (06:55)
[2016-09-26] MEDS ORDERED: (Novolin R) Insulin Human Regular 100 units/ml vial IV ONE (06:55)
--- NOTE | 2016-09-26 09:10 | RAD ---
PROCEDURE: CHEST RADIOGRAPH, 1 VIEW HISTORY: Shortness of breath COMPARISON: 09/21/2016 FINDINGS: LUNGS: Diffuse increased interstitial lung markings. Biapical pleural thickening with upper lobe granulomatous changes. Mild to moderate venous congestion. Patchy left basilar airspace opacity. PLEURA: As above. CARDIOVASCULAR: Cardiomegaly. Left-sided pacemaker. OSSEOUS STRUCTURES: Deformity of the right proximal humerus. VISUALIZED UPPER ABDOMEN: Normal. OTHER FINDINGS: None. IMPRESSION: Diffuse increased interstitial lung markings. Biapical pleural thickening with upper lobe granulomatous changes. Mild to moderate venous congestion. Patchy left basilar airspace opacity.
[2016-09-26] MEDS ORDERED: FENOFIBRATE MICRONIZED PO SCH ×2 (10:00)
[2016-09-26] MEDS ORDERED: Enoxaparin 40 mg Syringe SC SCH (10:00)
[2016-09-26] MEDS: Pantoprazole 40 mg EC Tab PO SCH (10:39)
[2016-09-26] MEDS: Albuterol-Ipratrop 3 mg / 0.5 (3 ml) UD INH SCH ×3 (10:44→20:09)
[2016-09-26] MEDS: GlipiZIDE 2.5 mg Tab PO SCH (10:53)
[2016-09-26] MEDS: Hydrocortisone 1% Cream (30 GM) TOP SCH ×2 (10:54→18:53)
[2016-09-26] MEDS: (Novolog) Insulin Aspart, Recombinant 100 u/ml 10 ml vial SC SCH ×3 (13:24→21:40)
[2016-09-26] MEDS ORDERED: Dextrose 50% SYRINGE Inj (50 ml) IV STA (14:59)
[2016-09-26] MEDS ORDERED: (Novolin R) Insulin Human Regular 100 units/ml vial IV STA (14:59)
[2016-09-26] MEDS ORDERED: Sodium Chloride 0.9% 250 ML IV SCH (15:00)
[2016-09-26] MEDS ORDERED: DOPamine 400mg/250ml D5W 400 MG/250 ML BAG IV PRN (15:20)
[2016-09-26 15:35] LABS: VENOUS BLOOD GAS BASE EXCESS -2.6 mmol/L (0.0-2.0); VENOUS BLOOD GAS PCO2 43 mmHg (40-60); VENOUS BLOOD PH 7.34 (7.32-7.43)
--- NOTE | 2016-09-26 15:37 | RAD ---
HISTORY: dyspnea COMPARISON: 09/26/2016 at 5:40 a.m. FINDINGS: LUNGS: There is mild pulmonary venous congestion and redistribution. PLEURA: No significant pleural effusion identified, no pneumothorax apparent. CARDIOVASCULAR: There is persistent severe cardiomegaly. There is stable position of a left-sided AICD. OSSEOUS STRUCTURES: There is diffuse bone demineralization. There is an old deformity in the right proximal humerus. VISUALIZED UPPER ABDOMEN: Normal. OTHER FINDINGS: None. IMPRESSION: 1. Persistent severe cardiomegaly, mild pulmonary venous congestion and redistribution. 2. No active pulmonary disease.
--- NOTE | 2016-09-26 15:58 | PCM.RRTMUL ---
<Dylan Springer - Last Filed: 09/26/16 15:54> SOAPING MACHINE BACK TENDER Nurses Assessment - Situation SOAPING MACHINE BACK TENDER Responder Arrival Time:: 14:00 Location:: 6T SOAPING MACHINE BACK TENDER Reason for Call: Hypotension SOAPING MACHINE BACK TENDER Called By: RN - IV IV Inserted during SOAPING MACHINE BACK TENDER?: Yes IV Fluids Initiated During SOAPING MACHINE BACK TENDER?: 250ml NS x2. D50 1 amp. Dopamine 5mics/kg New IV Insertion Tolerance:: Excellent - Respiratory Oxygen Delivery Method:: Nasal Cannula Received Nebulizer Treatments:: No Was the Patient Ventilated with Bag/Mask 100% O2?: No Secretions Suctioned?: No Was the Patient Intubated?: No Was the Patient Placed on a Ventilator?: No - Medication Medications Administered During SOAPING MACHINE BACK TENDER :: Dopamine 5mc/kg - Diagnostic Test Ordered EKG:: Yes (prolonged QT) Chest X-Ray:: Yes (increased venous congestion) CT Scan:: No - Stat Labs Ordered SOAPING MACHINE BACK TENDER Stat Labs Ordered:: CBC CPR started during SOAPING MACHINE BACK TENDER?: No - Vital Signs Blood Pressure:: 55/37 Pulse Rate:: 76 - [place] Coma Scale Coma Scale Eye Opening:: Spontaneous Coma Scale Motor:: Obeys Commands Movement Coma Scale Verbal:: Oriented Coma Scale Total:: 15 - Sepsis Screen Part 1 Sepsis Screen Part 1: Hypotensive - Time SOAPING MACHINE BACK TENDER Ended Time SOAPING MACHINE BACK TENDER Ended:: 15:45 - Vital Signs at end of SOAPING MACHINE BACK TENDER Blood Pressure:: 84/46 - Recommendations 5) SOAPING MACHINE BACK TENDER Level of Care Recommendations: Transfer to ICU 6) Notifications: Attending Physician, Family or Designated Caregiver I.Reason for SOAPING MACHINE BACK TENDER - A) Acute Change in Patient: (Select all that apply): Acute change in SBP below - A) Initial Vital Signs: Blood Pressure: 55/37 - B) Neurological Status (Select all that apply): Alert - C) Respiratory Oxygen Delivery Method: Nasal Cannula @L/min - Constitutional Appears: In Acute Distress - Respiratory Exam Respiratory Exam: Rales, Respiratory Distress - Cardiovascular Exam Cardiovascular Exam: REGULAR RHYTHM - GI/Abdominal Exam GI & Abdominal Exam: Soft. absent: Distended, Firm, Tenderness - Neurological Exam Neurological Exam: Alert, Awake Plan - A. End of SOAPING MACHINE BACK TENDER Vital Signs: Blood Pressure: 84/46 - B. Assessment of Findings&Treatment Plan SOAPING MACHINE BACK TENDER was called for hypotension dee a SBP of 55. repeat BP was 63/33. Patient states she has been dizzy and lethargic x2d. Recent labs showed a potassium of 6.3. 250 mls NS were administered. EKG was done that showed a prolonged QT interval. Medications were reviewed and zofran and moxifloxacin was stopped at that time. 10 units of IV regular insulin were administered. 1 amp of D50 was administered. A CXR was done that showed increased venous congestion when compared to previous CXR. repeat BP was 76/40. Another 250ml of NS were administered. Dopamine was started at 5mc/kg. Repeat BP was 84/46. Patient was transferred to the ICU in my presence and the details of the RR were discussed with the sifting operator. <Kiersten Amaral V - Last Filed: 09/26/16 22:50> Attending/Attestation - Attestation I have personally seen and examined this patient.: Yes I have fully participated in the care of the patient.: Yes I have reviewed all pertinent clinical information, including history, physical exam and plan: Yes Notes (Text): Responded with SOAPING MACHINE BACK TENDER team. Nurse called for hypotension. Patient with hx of ESRD, cirrhosis, CHF, Aortic stenosis with 2 day hx of diarrhea came in today with SBP:60s. Given her history given 250 cc bolus of NS X2 but blood pressure mildly improved. Chest xray increased congestion. Patient started on dopamine once secure adequate peripheral access. Patient was hyperkalemic at time of admission given insulin and amp D50. Discussed with patient's grandaughter Beatriz Mon, age 24 who reports she and her uncle are the primary decision makers for grandmom; given her the events noted on the floor and to be monitored by ICU. Discussed with ICU regarding events of SOAPING MACHINE BACK TENDER, patient transferred to ICU. Zofran d/c secondary to QT 530 ms.
--- NOTE | 2016-09-26 17:16 | CP.PCM.HP ---
History of Present Illness - History of Present Illness History of Present Illness: 76-year-old female with history of end-stage renal disease history of diabetes history of hypertension history of chest pain status post seen by the heart echo report to be greater discussed with the son brought into the hospital because of chest pain recently discharged patient comes often misses the dialysis gets a dialysis with the fluid overload denies fever denies chills no chest pain no shortness of breath Present on Admission - Present on Admission Any Indicators Present on Admission: No Past Patient History - Infectious Disease Hx of Infectious Diseases: None - Past Medical History & Family History Past Medical History?: Yes - Past Social History Smoking Status: Never Smoked - CARDIAC Hx Cardia Arrhythmia: Yes Hx Congestive Heart Failure: Yes Hx Hypercholesterolemia: Yes Hx Hypertension: Yes Hx Pacemaker: Yes (LEFT CHEST WALL) - PULMONARY Hx Asthma: Yes Hx Chronic Obstructive Pulmonary Disease (COPD): Yes - NEUROLOGICAL Hx Neurological Disorder: No - HEENT Hx HEENT Problems: Yes (SEE COMMENT) - RENAL Hx Chronic Kidney Disease: Yes Hx Kidney Stones: Yes - ENDOCRINE/METABOLIC Hx Endocrine Disorders: Yes Hx Diabetes Mellitus Type 2: Yes - HEMATOLOGICAL/ONCOLOGICAL Hx Anemia: Yes - INTEGUMENTARY Hx Dermatological Problems: No Other/Comment: Hx: herpes zoster - MUSCULOSKELETAL/RHEUMATOLOGICAL Hx Fractures: Yes - GASTROINTESTINAL Hx Diverticulitis: Yes - GENITOURINARY/GYNECOLOGICAL Hx Genitourinary Disorders: No - PSYCHIATRIC Hx Substance Use: No - SURGICAL HISTORY Hx Surgeries: Yes (SEE COMMENT) Hx Arteriovenous Shunt: Yes (LEFT ARM AV SHUNT) Other/Comment: pacemaker 2014, no additional information given by family and patient - ANESTHESIA Hx Anesthesia: Yes Hx Anesthesia Reactions: No (Denies) Hx Malignant Hyperthermia: No Meds Allergies/Adverse Reactions: Allergies Allergy/AdvReac Type Severity Reaction Status Date / Time oxycodone AdvReac Severe CONFUSION Verified 09/26/16 04:50 ferumoxides AdvReac REDNESS Verified 09/26/16 04:50 iron AdvReac REDNESS Verified 09/26/16 04:50 sodium ferric gluconate AdvReac REDNESS Verified 09/26/16 04:50 complex [From Ferrlecit] sucrose [From Ferrlecit] AdvReac REDNESS Verified 09/26/16 04:50 Physical Exam - Constitutional Appears: Well - Head Exam Head Exam: ATRAUMATIC, NORMAL INSPECTION, NORMOCEPHALIC - Eye Exam Eye Exam: EOMI, Normal appearance, PERRL Pupil Exam: NORMAL ACCOMODATION, PERRL - ENT Exam ENT Exam: Mucous Membranes Moist, Normal Exam - Neck Exam Neck exam: Positive for: Normal Inspection - Respiratory Exam Respiratory Exam: Decreased Breath Sounds - Cardiovascular Exam Cardiovascular Exam: REGULAR RHYTHM, +S1, +S2 - GI/Abdominal Exam GI & Abdominal Exam: Diminished Bowel Sounds, Soft - Rectal Exam Rectal Exam: Deferred Results - Vital Signs Recent Vital Signs: Last Vital Signs Temp 97.2 F L 09/26/16 16:00 Pulse 69 09/26/16 16:17 Resp 13 09/26/16 16:17 BP 70/36 L 09/26/16 16:17 Pulse Ox 100 09/26/16 16:17 - Labs Result Diagrams: 09/27/16 06:23 09/27/16 06:21 Labs: Laboratory Results - last 24 hr 09/26/16 09/26/16 09/26/16 06:19 06:29 11:54 D-Dimer, Quantitative 895 H POC Glucose (mg/dL) 117 H 198 H 09/26/16 09/26/16 14:53 16:19 D-Dimer, Quantitative POC Glucose (mg/dL) 133 H 99 Assessment & Plan - Assessment and Plan (Free Text) Plan: Follow up with the pulmonary follow-up with ID follow-up with the echo report discussed with the son in the morning patients keep on dropping the blood pressure C eventually transferred to the ICU Hemodialysis Started on the dopamine Follow-up with the embossing machine tender Patient issued the moxifloxacin today earlier S patient's came with the sore throat cough and the chest pain in the morning Will continue to monitor the patient's progress Prognosis guarded
--- NOTE | 2016-09-26 17:20 | CP.PCM.CON ---
<Rachel Joseph - Last Filed: 09/26/16 18:39> History of Present Illness - History of Present Illness History of Present Illness: Patient is a 76 year old female with a medical history of CAD, arrhythmias, pacemaker, CHF, Diabetes, HTN, and ESRD/dialysis, presented to the ED with complaints of malaise, weak, SOB, and chest pain. Patient is consulted for hypotension. While in the hospital, the patient became hypotensive and GENERAL SUPERVISOR was called. The patient's BP was 55/37 at the time of the event, and was given fluids, D5, and dopamine. Patient's potassium was 6.3 and EKG showed prolonged QT interval. BP increased to 84/46 and patient was transferred to ICU. The patient's granddaughter is present in the room and was translating. She has had shortness of breath, night sweats, and malaise for 1 week duration. Currently, the patient reports feeling short of breath, "like she is choking/drowning", weak, burning in her chest, and chills. She also reports a productive cough with white phlegm and diarrhea. Patient denies fevers, abdominal pain, nausea, vomiting, headache, leg pain, and hematochezia. PMD: Dr. Fernando Barry PMHx: CAD, arrhythmias, pacemaker, CHF, Diabetes, HTN, and ESRD/dialysis (TTS) SurgHx: pacemaker; paracentesis (08/2016) FamHx: Brothers- OR, Stroke, Stomach Cancer, and DM; Sister- Stomach cancer SocHx: denies tobaco, etoh, and illicit drug use. Allergies: oxycodone, ferumoxides, iron, ferrlecit (sodium ferric gluconate, sucrose) Medications: "unsure of the names- medications for DM and HTN" Review of Systems - Constitutional Constitutional: Chills, Fatigue, Malaise, Night Sweats, Weakness. absent: Fever , Headache - EENT Ears: Dizziness - Cardiovascular Cardiovascular: Chest Pain, Dyspnea, Lightheadedness - Respiratory Respiratory: Cough (with white sputum), Dyspnea, Chest Congestion - Gastrointestinal Gastrointestinal: Diarrhea. absent: Abdominal Pain, Constipation, Nausea, Vomiting - Neurological Neurological: Dizziness, Weakness - Endocrine Endocrine: Fatigue Past Patient History - Infectious Disease Hx of Infectious Diseases: None - Past Medical History & Family History Past Medical History?: Yes - Past Social History Smoking Status: Never Smoked - CARDIAC Hx Cardia Arrhythmia: Yes Hx Congestive Heart Failure: Yes Hx Hypercholesterolemia: Yes Hx Hypertension: Yes Hx Pacemaker: Yes (LEFT CHEST WALL) - PULMONARY Hx Asthma: Yes Hx Chronic Obstructive Pulmonary Disease (COPD): Yes - NEUROLOGICAL Hx Neurological Disorder: No - HEENT Hx HEENT Problems: Yes (SEE COMMENT) - RENAL Hx Chronic Kidney Disease: Yes Hx Kidney Stones: Yes - ENDOCRINE/METABOLIC Hx Endocrine Disorders: Yes Hx Diabetes Mellitus Type 2: Yes - HEMATOLOGICAL/ONCOLOGICAL Hx Anemia: Yes - INTEGUMENTARY Hx Dermatological Problems: No Other/Comment: Hx: herpes zoster - MUSCULOSKELETAL/RHEUMATOLOGICAL Hx Fractures: Yes - GASTROINTESTINAL Hx Diverticulitis: Yes - GENITOURINARY/GYNECOLOGICAL Hx Genitourinary Disorders: No - PSYCHIATRIC Hx Substance Use: No - SURGICAL HISTORY Hx Surgeries: Yes (SEE COMMENT) Hx Arteriovenous Shunt: Yes (LEFT ARM AV SHUNT) Other/Comment: pacemaker 2013, no additional information given by family and patient - ANESTHESIA Hx Anesthesia: Yes Hx Anesthesia Reactions: No (Denies) Hx Malignant Hyperthermia: No Meds Allergies/Adverse Reactions: Allergies Allergy/AdvReac Type Severity Reaction Status Date / Time oxycodone AdvReac Severe CONFUSION Verified 09/26/16 04:50 ferumoxides AdvReac REDNESS Verified 09/26/16 04:50 iron AdvReac REDNESS Verified 09/26/16 04:50 sodium ferric gluconate AdvReac REDNESS Verified 09/26/16 04:50 complex [From Ferrlecit] sucrose [From Ferrlecit] AdvReac REDNESS Verified 09/26/16 04:50 - Medications Medications: Current Medications Albuterol/Ipratropium (Duoneb 3 Mg/0.5 Mg (3 Ml) Ud) 3 ml INH RQ6 [facility] Last Admin: 09/26/16 13:35 Dose: 3 ml Diphenhydramine HCl (Benadryl) 25 mg PO TID PRN PRN Reason: Itching / Pruritus Enoxaparin Sodium (Lovenox) 30 mg SC DAILY [facility] Furosemide (Lasix) 40 mg PO DAILY [facility] Last Admin: 09/26/16 10:40 Dose: 40 mg Glipizide (Glucotrol) 2.5 mg PO BID [facility] Last Admin: 09/26/16 10:53 Dose: 2.5 mg Hydrocortisone (Cortizone 1% Cream) 0 gm TOP BID [facility] Last Admin: 09/26/16 10:54 Dose: Not Given Sodium Chloride (Sodium Chloride 0.9%) 250 mls @ 999 mls/hr IV .Q16M [facility] Dopamine HCl/Dextrose (Dopamine 400mg/250ml D5w) 400 mg in 250 mls @ 9.781 mls/ hr IV .Q24H PRN; Protocol; 5 MCG/KG/MIN PRN Reason: TITRATE PER MD ORDER Insulin Aspart (Novolog) 0 unit SC ACHS [facility] PRN Reason: Protocol Last Admin: 09/26/16 16:31 Dose: Not Given Loperamide HCl (Imodium) 2 mg PO TID PRN PRN Reason: Diarrhea Last Admin: 09/26/16 12:08 Dose: 2 mg Pantoprazole Sodium (Protonix Ec Tab) 40 mg PO DAILY [facility] Last Admin: 09/26/16 10:39 Dose: 40 mg Rosuvastatin Calcium (Crestor) 5 mg PO HS [facility] Sevelamer Carbonate (Renvela) 1,600 mg PO BID [facility] Last Admin: 09/26/16 10:55 Dose: Not Given Physical Exam - Head Exam Head Exam: ATRAUMATIC, NORMAL INSPECTION - Eye Exam Eye Exam: EOMI, Normal appearance - ENT Exam ENT Exam: Mucous Membranes Moist - Respiratory Exam Respiratory Exam: Decreased Breath Sounds. absent: Rhonchi, Wheezes - Cardiovascular Exam Cardiovascular Exam: +S1, +S2, Systolic Murmur - GI/Abdominal Exam GI & Abdominal Exam: Normal Bowel Sounds, Soft. absent: Tenderness - Extremities Exam Extremities exam: Positive for: pedal pulses present. Negative for: calf tenderness, pedal edema, tenderness - Neurological Exam Neurological exam: Alert, Oriented x3 - Psychiatric Exam Psychiatric exam: Normal Affect, Normal Mood - Skin Skin Exam: Dry, Intact, Normal Color, Warm Results - Vital Signs Recent Vital Signs: Last Vital Signs Temp 97.2 F L 09/26/16 16:00 Pulse 69 09/26/16 16:17 Resp 13 09/26/16 16:17 BP 70/36 L 09/26/16 16:17 Pulse Ox 100 09/26/16 16:17 - Labs Result Diagrams: 09/26/16 05:43 09/26/16 05:43 Labs: Laboratory Results - last 24 hr 09/26/16 09/26/1609/26/17 06:19 06:29 11:54 D-Dimer, Quantitative 895 H POC Glucose (mg/dL) 117 H 198 H 09/26/16 09/26/16 14:53 16:19 D-Dimer, Quantitative POC Glucose (mg/dL) 133 H 99 Assessment & Plan - Assessment and Plan (Free Text) Assessment: Patient was transferred to ICU for hypotension; (GENERAL SUPERVISOR: BP was 55/37 when GENERAL SUPERVISOR was called. At the end of GENERAL SUPERVISOR, BP 84/46.) Neuro: - AAOx3 Pulm: - SOB - Duonebs 3ml INH Q6 - CXR (09/26): diffuse increased interstitial lung marking; biapical pleural thickening with upper lobe granulomatous changes; mild to moderate venous congestions; patchy left basilar airspace opacity. - CXR repeat (09/26): no active pulmonary disease CV: - CXR (09/26): persistent severe cardiomegaly; mild pulmonary venous congestions and redistribution - Hx of CHF- continue Lasix 40mg PO daily - Hx of Pacemaker - Hx of HTN--> discontinued hypertension medications - GENERAL SUPERVISOR call for hypotension - Dopamine 5mics/kg given, D51amp, and NSx2 - EKG showed prolonged QT interval - K+ 6.3 - Transferred to ICU - Central line access- unable to obtain - CXR: f/u to r/o pneumothorax - Femoral line access - Levophed 4mg - Hx of hypercholesteremia- continue Crestor 5mg PO HS - ASA 81mg PO daily - Troponin x1: 0.0460 Endo: - Diabetic - Accuchecks, monitor daily blood glucose - ISS - Glipizide 2.5mg PO BID GI: - Hx of Diarrhea - C.Diff: f/u - Immodium 2mg PO TID PRN Heme: - Monitor H/H daily MSK: - no acute issues Renal: - ESRD, Dialysis TTS - Did not have dialysis today, 09/26, due to hypotension - Monitor BUN/Cr daily Prophylaxis: - DVT: Lovenox 30mg SC daily, SCDs - GI: Protonix 40mg PO daily - ASA 81mg PO daily <Jaskaran Orozco - Last Filed: 10/25/16 08:48> Results - Vital Signs Recent Vital Signs: Last Vital Signs Temp 99.9 F H 09/27/16 16:00 Pulse 107 H 09/27/16 19:24 Resp 14 09/27/16 19:24 BP 87/46 L 09/27/16 19:24 Pulse Ox 100 09/27/16 19:24 - Labs Result Diagrams: 09/27/16 06:23 09/27/16 06:21 Attending/Attestation - Attestation I have personally seen and examined this patient.: Yes I have fully participated in the care of the patient.: Yes I have reviewed all pertinent clinical information: Yes Notes (Text): 10/25/16 08:47 Patient seen and examined 76-year-old female transferred to ICU for hypotension Started on dopamine Fluid resuscitation Central line Rest of assessment and plan as per resident note
[2016-09-26] MEDS: Enoxaparin 30 mg Syringe SC SCH (18:47)
[2016-09-26] MEDS ORDERED: Sodium Chloride 0.9% 250 ML IV ONE (18:56)
--- NOTE | 2016-09-26 20:19 | CARD ---
APPROVED REPORT EKG Measurement Heart [id number] <Conclusion> Normal sinus rhythm Possible Left atrial enlargement Left axis deviation Incomplete right bundle branch block ST & T wave abnormality, consider lateral ischemia Prolonged QT Abnormal ECG
[2016-09-27] MEDS: Albuterol-Ipratrop 3 mg / 0.5 (3 ml) UD INH SCH ×4 (01:21→19:13)
[2016-09-27 06:35] LABS: BASO # 0.1 K/uL (0.0-0.2); BASO % 1.1 % (0.0-2.0); EOS # 0.2 K/uL (0.0-0.7); EOS % 1.8 % (0.0-4.0); HEMATOCRIT 36.8 % (34.0-47.0); LYMPH # 0.5 K/uL (1.0-4.3); LYMPH % 5.1 % (20.0-40.0); MEAN CELL VOLUME 89.3 fL (81.0-99.0); MEAN CORPUSCULAR HEMOGLOBIN 29.4 pg (27.0-31.0); MEAN CORPUSCULAR HGB CONC 32.9 g/dL (33.0-37.0); MEAN PLATELET VOLUME 9.6 fL (7.2-11.7); MONO # 1.2 K/uL (0.0-0.8); MONO % 11.7 % (0.0-10.0); PLATELET COUNT 278 K/uL (130-400); RED CELL DISTRIBUTION WIDTH 15.2 % (11.5-14.5); WHITE BLOOD COUNT 10.3 K/uL (4.8-10.8)
[2016-09-27 06:44] LABS: ALB/GLOB RATIO 0.9 (1.0-2.1); BILIRUBIN,TOTAL 0.6 mg/dL (0.2-1.3); CALCIUM 7.2 mg/dl (8.6-10.4); MAGNESIUM 1.7 mg/dL (1.6-2.3); PHOSPHOROUS 5.7 mg/dL (2.5-4.5); POTASSIUM 4.2 mmol/L (3.6-5.2); TOTAL PROTEIN 6.2 g/dL (6.3-8.3)
[2016-09-27] MEDS: (Novolog) Insulin Aspart, Recombinant 100 u/ml 10 ml vial SC SCH ×4 (08:14→22:48)
[2016-09-27 08:40] LABS: EOSINOPHIL 3 % (0-4); NEUTROPHIL 89 % (50-75); TOTAL CELLS COUNTED 100
[2016-09-27] MEDS ORDERED: Sodium Chloride 0.9% 250 ML IV ONE (08:43)
--- NOTE | 2016-09-27 08:46 | RAD ---
HISTORY: r/o pneumothorax COMPARISON: 09/26/2016 3:19 p.m. FINDINGS: LUNGS: No pulmonary infiltrate. Mild pulmonary venous congestion. PLEURA: No significant pleural effusion identified, no pneumothorax apparent. CARDIOVASCULAR: Moderate cardiomegaly. AICD noted. OSSEOUS STRUCTURES: No significant abnormalities. VISUALIZED UPPER ABDOMEN: Normal. OTHER FINDINGS: None. IMPRESSION: No infiltrate. Mild congestive change. Cardiomegaly with AICD. No pneumothorax
[2016-09-27] MEDS: Pantoprazole 40 mg EC Tab PO SCH (09:35)
[2016-09-27] MEDS: Enoxaparin 30 mg Syringe SC SCH (09:37)
[2016-09-27] MEDS: GlipiZIDE 2.5 mg Tab PO SCH ×2 (09:37→17:02)
[2016-09-27] MEDS: Hydrocortisone 1% Cream (30 GM) TOP SCH ×2 (09:47→17:02)
--- NOTE | 2016-09-27 10:18 | CP.PCM.CON ---
History of Present Illness - History of Present Illness History of Present Illness: The pt is a 76 year old female with severe non ischemic cardiomyopathy, pulmonary HTN and an ICD. The pat has severe aortic stenosis. She now presents with SOB, maliase, and shock. She is on IV epi and dopamine. ECg and TNI not c/ w ACS. Pt is alert today, feels "bad", looks comfortable. ECg shows NSR, NST, mildly long QT, cxr, no sig CHF, Review of Systems - Review of Systems All systems: reviewed and no additional remarkable complaints except (as above, otherwise negative) Past Patient History - Infectious Disease Hx of Infectious Diseases: None - Past Medical History & Family History Past Medical History?: Yes - Past Social History Smoking Status: Never Smoked - CARDIAC Hx Cardia Arrhythmia: Yes Hx Congestive Heart Failure: Yes Hx Hypercholesterolemia: Yes Hx Hypertension: Yes Hx Pacemaker: Yes (LEFT CHEST WALL) - PULMONARY Hx Asthma: Yes Hx Chronic Obstructive Pulmonary Disease (COPD): Yes - NEUROLOGICAL Hx Neurological Disorder: No - HEENT Hx HEENT Problems: Yes (SEE COMMENT) - RENAL Hx Chronic Kidney Disease: Yes Hx Kidney Stones: Yes - ENDOCRINE/METABOLIC Hx Endocrine Disorders: Yes Hx Diabetes Mellitus Type 2: Yes - HEMATOLOGICAL/ONCOLOGICAL Hx Anemia: Yes - INTEGUMENTARY Hx Dermatological Problems: No Other/Comment: Hx: herpes zoster - MUSCULOSKELETAL/RHEUMATOLOGICAL Hx Fractures: Yes - GASTROINTESTINAL Hx Diverticulitis: Yes - GENITOURINARY/GYNECOLOGICAL Hx Genitourinary Disorders: No - PSYCHIATRIC Hx Substance Use: No - SURGICAL HISTORY Hx Surgeries: Yes (SEE COMMENT) Hx Arteriovenous Shunt: Yes (LEFT ARM AV SHUNT) Other/Comment: pacemaker 2013, no additional information given by family and patient - ANESTHESIA Hx Anesthesia: Yes Hx Anesthesia Reactions: No (Denies) Hx Malignant Hyperthermia: No Meds Allergies/Adverse Reactions: Allergies Allergy/AdvReac Type Severity Reaction Status Date / Time oxycodone AdvReac Severe CONFUSION Verified 09/26/16 04:50 ferumoxides AdvReac REDNESS Verified 09/26/16 04:50 iron AdvReac REDNESS Verified 09/26/16 04:50 sodium ferric gluconate AdvReac REDNESS Verified 09/26/16 04:50 complex [From Ferrlecit] sucrose [From Ferrlecit] AdvReac REDNESS Verified 09/26/16 04:50 - Medications Medications: Current Medications Albuterol/Ipratropium (Duoneb 3 Mg/0.5 Mg (3 Ml) Ud) 3 ml INH RQ6 [facility] Last Admin: 09/27/16 07:19 Dose: 3 ml Diphenhydramine HCl (Benadryl) 25 mg PO TID PRN PRN Reason: Itching / Pruritus Enoxaparin Sodium (Lovenox) 30 mg SC DAILY [facility] Last Admin: 09/27/16 09:37 Dose: 30 mg Glipizide (Glucotrol) 2.5 mg PO BID [facility] Last Admin: 09/27/16 09:37 Dose: 2.5 mg Hydrocortisone (Cortizone 1% Cream) 0 gm TOP BID [facility] Last Admin: 09/27/16 09:47 Dose: 1 appl Dopamine HCl/Dextrose (Dopamine 400mg/250ml D5w) 400 mg in 250 mls @ 9.781 mls/ hr IV .Q24H PRN; Protocol; 5 MCG/KG/MIN PRN Reason: TITRATE PER MD ORDER Last Titration: 09/26/16 23:00 Dose: 0 mcg/kg/min, 0 mls/hr Norepinephrine Bitartrate 4 mg (/ Sodium Chloride) 254 mls @ 15.24 mls/hr IV .[id number] PRN; Protocol; 4 MCG/MIN PRN Reason: TITRATE PER MD ORDER Last Titration: 09/27/16 08:45 Dose: 0 mcg/min, 0 mls/hr Norepinephrine Bitartrate 8 mg (/ Sodium Chloride) 258 mls @ 7.74 mls/hr IV .Q24H PRN; Protocol; 4 MCG/MIN PRN Reason: TITRATE PER MD ORDER Last Titration: 09/27/16 09:27 Dose: 18 mcg/min, 34.83 mls/hr Insulin Aspart (Novolog) 0 unit SC ACHS [facility] PRN Reason: Protocol Last Admin: 09/27/16 08:14 Dose: 1 unit Loperamide HCl (Imodium) 2 mg PO TID PRN PRN Reason: Diarrhea Last Admin: 09/26/16 12:08 Dose: 2 mg Pantoprazole Sodium (Protonix Ec Tab) 40 mg PO DAILY [facility] Last Admin: 09/27/16 09:35 Dose: 40 mg Rosuvastatin Calcium (Crestor) 5 mg PO HS [facility] Last Admin: 09/26/16 21:41 Dose: 5 mg Sevelamer Carbonate (Renvela) 1,600 mg PO BID [facility] Last Admin: 09/27/16 09:36 Dose: 1,600 mg Physical Exam - Constitutional Appears: Older Than Stated Age - Head Exam Head Exam: ATRAUMATIC - Eye Exam Eye Exam: EOMI - ENT Exam ENT Exam: Mucous Membranes Moist - Neck Exam Neck exam: Positive for: Full Rom - Respiratory Exam Respiratory Exam: Clear to Auscultation Bilateral - Cardiovascular Exam Cardiovascular Exam: REGULAR RHYTHM (2.6 sm aortic region) - GI/Abdominal Exam GI & Abdominal Exam: Normal Bowel Sounds - Extremities Exam Extremities exam: Positive for: normal inspection - Back Exam Back exam: NORMAL INSPECTION - Neurological Exam Neurological exam: Oriented x3 - Psychiatric Exam Psychiatric exam: Normal Affect Results - Vital Signs Recent Vital Signs: Last Vital Signs Temp 97.4 F L 09/27/16 08:00 Pulse 87 09/27/16 09:23 Resp 22 09/27/16 09:23 BP 95/53 L 09/27/16 09:23 Pulse Ox 100 09/27/16 09:23 - Labs Result Diagrams: 09/27/16 06:23 09/27/16 06:21 Labs: Laboratory Results - last 24 hr 09/26/16 09/26/16 09/26/16 11:54 14:53 16:19 WBC RBC Hgb Hct MCV MCH MCHC RDW Plt Count MPV Neut % (Auto) Lymph % (Auto) Mayes % (Auto) Eos % (Auto) Baso % (Auto) Neut # Lymph # Mayes # Eos # Baso # Neutrophils % (Manual) Lymphocytes % (Manual) Monocytes % (Manual) Eosinophils % (Manual) Platelet Estimate Polychromasia Hypochromasia (manual) Anisocytosis (manual) Target Cells Ovalocytes Kaushik Cells Sodium Potassium Chloride Carbon Dioxide Anion Gap BUN Creatinine Est GFR ( Amer) Est GFR (Non-Af Amer) POC Glucose (mg/dL) 198 H 133 H 99 Random Glucose Calcium Phosphorus Magnesium Total Bilirubin AST ALT Alkaline Phosphatase Total Creatine Kinase CK-MB (Mass) Troponin I, Quant Total Protein Albumin Globulin Albumin/Globulin Ratio 09/26/16 09/26/16 09/27/16 20:53 21:25 06:21 WBC RBC Hgb Hct MCV MCH MCHC RDW Plt Count MPV Neut % (Auto) Lymph % (Auto) Mayes % (Auto) Eos % (Auto) Baso % (Auto) Neut # Lymph # Mayes # Eos # Baso # Neutrophils % (Manual) Lymphocytes % (Manual) Monocytes % (Manual) Eosinophils % (Manual) Platelet Estimate Polychromasia Hypochromasia (manual) Anisocytosis (manual) Target Cells Ovalocytes Kaushik Cells Sodium 136 Potassium 4.2 Chloride 96 L Carbon Dioxide 25 Anion Gap 19 BUN 22 H Creatinine 4.9 H Est GFR ( Amer) 10 Est GFR (Non-Af Amer) 9 POC Glucose (mg/dL) 139 H Random Glucose 181 H Calcium 7.2 L Phosphorus 5.7 H Magnesium 1.7 Total Bilirubin 0.6 AST 17 ALT 18 Alkaline Phosphatase 137 H Total Creatine Kinase 87 79 CK-MB (Mass) 1.99 1.58 Troponin I, Quant 0.0320 0.0540 Total Protein 6.2 L Albumin 2.9 L Globulin 3.3 Albumin/Globulin Ratio 0.9 L 09/27/16 09/27/16 06:23 07:32 WBC 10.3 RBC 4.12 Hgb 12.1 Hct 36.8 MCV 89.3 MCH 29.4 MCHC 32.9 L RDW 15.2 H Plt Count 278 MPV 9.6 Neut % (Auto) 80.3 H Lymph % (Auto) 5.1 L Mayes % (Auto) 11.7 H Eos % (Auto) 1.8 Baso % (Auto) 1.1 Neut # 8.3 H Lymph # 0.5 L Mayes # 1.2 H Eos # 0.2 Baso # 0.1 Neutrophils % (Manual) 89 H Lymphocytes % (Manual) 2 L Monocytes % (Manual) 6 Eosinophils % (Manual) 3 Platelet Estimate Normal Polychromasia Slight Hypochromasia (manual) Slight Anisocytosis (manual) Slight Target Cells Slight Ovalocytes Slight Kaushik Cells Slight Sodium Potassium Chloride Carbon Dioxide Anion Gap BUN Creatinine Est GFR ( Amer) Est GFR (Non-Af Amer) POC Glucose (mg/dL) 165 H Random Glucose Calcium Phosphorus Magnesium Total Bilirubin AST ALT Alkaline Phosphatase Total Creatine Kinase CK-MB (Mass) Troponin I, Quant Total Protein Albumin Globulin Albumin/Globulin Ratio - EKG Data EKG Interpreted by: Myself (as above) Assessment & Plan - Assessment and Plan (Free Text) Assessment: 1. Pt is in shock, very possible pump failure related to severe cardiomyopathy and severe . Pt saw Dr Leslie for evaluation for tavr in 2016, dobutamine stress echo was advised, and pt did not have it. Will discuss options with Dr Fisher for pt. Options include palliative balloon aortic valvuloplasty as a bridge to TAVR or emergent TAVR. Will follow.
--- NOTE | 2016-09-27 10:43 | RAD ---
HISTORY: Shortness of breath COMPARISON: 09/26/2016. FINDINGS: LUNGS: The lungs are well inflated. There is persistent mild pulmonary venous congestion. No focal consolidation. PLEURA: No significant pleural effusion identified, no pneumothorax apparent. CARDIOVASCULAR: There is moderate cardiomegaly. There is stable position of a left-sided AICD. Atherosclerotic aortic arch calcifications are present. OSSEOUS STRUCTURES: There is an old deformity in the right proximal humerus. VISUALIZED UPPER ABDOMEN: Normal. OTHER FINDINGS: None. IMPRESSION: Persistent moderate cardiomegaly and mild pulmonary venous congestion.
[2016-09-27 10:57] LABS: CARBOXYHEMOGLOBIN 1.3 % (0.5-1.5); DRAW SITE LINE; HHB 36.6 % (0.0-5.0); METHEMOGLOBIN 1.1 % (0.0-3.0)
--- NOTE | 2016-09-27 11:54 | CP.PCM.PN ---
Subjective - Date & Time of Evaluation Date of Evaluation: 09/27/16 Time of Evaluation: 15:00 - Subjective Subjective: clinically same Objective - Vital Signs/Intake and Output Vital Signs (last 24 hours): Temp Pulse Resp BP Pulse Ox 97.4 F L 86 29 H 94/50 L 99 09/27/16 08:00 09/27/16 11:00 09/27/16 11:00 09/27/16 10:23 09/27/16 11:00 Intake and Output: 09/27/16 09/27/16 06:59 18:59 Intake Total 1381.8 828.6 Output Total 0 0 Balance 1381.8 828.6 - Medications Medications: Current Medications Albuterol/Ipratropium (Duoneb 3 Mg/0.5 Mg (3 Ml) Ud) 3 ml INH RQ6 [facility] Last Admin: 09/27/16 07:19 Dose: 3 ml Diphenhydramine HCl (Benadryl) 25 mg PO TID PRN PRN Reason: Itching / Pruritus Enoxaparin Sodium (Lovenox) 30 mg SC DAILY [facility] Last Admin: 09/27/16 09:37 Dose: 30 mg Glipizide (Glucotrol) 2.5 mg PO BID [facility] Last Admin: 09/27/16 09:37 Dose: 2.5 mg Hydrocortisone (Cortizone 1% Cream) 0 gm TOP BID [facility] Last Admin: 09/27/16 09:47 Dose: 1 appl Dopamine HCl/Dextrose (Dopamine 400mg/250ml D5w) 400 mg in 250 mls @ 9.781 mls/ hr IV .Q24H PRN; Protocol; 5 MCG/KG/MIN PRN Reason: TITRATE PER MD ORDER Last Titration: 09/26/16 23:00 Dose: 0 mcg/kg/min, 0 mls/hr Norepinephrine Bitartrate 4 mg (/ Sodium Chloride) 254 mls @ 15.24 mls/hr IV .[id number] PRN; Protocol; 4 MCG/MIN PRN Reason: TITRATE PER MD ORDER Last Titration: 09/27/16 08:45 Dose: 0 mcg/min, 0 mls/hr Norepinephrine Bitartrate 8 mg (/ Sodium Chloride) 258 mls @ 7.74 mls/hr IV .Q24H PRN; Protocol; 4 MCG/MIN PRN Reason: TITRATE PER MD ORDER Last Titration: 09/27/16 09:27 Dose: 18 mcg/min, 34.83 mls/hr Insulin Aspart (Novolog) 0 unit SC ACHS [facility] PRN Reason: Protocol Last Admin: 09/27/16 11:23 Dose: 2 unit Loperamide HCl (Imodium) 2 mg PO TID PRN PRN Reason: Diarrhea Last Admin: 09/26/16 12:08 Dose: 2 mg Pantoprazole Sodium (Protonix Ec Tab) 40 mg PO DAILY [facility] Last Admin: 09/27/16 09:35 Dose: 40 mg Rosuvastatin Calcium (Crestor) 5 mg PO HS [facility] Last Admin: 09/26/16 21:41 Dose: 5 mg Sevelamer Carbonate (Renvela) 1,600 mg PO BID [facility] Last Admin: 09/27/16 09:36 Dose: 1,600 mg - Labs Labs: 09/27/16 06:23 09/27/16 06:21 - Constitutional Appears: Well - Head Exam Head Exam: ATRAUMATIC, NORMAL INSPECTION, NORMOCEPHALIC - Eye Exam Eye Exam: EOMI, Normal appearance, PERRL Pupil Exam: NORMAL ACCOMODATION, PERRL - ENT Exam ENT Exam: Mucous Membranes Moist, Normal Exam - Neck Exam Neck Exam: Full ROM, Normal Inspection. absent: Lymphadenopathy - Respiratory Exam Respiratory Exam: Decreased Breath Sounds - Cardiovascular Exam Cardiovascular Exam: REGULAR RHYTHM, +S1, +S2 - GI/Abdominal Exam GI & Abdominal Exam: Soft, Diminished Bowel Sounds - Rectal Exam Rectal Exam: Deferred Assessment and Plan (1) Bronchitis Status: Acute (2) Chest pain Status: Acute (3) ESRD (end stage renal disease) on dialysis Status: Chronic (4) Abdominal pain Status: Acute (5) Abdominal wall pain Status: Acute (6) Acute on chronic systolic congestive heart failure Status: Acute (7) Anasarca Status: Acute (8) Ascites Status: Acute (9) Ascites, malignant Status: Acute (10) Bronchitis, acute Status: Acute (11) CAD (coronary artery disease) Status: Acute (12) CHF (congestive heart failure) Status: Acute (13) COPD (chronic obstructive pulmonary disease) Status: Acute (14) Chest pain Status: Acute (15) Cirrhosis Status: Acute (16) Congestive heart failure with cardiomyopathy Status: Acute (17) Contusion of foot, left Status: Acute (18) Deep vein thrombosis (DVT) Status: Acute (19) Dialysis patient Status: Acute (20) Diarrhea Status: Acute (21) Diarrhea Status: Acute (22) Dyspnea Status: Acute (23) Dyspnea Status: Acute (24) ESRD (end stage renal disease) Status: Acute (25) ESRD needing dialysis Status: Acute (26) Fluid overload Status: Acute (27) Foot pain Status: Acute (28) HLD (hyperlipidemia) Status: Acute (29) Hepatorenal syndrome Status: Acute (30) Herpes zoster Status: Acute (31) Humerus fracture Status: Acute (32) Hyperkalemia Status: Acute (33) Hypoglycemia Status: Acute (34) Incarcerated umbilical hernia Status: Acute (35) Increased ammonia level Status: Acute (36) Ischemic cardiomyopathy Status: Acute (37) Knee contusion Status: Acute (38) Lethargy Status: Acute (39) Liver disease Status: Acute (40) Nausea Status: Acute (41) Other ascites Status: Acute (42) Patient left without being seen Status: Acute (43) Poorly controlled ascites Status: Acute (44) Pre-operative cardiovascular examination, LVEF < 35% Status: Acute (45) Prophylactic measure Status: Acute (46) Pulmonary HTN Status: Acute (47) Renal failure Status: Acute (48) Renal insufficiency Status: Acute (49) Shortness of breath Status: Acute (50) Small bowel obstruction Status: Acute (51) Upper respiratory infection Status: Acute (52) Ventral hernia Status: Acute (53) Vomiting Status: Acute (54) Wrist contusion Status: Acute (55) Chronic congestive heart failure Status: Chronic (56) Chronic renal disease Status: Chronic (57) 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 Farmer patient is a severe aortic stenosis needs T AVR For transfer board for 2 at [facility] Continue same Hemodialysis ordered As ordered
--- NOTE | 2016-09-27 12:57 | CP.CCUPN ---
<Rachel JosephRobyn - Last Filed: 09/27/16 12:44> CCU Subjective - Physician Review Subjective (Free Text): Patient was seen and examined at bedside in the morning. She was in no acute distress and sleeping comfortably. Patient reports having a sore throat, burning in her chest, diarrhea, and a cough with white sputum. Patient denies having chest pain, abdominal pain, palpitations, nausea, vomiting, fevers, and dizziness. 09/27/16 13:00 CCU Objective - Vital Signs / Intake & Output Vital Signs (Last 4 hours): Vital Signs Pulse Resp BP Pulse Ox 09/27/16 12:23 94/44 L 09/27/16 12:22 85 26 H 92 L 09/27/16 12:00 86 18 91 L 09/27/16 11:23 87 25 H 96/52 L 92 L 09/27/16 11:00 86 29 H 99 09/27/16 10:23 86 25 H 94/50 L 100 09/27/16 10:00 86 27 H 99 09/27/16 09:23 87 22 95/53 L 100 09/27/16 09:01 88 25 H 81/38 L 97 09/27/16 09:00 88 24 98 Intake and Output (Last 8hrs): Intake & Output 09/26/16 09/27/16 09/27/16 22:59 06:59 14:59 Intake Total 702.0 704.4 1031.5 Output Total 0 0 0 Balance 702.0 704.4 1031.5 Weight 47 lb 14.4 oz 105 lb 0.6 oz Intake: IV 10 254 137 Intake, IV Amount 492.0 450.4 494.5 Right Distal Port Femoral 250 Right Forearm 24.6 Right Medial Port Femoral 93.9 450.4 244.5 Right Proximal Port 123.5 0 250 Femoral Oral 200 400 Output: Urine 0 0 0 Urine, Voided 0 0 0 Stool 0 0 0 - Physical Exam Head: Positive for: Atraumatic, Normocephalic Extroacular Muscles: Positive for: EOMI Conjunctiva: Positive for: Normal Mouth: Positive for: Moist Mucous Membranes Respiratory/Chest: Positive for: Clear to Auscultation, Decreased Breath Sounds. Negative for: Wheezes, Rhonchi Cardiovascular: Positive for: Murmurs, Normal S1, S2 Abdomen: Positive for: Normal Bowel Sounds. Negative for: Tenderness Upper Extremity: Positive for: Normal Inspection. Negative for: Cyanosis, Edema Lower Extremity: Positive for: Normal Inspection. Negative for: Edema, CALF TENDERNESS Skin: Positive for: Warm, Dry, Normal Color Psychiatric: Positive for: Alert, Oriented x 3 - Medications Active Medications: Active Medications Generic Name Dose Route Start Last Admin Trade Name Freq PRN Reason Stop Dose Admin Albuterol/Ipratropium 3 ml 09/26/16 08:00 09/27/16 07:19 Duoneb 3 Mg/0.5 Mg (3 Ml) Ud INH 3 ml RQ6 CARITO Administration Diphenhydramine HCl 25 mg 09/26/16 06:24 Benadryl PO TID PRN Itching / Pruritus Enoxaparin Sodium 30 mg 09/26/16 10:00 09/27/16 09:37 Lovenox SC 30 mg DAILY CARITO Administration Glipizide 2.5 mg 09/26/16 10:00 09/27/16 09:37 Glucotrol PO 2.5 mg BID CARITO Administration Hydrocortisone 0 gm 09/26/16 10:00 09/27/16 09:47 Cortizone 1% Cream TOP 1 appl BID CARITO Administration Dopamine HCl/Dextrose 400 mg in 250 mls @ 9.781 mls/hr 09/26/16 15:20 23:00 Dopamine 400mg/250ml D5w IV 0 mcg/kg/min .Q24H PRN 0 mls/hr TITRATE PER MD ORDER Titration Protocol 5 MCG/KG/MIN Norepinephrine Bitartrate 4 mg 254 mls @ 15.24 mls/hr 09/26/16 18:15 08:45 / Sodium Chloride IV 0 mcg/min .[id number] PRN 0 mls/hr TITRATE PER MD ORDER Titration Protocol 4 MCG/MIN Norepinephrine Bitartrate 8 mg 258 mls @ 7.74 mls/hr 09/27/16 06:27 09/27/16 09:27 / Sodium Chloride IV 18 mcg/min .Q24H PRN 34.83 mls/hr TITRATE PER MD ORDER Titration Protocol 4 MCG/MIN Insulin Aspart 0 unit 09/26/16 11:30 09/27/16 11:23 Novolog SC 2 unit ACHS CARITO Administration Protocol Loperamide HCl 2 mg 09/26/16 06:45 09/26/16 12:08 Imodium PO 2 mg TID PRN Administration Diarrhea Pantoprazole Sodium 40 mg 09/26/16 10:00 09/27/16 09:35 Protonix Ec Tab PO 40 mg DAILY CARITO Administration Rosuvastatin Calcium 5 mg 09/26/16 22:00 09/26/16 21:41 Crestor PO 5 mg HS CARITO Administration Sevelamer Carbonate 1,600 mg 09/26/16 10:00 09/27/16 09:36 Renvela PO 1,600 mg BID CARITO Administration - Patient Studies Lab Studies: Lab Studies 09/27/16 09/27/16 09/27/16 Range/Units 11:10 10:51 07:32 WBC (4.8-10.8) K/uL RBC (3.80-5.20) Mil/uL Hgb (11.0-16.0) g/dL Hct (34.0-47.0) % MCV (81.0-99.0) fL MCH (27.0-31.0) pg MCHC (33.0-37.0) g/dL RDW (11.5-14.5) % Plt Count (130-400) K/uL MPV (7.2-11.7) fL Neut % (Auto) (50.0-75.0) % Lymph % (Auto) (20.0-40.0) % [place] % (Auto) (0.0-10.0) % Eos % (Auto) (0.0-4.0) % Baso % (Auto) (0.0-2.0) % Neut # (1.8-7.0) K/uL Lymph # (1.0-4.3) K/uL [place] # (0.0-0.8) K/uL Eos # (0.0-0.7) K/uL Baso # (0.0-0.2) K/uL Neutrophils % (Manual) (50-75) % Lymphocytes % (Manual) (20-40) % Monocytes % (Manual) (0-10) % Eosinophils % (Manual) (0-4) % Platelet Estimate (NORMAL) Polychromasia Hypochromasia (manual) Anisocytosis (manual) Target Cells Ovalocytes Kaushik Cells Puncture Site Line pCO2 52 H (35-45) mm/Hg pO2 30 L* (80-100) mm/Hg HCO3 24.6 (21-28) mmol/L ABG pH 7.33 L (7.35-7.45) ABG Total CO2 29.0 H (22-28) mmol/L ABG O2 Saturation 62.5 L (95-98) % ABG Base Excess 0.7 (-2.0-3.0) mmol/L ABG Hemoglobin 12.0 (11.7-17.4) g/dL ABG Carboxyhemoglobin 1.3 (0.5-1.5) % POC ABG HHb (Measured) 36.6 H (0.0-5.0) % ABG Methemoglobin 1.1 (0.0-3.0) % Andrei Test Na Hgb O2 Saturation 61.0 L (95.0-98.0) % Liter Flow 3.0 Blood Gas Comments Tlc placement Crit Value Called To Dr espinoza Crit Value Called By Jyoti beckett carton stamper Crit Value Read Back Y Blood Gas Notified Time 1056 Sodium (132-148) mmol/L Potassium (3.6-5.2) mmol/L Chloride (98-107) mmol/L Carbon Dioxide (22-30) mmol/L Anion Gap (10-20) BUN (7-17) mg/dL Creatinine (0.7-1.2) MG/DL Est GFR ( Amer) Est GFR (Non-Af Amer) POC Glucose (mg/dL) 200 H 165 H (65-110) mg/dL Random Glucose (65-105) mg/dL Calcium (8.6-10.4) mg/dl Phosphorus (2.5-4.5) mg/dL Magnesium (1.6-2.3) mg/dL Total Bilirubin (0.2-1.3) mg/dL AST (14-36) U/L ALT (9-52) U/L Alkaline Phosphatase (38-126) U/L Total Creatine Kinase (30-135) U/L CK-MB (Mass) (0.0-3.38) ng/mL Troponin I, Quant (0.00-0.120) ng/mL Total Protein (6.3-8.3) g/dL Albumin (3.5-5.0) g/dL Globulin (2.2-3.9) gm/dL Albumin/Globulin Ratio (1.0-2.1) 09/27/16 09/27/16 09/26/16 Range/Units 06:23 06:21 21:25 WBC 10.3 (4.8-10.8) K/uL RBC 4.12 (3.80-5.20) Mil/uL Hgb 12.1 (11.0-16.0) g/dL Hct 36.8 (34.0-47.0) % MCV 89.3 (81.0-99.0) fL MCH 29.4 (27.0-31.0) pg MCHC 32.9 L (33.0-37.0) g/dL RDW 15.2 H (11.5-14.5) % Plt Count 278 (130-400) K/uL MPV 9.6 (7.2-11.7) fL Neut % (Auto) 80.3 H (50.0-75.0) % Lymph % (Auto) 5.1 L (20.0-40.0) % [place] % (Auto) 11.7 H (0.0-10.0) % Eos % (Auto) 1.8 (0.0-4.0) % Baso % (Auto) 1.1 (0.0-2.0) % Neut # 8.3 H (1.8-7.0) K/uL Lymph # 0.5 L (1.0-4.3) K/uL [place] # 1.2 H (0.0-0.8) K/uL Eos # 0.2 (0.0-0.7) K/uL Baso # 0.1 (0.0-0.2) K/uL Neutrophils % (Manual) 89 H (50-75) % Lymphocytes % (Manual) 2 L (20-40) % Monocytes % (Manual) 6 (0-10) % Eosinophils % (Manual) 3 (0-4) % Platelet Estimate Normal (NORMAL) Polychromasia Slight Hypochromasia (manual) Slight Anisocytosis (manual) Slight Target Cells Slight Ovalocytes Slight [place] Cells Slight Puncture Site pCO2 (35-45) mm/Hg pO2 (80-100) mm/Hg HCO3 (21-28) mmol/L ABG pH (7.35-7.45) ABG Total CO2 (22-28) mmol/L ABG O2 Saturation (95-98) % ABG Base Excess (-2.0-3.0) mmol/L ABG Hemoglobin (11.7-17.4) g/dL ABG Carboxyhemoglobin (0.5-1.5) % POC ABG HHb (Measured) (0.0-5.0) % ABG Methemoglobin (0.0-3.0) % Andrei Test Hgb O2 Saturation (95.0-98.0) % Liter Flow Blood Gas Comments Crit Value Called To Crit Value Called By Crit Value Read Back Blood Gas Notified Time Sodium 136 (132-148) mmol/L Potassium 4.2 (3.6-5.2) mmol/L Chloride 96 L (98-107) mmol/L Carbon Dioxide 25 (22-30) mmol/L Anion Gap 19 (10-20) BUN 22 H (7-17) mg/dL Creatinine 4.9 H (0.7-1.2) MG/DL Est GFR ( Amer) 10 Est GFR (Non-Af Amer) 9 POC Glucose (mg/dL) 139 H (65-110) mg/dL Random Glucose 181 H (65-105) mg/dL Calcium 7.2 L (8.6-10.4) mg/dl Phosphorus 5.7 H (2.5-4.5) mg/dL Magnesium 1.7 (1.6-2.3) mg/dL Total Bilirubin 0.6 (0.2-1.3) mg/dL AST 17 (14-36) U/L ALT 18 (9-52) U/L Alkaline Phosphatase 137 H (38-126) U/L Total Creatine Kinase 79 (30-135) U/L CK-MB (Mass) 1.58 (0.0-3.38) ng/mL Troponin I, Quant 0.0540 (0.00-0.120) ng/mL Total Protein 6.2 L (6.3-8.3) g/dL Albumin 2.9 L (3.5-5.0) g/dL Globulin 3.3 (2.2-3.9) gm/dL Albumin/Globulin Ratio 0.9 L (1.0-2.1) 09/26/16 09/26/16 Range/Units 20:53 16:19 WBC (4.8-10.8) K/uL RBC (3.80-5.20) Mil/uL Hgb (11.0-16.0) g/dL Hct (34.0-47.0) % MCV (81.0-99.0) fL MCH (27.0-31.0) pg MCHC (33.0-37.0) g/dL RDW (11.5-14.5) % Plt Count (130-400) K/uL MPV (7.2-11.7) fL Neut % (Auto) (50.0-75.0) % Lymph % (Auto) (20.0-40.0) % [place] % (Auto) (0.0-10.0) % Eos % (Auto) (0.0-4.0) % Baso % (Auto) (0.0-2.0) % Neut # (1.8-7.0) K/uL Lymph # (1.0-4.3) K/uL [place] # (0.0-0.8) K/uL Eos # (0.0-0.7) K/uL Baso # (0.0-0.2) K/uL Neutrophils % (Manual) (50-75) % Lymphocytes % (Manual) (20-40) % Monocytes % (Manual) (0-10) % Eosinophils % (Manual) (0-4) % Platelet Estimate (NORMAL) Polychromasia Hypochromasia (manual) Anisocytosis (manual) Target Cells Ovalocytes Kaushik Cells Puncture Site pCO2 (35-45) mm/Hg pO2 (80-100) mm/Hg HCO3 (21-28) mmol/L ABG pH (7.35-7.45) ABG Total CO2 (22-28) mmol/L ABG O2 Saturation (95-98) % ABG Base Excess (-2.0-3.0) mmol/L ABG Hemoglobin (11.7-17.4) g/dL ABG Carboxyhemoglobin (0.5-1.5) % POC ABG HHb (Measured) (0.0-5.0) % ABG Methemoglobin (0.0-3.0) % Andrei Test Hgb O2 Saturation (95.0-98.0) % Liter Flow Blood Gas Comments Crit Value Called To Crit Value Called By Crit Value Read Back Blood Gas Notified Time Sodium (132-148) mmol/L Potassium (3.6-5.2) mmol/L Chloride (98-107) mmol/L Carbon Dioxide (22-30) mmol/L Anion Gap (10-20) BUN (7-17) mg/dL Creatinine (0.7-1.2) MG/DL Est GFR ( Amer) Est GFR (Non-Af Amer) POC Glucose (mg/dL) 99 (65-110) mg/dL Random Glucose (65-105) mg/dL Calcium (8.6-10.4) mg/dl Phosphorus (2.5-4.5) mg/dL Magnesium (1.6-2.3) mg/dL Total Bilirubin (0.2-1.3) mg/dL AST (14-36) U/L ALT (9-52) U/L Alkaline Phosphatase (38-126) U/L Total Creatine Kinase 87 (30-135) U/L CK-MB (Mass) 1.99 (0.0-3.38) ng/mL Troponin I, Quant 0.0320 (0.00-0.120) ng/mL Total Protein (6.3-8.3) g/dL Albumin (3.5-5.0) g/dL Globulin (2.2-3.9) gm/dL Albumin/Globulin Ratio (1.0-2.1) Laboratory Results - last 24 hr 09/26/16 09/26/16 09/26/16 16:19 20:53 21:25 WBC RBC Hgb Hct MCV MCH MCHC RDW Plt Count MPV Neut % (Auto) Lymph % (Auto) [place] % (Auto) Eos % (Auto) Baso % (Auto) Neut # Lymph # [place] # Eos # Baso # Neutrophils % (Manual) Lymphocytes % (Manual) Monocytes % (Manual) Eosinophils % (Manual) Platelet Estimate Polychromasia Hypochromasia (manual) Anisocytosis (manual) Target Cells Ovalocytes Kaus[place] Cells Puncture Site pCO2 pO2 HCO3 ABG pH ABG Total CO2 ABG O2 Saturation ABG Base Excess ABG Hemoglobin ABG Carboxyhemoglobin POC ABG HHb (Measured) ABG Methemoglobin Andrei Test Hgb O2 Saturation Liter Flow Blood Gas Comments Crit Value Called To Crit Value Called By Crit Value Read Back Blood Gas Notified Time Sodium Potassium Chloride Carbon Dioxide Anion Gap BUN Creatinine Est GFR ( Amer) Est GFR (Non-Af Amer) POC Glucose (mg/dL) 99 139 H Random Glucose Calcium Phosphorus Magnesium Total Bilirubin AST ALT Alkaline Phosphatase Total Creatine Kinase 87 CK-MB (Mass) 1.99 Troponin I, Quant 0.0320 Total Protein Albumin Globulin Albumin/Globulin Ratio 09/27/16 09/27/16 09/27/16 06:21 06:23 07:32 WBC 10.3 RBC 4.12 Hgb 12.1 Hct 36.8 MCV 89.3 MCH 29.4 MCHC 32.9 L RDW 15.2 H Plt Count 278 MPV 9.6 Neut % (Auto) 80.3 H Lymph % (Auto) 5.1 L [place] % (Auto) 11.7 H Eos % (Auto) 1.8 Baso % (Auto) 1.1 Neut # 8.3 H Lymph # 0.5 L [place] # 1.2 H Eos # 0.2 Baso # 0.1 Neutrophils % (Manual) 89 H Lymphocytes % (Manual) 2 L Monocytes % (Manual) 6 Eosinophils % (Manual) 3 Platelet Estimate Normal Polychromasia Slight Hypochromasia (manual) Slight Anisocytosis (manual) Slight Target Cells Slight Ovalocytes Slight [place] Cells Slight Puncture Site pCO2 pO2 HCO3 ABG pH ABG Total CO2 ABG O2 Saturation ABG Base Excess ABG Hemoglobin ABG Carboxyhemoglobin POC ABG HHb (Measured) ABG Methemoglobin Andrei Test Hgb O2 Saturation Liter Flow Blood Gas Comments Crit Value Called To Crit Value Called By Crit Value Read Back Blood Gas Notified Time Sodium 136 Potassium 4.2 Chloride 96 L Carbon Dioxide 25 Anion Gap 19 BUN 22 H Creatinine 4.9 H Est GFR ( Amer) 10 Est GFR (Non-Af Amer) 9 POC Glucose (mg/dL) 165 H Random Glucose 181 H Calcium 7.2 L Phosphorus 5.7 H Magnesium 1.7 Total Bilirubin 0.6 AST 17 ALT 18 Alkaline Phosphatase 137 H Total Creatine Kinase 79 CK-MB (Mass) 1.58 Troponin I, Quant 0.0540 Total Protein 6.2 L Albumin 2.9 L Globulin 3.3 Albumin/Globulin Ratio 0.9 L 09/27/16 09/27/16 10:51 11:10 WBC RBC Hgb Hct MCV MCH MCHC RDW Plt Count MPV Neut % (Auto) Lymph % (Auto) [place] % (Auto) Eos % (Auto) Baso % (Auto) Neut # Lymph # [place] # Eos # Baso # Neutrophils % (Manual) Lymphocytes % (Manual) Monocytes % (Manual) Eosinophils % (Manual) Platelet Estimate Polychromasia Hypochromasia (manual) Anisocytosis (manual) Target Cells Ovalocytes [place] Cells Puncture Site Line pCO2 52 H pO2 30 L* HCO3 24.6 ABG pH 7.33 L ABG Total CO2 29.0 H ABG O2 Saturation 62.5 L ABG Base Excess 0.7 ABG Hemoglobin 12.0 ABG Carboxyhemoglobin 1.3 POC ABG HHb (Measured) 36.6 H ABG Methemoglobin 1.1 Andrei Test Na Hgb O2 Saturation 61.0 L Liter Flow 3.0 Blood Gas Comments Tlc placement Crit Value Called To Dr espinoza Crit Value Called By Jyoti beckett carton stamper Crit Value Read Back Y Blood Gas Notified Time 1056 Sodium Potassium Chloride Carbon Dioxide Anion Gap BUN Creatinine Est GFR ( Amer) Est GFR (Non-Af Amer) POC Glucose (mg/dL) 200 H Random Glucose Calcium Phosphorus Magnesium Total Bilirubin AST ALT Alkaline Phosphatase Total Creatine Kinase CK-MB (Mass) Troponin I, Quant Total Protein Albumin Globulin Albumin/Globulin Ratio Fingerstick Blood Sugar Results: 139 Review of Systems - Constitutional Constitutional: absent: Fever - EENT Nose/Mouth/Throat: Sore Throat - Cardiovascular Cardiovascular: Dyspnea. absent: Chest Pain, Lightheadedness, Palpitations - Respiratory Respiratory: Cough, Dyspnea, Excessive Mucous Production (white) - Gastrointestinal Gastrointestinal: Diarrhea. absent: Abdominal Pain, Constipation, Nausea, Vomiting - Genitourinary Genitourinary: absent: Dysuria - Neurological Neurological: absent: Dizziness, Headaches Assessment/Plan - Assessment and Plan (Free Text) Assessment: Patient was transferred to ICU for hypotension; (BOARDINGHOUSE KEEPER: BP was 55/37 when BOARDINGHOUSE KEEPER was called. At the end of BOARDINGHOUSE KEEPER, BP 84/46.) Neuro: - AAOx3 Pulm: - SOB - Duonebs 3ml INH Q6 - CXR (09/26): diffuse increased interstitial lung marking; biapical pleural thickening with upper lobe granulomatous changes; mild to moderate venous congestions; patchy left basilar airspace opacity. - CXR repeat (09/26): no active pulmonary disease CV: - CXR (09/26): persistent severe cardiomegaly; mild pulmonary venous congestions - CXR (09/27): persistent moderate cardiomegaly and mild pulmonary venous congestion - Hx of CHF- continue Lasix 40mg PO daily - Hx of Pacemaker - Hx of HTN--> discontinued hypertension medications - BOARDINGHOUSE KEEPER call for hypotension on 09/26 - Dopamine 5mics/kg given, D51amp, and NSx2 - EKG showed prolonged QT interval - K+ 6.3 - Transferred to ICU - Central line access- unable to obtain - CXR: f/u to r/o pneumothorax - Femoral line access - Levophed 4mg - Levophed 8mg - Hx of hypercholesteremia- continue Crestor 5mg PO HS - ASA 81mg PO daily - Troponin x1: 0.0460 - 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 - ECHO 09/27: f/u Endo: - Diabetic - Accuchecks, monitor daily blood glucose - ISS - Glipizide 2.5mg PO BID GI: - Hx of Diarrhea - C.Diff: f/u - Immodium 2mg PO TID PRN Heme: - Monitor H/H daily MSK: - no acute issues Renal: - ESRD, Dialysis TTS - Received dialysis in the evening of 09/26 after patient was stable. - Monitor BUN/Cr daily Prophylaxis: - DVT: Lovenox 30mg SC daily, SCDs - GI: Protonix 40mg PO daily - ASA 81mg PO daily <Jaskaran Espinoza - Last Filed: 09/27/16 17:40> CCU Objective - Vital Signs / Intake & Output Vital Signs (Last 4 hours): Vital Signs Temp Pulse Resp BP Pulse Ox 09/27/16 16:56 111 H 22 90/50 L 95 09/27/16 16:00 99.9 F H 110 H 18 95 09/27/16 15:53 110 H 20 103/61 92 L 09/27/16 15:00 111 H 30 H 95 09/27/16 14:53 111 H 16 98/55 L 96 09/27/16 14:00 107 H 24 100 09/27/16 13:53 112 H 22 92/49 L Intake and Output (Last 8hrs): Intake & Output 09/27/16 09/27/16 09/27/16 06:59 14:59 22:59 Intake Total 704.4 1388.7 244 Output Total 0 0 Balance 704.4 1388.7 244 Weight 105 lb 0.6 oz Intake: IV 254 278 84 Intake, IV Amount 450.4 560.7 60 Right Medial Port Femoral 450.4 310.7 60 Right Proximal Port 0 250 Femoral Oral 550 100 Output: Urine 0 0 Urine, Voided 0 0 Stool 0 0 - Medications Active Medications: Active Medications Generic Name Dose Route Start Last Admin Trade Name Freq PRN Reason Stop Dose Admin Albuterol/Ipratropium 3 ml 09/26/16 08:00 09/27/16 13:53 Duoneb 3 Mg/0.5 Mg (3 Ml) Ud INH 3 ml RQ6 CARITO Administration Diphenhydramine HCl 25 mg 09/26/16 06:24 Benadryl PO TID PRN Itching / Pruritus Enoxaparin Sodium 30 mg 09/26/16 10:00 09/27/16 09:37 Lovenox SC 30 mg DAILY CARITO Administration Glipizide 2.5 mg 09/26/16 10:00 09/27/16 17:02 Glucotrol PO 2.5 mg BID CARITO Administration Hydrocortisone 0 gm 09/26/16 10:00 09/27/16 17:02 Cortizone 1% Cream TOP 1 appl BID CARITO Administration Dopamine HCl/Dextrose 400 mg in 250 mls @ 9.781 mls/hr 09/26/16 15:20 23:00 Dopamine 400mg/250ml D5w IV 0 mcg/kg/min .Q24H PRN 0 mls/hr TITRATE PER MD ORDER Titration Protocol 5 MCG/KG/MIN Norepinephrine Bitartrate 8 mg 258 mls @ 7.74 mls/hr 09/27/16 06:27 09/27/16 16:56 / Sodium Chloride IV 15 mcg/min .Q24H PRN 29.02 mls/hr TITRATE PER MD ORDER Administration Protocol 4 MCG/MIN Moxifloxacin HCl 400 mg in 250 mls @ 167 mls/hr 09/27/16 17:15 Avelox Iv 400mg/250ml Ns IVPB Q24H CARITO Insulin Aspart 0 unit 09/26/16 11:30 09/27/16 16:45 Novolog SC 3 unit ACHS CARITO Administration Protocol Loperamide HCl 2 mg 09/26/16 06:45 09/26/16 12:08 Imodium PO 2 mg TID PRN Administration Diarrhea Pantoprazole Sodium 40 mg 09/26/16 10:00 09/27/16 09:35 Protonix Ec Tab PO 40 mg DAILY CARITO Administration Rosuvastatin Calcium 5 mg 09/26/16 22:00 09/26/16 21:41 Crestor PO 5 mg HS CARITO Administration Sevelamer Carbonate 1,600 mg 09/26/16 10:00 09/27/16 17:05 Renvela PO Not Given BID CARITO - Patient Studies Lab Studies: Lab Studies 09/27/16 09/27/16 09/27/16 Range/Units 16:20 11:10 10:51 WBC (4.8-10.8) K/uL RBC (3.80-5.20) Mil/uL Hgb (11.0-16.0) g/dL Hct (34.0-47.0) % MCV (81.0-99.0) fL MCH (27.0-31.0) pg MCHC (33.0-37.0) g/dL RDW (11.5-14.5) % Plt Count (130-400) K/uL MPV (7.2-11.7) fL Neut % (Auto) (50.0-75.0) % Lymph % (Auto) (20.0-40.0) % [place] % (Auto) (0.0-10.0) % Eos % (Auto) (0.0-4.0) % Baso % (Auto) (0.0-2.0) % Neut # (1.8-7.0) K/uL Lymph # (1.0-4.3) K/uL [place] # (0.0-0.8) K/uL Eos # (0.0-0.7) K/uL Baso # (0.0-0.2) K/uL Neutrophils % (Manual) (50-75) % Lymphocytes % (Manual) (20-40) % Monocytes % (Manual) (0-10) % Eosinophils % (Manual) (0-4) % Platelet Estimate (NORMAL) Polychromasia Hypochromasia (manual) Anisocytosis (manual) Target Cells Ovalocytes [place]aus[place] Cells Puncture Site Line pCO2 52 H (35-45) mm/Hg pO2 30 L* (80-100) mm/Hg HCO3 24.6 (21-28) mmol/L ABG pH 7.33 L (7.35-7.45) ABG Total CO2 29.0 H (22-28) mmol/L ABG O2 Saturation 62.5 L (95-98) % ABG Base Excess 0.7 (-2.0-3.0) mmol/L ABG Hemoglobin 12.0 (11.7-17.4) g/dL ABG Carboxyhemoglobin 1.3 (0.5-1.5) % POC ABG HHb (Measured) 36.6 H (0.0-5.0) % ABG Methemoglobin 1.1 (0.0-3.0) % Andrei Test Na Hgb O2 Saturation 61.0 L (95.0-98.0) % Liter Flow 3.0 Blood Gas Comments Tlc placement Crit Value Called To Dr espinoza Crit Value Called By Jyoti beckett carton stamper Crit Value Read Back Y Blood Gas Notified Time 1056 Sodium (132-148) mmol/L Potassium (3.6-5.2) mmol/L Chloride (98-107) mmol/L Carbon Dioxide (22-30) mmol/L Anion Gap (10-20) BUN (7-17) mg/dL Creatinine (0.7-1.2) MG/DL Est GFR ( Amer) Est GFR (Non-Af Amer) POC Glucose (mg/dL) 268 H 200 H (65-110) mg/dL Random Glucose (65-105) mg/dL Calcium (8.6-10.4) mg/dl Phosphorus (2.5-4.5) mg/dL Magnesium (1.6-2.3) mg/dL Total Bilirubin (0.2-1.3) mg/dL AST (14-36) U/L ALT (9-52) U/L Alkaline Phosphatase (38-126) U/L Total Creatine Kinase (30-135) U/L CK-MB (Mass) (0.0-3.38) ng/mL Troponin I, Quant (0.00-0.120) ng/mL Total Protein (6.3-8.3) g/dL Albumin (3.5-5.0) g/dL Globulin (2.2-3.9) gm/dL Albumin/Globulin Ratio (1.0-2.1) 09/27/16 09/27/16 09/27/16 Range/Units 07:32 06:23 06:21 WBC 10.3 (4.8-10.8) K/uL RBC 4.12 (3.80-5.20) Mil/uL Hgb 12.1 (11.0-16.0) g/dL Hct 36.8 (34.0-47.0) % MCV 89.3 (81.0-99.0) fL MCH 29.4 (27.0-31.0) pg MCHC 32.9 L (33.0-37.0) g/dL RDW 15.2 H (11.5-14.5) % Plt Count 278 (130-400) K/uL MPV 9.6 (7.2-11.7) fL Neut % (Auto) 80.3 H (50.0-75.0) % Lymph % (Auto) 5.1 L (20.0-40.0) % [place] % (Auto) 11.7 H (0.0-10.0) % Eos % (Auto) 1.8 (0.0-4.0) % Baso % (Auto) 1.1 (0.0-2.0) % Neut # 8.3 H (1.8-7.0) K/uL Lymph # 0.5 L (1.0-4.3) K/uL [place] # 1.2 H (0.0-0.8) K/uL Eos # 0.2 (0.0-0.7) K/uL Baso # 0.1 (0.0-0.2) K/uL Neutrophils % (Manual) 89 H (50-75) % Lymphocytes % (Manual) 2 L (20-40) % Monocytes % (Manual) 6 (0-10) % Eosinophils % (Manual) 3 (0-4) % Platelet Estimate Normal (NORMAL) Polychromasia Slight Hypochromasia (manual) Slight Anisocytosis (manual) Slight Target Cells Slight Ovalocytes Slight [place] Cells Slight Puncture Site pCO2 (35-45) mm/Hg pO2 (80-100) mm/Hg HCO3 (21-28) mmol/L ABG pH (7.35-7.45) ABG Total CO2 (22-28) mmol/L ABG O2 Saturation (95-98) % ABG Base Excess (-2.0-3.0) mmol/L ABG Hemoglobin (11.7-17.4) g/dL ABG Carboxyhemoglobin (0.5-1.5) % POC ABG HHb (Measured) (0.0-5.0) % ABG Methemoglobin (0.0-3.0) % Andrei Test Hgb O2 Saturation (95.0-98.0) % Liter Flow Blood Gas Comments Crit Value Called To Crit Value Called By Crit Value Read Back Blood Gas Notified Time Sodium 136 (132-148) mmol/L Potassium 4.2 (3.6-5.2) mmol/L Chloride 96 L (98-107) mmol/L Carbon Dioxide 25 (22-30) mmol/L Anion Gap 19 (10-20) BUN 22 H (7-17) mg/dL Creatinine 4.9 H (0.7-1.2) MG/DL Est GFR ( Amer) 10 Est GFR (Non-Af Amer) 9 POC Glucose (mg/dL) 165 H (65-110) mg/dL Random Glucose 181 H (65-105) mg/dL Calcium 7.2 L (8.6-10.4) mg/dl Phosphorus 5.7 H (2.5-4.5) mg/dL Magnesium 1.7 (1.6-2.3) mg/dL Total Bilirubin 0.6 (0.2-1.3) mg/dL AST 17 (14-36) U/L ALT 18 (9-52) U/L Alkaline Phosphatase 137 H (38-126) U/L Total Creatine Kinase 79 (30-135) U/L CK-MB (Mass) 1.58 (0.0-3.38) ng/mL Troponin I, Quant 0.0540 (0.00-0.120) ng/mL Total Protein 6.2 L (6.3-8.3) g/dL Albumin 2.9 L (3.5-5.0) g/dL Globulin 3.3 (2.2-3.9) gm/dL Albumin/Globulin Ratio 0.9 L (1.0-2.1) 09/26/16 09/26/16 Range/Units 21:25 20:53 WBC (4.8-10.8) K/uL RBC (3.80-5.20) Mil/uL Hgb (11.0-16.0) g/dL Hct (34.0-47.0) % MCV (81.0-99.0) fL MCH (27.0-31.0) pg MCHC (33.0-37.0) g/dL RDW (11.5-14.5) % Plt Count (130-400) K/uL MPV (7.2-11.7) fL Neut % (Auto) (50.0-75.0) % Lymph % (Auto) (20.0-40.0) % [place] % (Auto) (0.0-10.0) % Eos % (Auto) (0.0-4.0) % Baso % (Auto) (0.0-2.0) % Neut # (1.8-7.0) K/uL Lymph # (1.0-4.3) K/uL [place] # (0.0-0.8) K/uL Eos # (0.0-0.7) K/uL Baso # (0.0-0.2) K/uL Neutrophils % (Manual) (50-75) % Lymphocytes % (Manual) (20-40) % Monocytes % (Manual) (0-10) % Eosinophils % (Manual) (0-4) % Platelet Estimate (NORMAL) Polychromasia Hypochromasia (manual) Anisocytosis (manual) Target Cells Ovalocytes [place] Cells Puncture Site pCO2 (35-45) mm/Hg pO2 (80-100) mm/Hg HCO3 (21-28) mmol/L ABG pH (7.35-7.45) ABG Total CO2 (22-28) mmol/L ABG O2 Saturation (95-98) % ABG Base Excess (-2.0-3.0) mmol/L ABG Hemoglobin (11.7-17.4) g/dL ABG Carboxyhemoglobin (0.5-1.5) % POC ABG HHb (Measured) (0.0-5.0) % ABG Methemoglobin (0.0-3.0) % Andrei Test Hgb O2 Saturation (95.0-98.0) % Liter Flow Blood Gas Comments Crit Value Called To Crit Value Called By Crit Value Read Back Blood Gas Notified Time Sodium (132-148) mmol/L Potassium (3.6-5.2) mmol/L Chloride (98-107) mmol/L Carbon Dioxide (22-30) mmol/L Anion Gap (10-20) BUN (7-17) mg/dL Creatinine (0.7-1.2) MG/DL Est GFR ( Amer) Est GFR (Non-Af Amer) POC Glucose (mg/dL) 139 H (65-110) mg/dL Random Glucose (65-105) mg/dL Calcium (8.6-10.4) mg/dl Phosphorus (2.5-4.5) mg/dL Magnesium (1.6-2.3) mg/dL Total Bilirubin (0.2-1.3) mg/dL AST (14-36) U/L ALT (9-52) U/L Alkaline Phosphatase (38-126) U/L Total Creatine Kinase 87 (30-135) U/L CK-MB (Mass) 1.99 (0.0-3.38) ng/mL Troponin I, Quant 0.0320 (0.00-0.120) ng/mL Total Protein (6.3-8.3) g/dL Albumin (3.5-5.0) g/dL Globulin (2.2-3.9) gm/dL Albumin/Globulin Ratio (1.0-2.1) Laboratory Results - last 24 hr 09/26/16 09/26/16 09/27/16 20:53 21:25 06:21 WBC RBC Hgb Hct MCV MCH MCHC RDW Plt Count MPV Neut % (Auto) Lymph % (Auto) [place] % (Auto) Eos % (Auto) Baso % (Auto) Neut # Lymph # [place] # Eos # Baso # Neutrophils % (Manual) Lymphocytes % (Manual) Monocytes % (Manual) Eosinophils % (Manual) Platelet Estimate Polychromasia Hypochromasia (manual) Anisocytosis (manual) Target Cells Ovalocytes [place] Cells Puncture Site pCO2 pO2 HCO3 ABG pH ABG Total CO2 ABG O2 Saturation ABG Base Excess ABG Hemoglobin ABG Carboxyhemoglobin POC ABG HHb (Measured) ABG Methemoglobin Andrei Test Hgb O2 Saturation Liter Flow Blood Gas Comments Crit Value Called To Crit Value Called By Crit Value Read Back Blood Gas Notified Time Sodium 136 Potassium 4.2 Chloride 96 L Carbon Dioxide 25 Anion Gap 19 BUN 22 H Creatinine 4.9 H Est GFR ( Amer) 10 Est GFR (Non-Af Amer) 9 POC Glucose (mg/dL) 139 H Random Glucose 181 H Calcium 7.2 L Phosphorus 5.7 H Magnesium 1.7 Total Bilirubin 0.6 AST 17 ALT 18 Alkaline Phosphatase 137 H Total Creatine Kinase 87 79 CK-MB (Mass) 1.99 1.58 Troponin I, Quant 0.0320 0.0540 Total Protein 6.2 L Albumin 2.9 L Globulin 3.3 Albumin/Globulin Ratio 0.9 L 09/27/16 09/27/16 09/27/16 06:23 07:32 10:51 WBC 10.3 RBC 4.12 Hgb 12.1 Hct 36.8 MCV 89.3 MCH 29.4 MCHC 32.9 L RDW 15.2 H Plt Count 278 MPV 9.6 Neut % (Auto) 80.3 H Lymph % (Auto) 5.1 L [place] % (Auto) 11.7 H Eos % (Auto) 1.8 Baso % (Auto) 1.1 Neut # 8.3 H Lymph # 0.5 L [place] # 1.2 H Eos # 0.2 Baso # 0.1 Neutrophils % (Manual) 89 H Lymphocytes % (Manual) 2 L Monocytes % (Manual) 6 Eosinophils % (Manual) 3 Platelet Estimate Normal Polychromasia Slight Hypochromasia (manual) Slight Anisocytosis (manual) Slight Target Cells Slight Ovalocytes Slight [place] Cells Slight Puncture Site Line pCO2 52 H pO2 30 L* HCO3 24.6 ABG pH 7.33 L ABG Total CO2 29.0 H ABG O2 Saturation 62.5 L ABG Base Excess 0.7 ABG Hemoglobin 12.0 ABG Carboxyhemoglobin 1.3 POC ABG HHb (Measured) 36.6 H ABG Methemoglobin 1.1 Andrei Test Na Hgb O2 Saturation 61.0 L Liter Flow 3.0 Blood Gas Comments Tlc placement Crit Value Called To Dr espinoza Crit Value Called By Jyoti beckett carton stamper Crit Value Read Back Y Blood Gas Notified Time 1056 Sodium Potassium Chloride Carbon Dioxide Anion Gap BUN Creatinine Est GFR ( Amer) Est GFR (Non-Af Amer) POC Glucose (mg/dL) 165 H Random Glucose Calcium Phosphorus Magnesium Total Bilirubin AST ALT Alkaline Phosphatase Total Creatine Kinase CK-MB (Mass) Troponin I, Quant Total Protein Albumin Globulin Albumin/Globulin Ratio 09/27/16 09/27/16 11:10 16:20 WBC RBC Hgb Hct MCV MCH MCHC RDW Plt Count MPV Neut % (Auto) Lymph % (Auto) [place] % (Auto) Eos % (Auto) Baso % (Auto) Neut # Lymph # [place] # Eos # Baso # Neutrophils % (Manual) Lymphocytes % (Manual) Monocytes % (Manual) Eosinophils % (Manual) Platelet Estimate Polychromasia Hypochromasia (manual) Anisocytosis (manual) Target Cells Ovalocytes [place] Cells Puncture Site pCO2 pO2 HCO3 ABG pH ABG Total CO2 ABG O2 Saturation ABG Base Excess ABG Hemoglobin ABG Carboxyhemoglobin POC ABG HHb (Measured) ABG Methemoglobin Andrei Test Hgb O2 Saturation Liter Flow Blood Gas Comments Crit Value Called To Crit Value Called By Crit Value Read Back Blood Gas Notified Time Sodium Potassium Chloride Carbon Dioxide Anion Gap BUN Creatinine Est GFR ( Amer) Est GFR (Non-Af Amer) POC Glucose (mg/dL) 200 H 268 H Random Glucose Calcium Phosphorus Magnesium Total Bilirubin AST ALT Alkaline Phosphatase Total Creatine Kinase CK-MB (Mass) Troponin I, Quant Total Protein Albumin Globulin Albumin/Globulin Ratio Attending/Attestation - Attestation I have personally seen and examined this patient.: Yes I have fully participated in the care of the patient.: Yes I have reviewed all pertinent clinical information: Yes Notes (Text): 09/27/16 17:36 Patient seen and examined in the intensive care unit. Case discussed with house staff in the morning rounds. Remains hypotensive on high-dose Levophed Patient is awake and responsive in no respiratory distress Echocardiogram consistent with severe aortic stenosis and systolic dysfunction with ejection fraction of 20% Cardiology evaluation for transfer to another facility for possible TAVR Unlikely sepsis with normal lactate level and no possible source of infection
--- NOTE | 2016-09-27 13:27 | CARD ---
APPROVED REPORT EXAM: Two-dimensional and M-mode echocardiogram with Doppler and color Doppler. Other Information Quality : GoodRhythm : NSR INDICATION Dyspnea Chest Pain esrd M-Mode DIMENSIONS RVDd2.92 (2.1-3.2cm)Left Atrium (MM)4.96 (2.5-4.0cm) IVSd1.04 (0.7-1.1cm)Aortic Root2.74 (2.2-3.7cm) LVDd6.21 (4.0-5.6cm)Aortic Cusp Exc.0.87 (1.5-2.0cm) PWd1.18 (0.7-1.1cm) Aortic Valve AoV Peak Ebrqcxgo664.5cm/sAoV VTI95.0cmAO Peak GR.63mmHg AO Mean GR.49mmHgAI P 1/2 [id number] Mitral Valve MV E Biviqmie182.1cm/sMV A Kamtfxsu51.5cm/sE/A ratio1.7 MVA (Planimetry)1.45cm2 TDI E/Lateral E'0.0E/Medial E'0.0 Pulmonary Valve PV Peak Hknximfl86.7cm/sPV Peak Grad.3mmHg Tricuspid Valve TR Peak Pdgwdkmx585lx/sTR Peak Gr.18dwCbEDRU73ruDv LEFT VENTRICLE The Left Ventricle is moderately dilated. There is normal left ventricular wall thickness. Left ventricle systolic function is severely impaired. The Ejection Fraction is <20%. There is global hypokinesis of the left ventricle. Transmitral Doppler flow pattern is Grade II-pseudonormal filling dynamics. There is no ventricular septal defect visualized. RIGHT VENTRICLE The right ventricle is mildly dilated. Systolic function is moderately reduced. There is a pacemaker lead in the right ventricle. ATRIA The left atrium is moderately dilated. The right atrium is moderately dilated. AORTIC VALVE Aortic valve was severely sclerotic with decreased cusp separation, cusps were not visualized individually. There is mild aortic regurgitation. Severe aortic stenosis with a maximum gradient of about 120, however due to poor quality aortic valve area could not be evaluated. MITRAL VALVE Aortic leaflets and subvalvular apparatus are sclerotic and thickened, further transesophageal echo as needed for further evaluation. There is no evidence of mitral valve prolapse. Mitral regurgitation is moderate. TRICUSPID VALVE The tricuspid valve is normal in structure. There is severe tricuspid regurgitation. Right ventricular systolic pressure is estimated at 57 mmHg. There is severe pulmonary hypertension. PULMONIC VALVE The pulmonic valve is not well visualized. There is trace pulmonic valvular regurgitation. GREAT VESSELS Dilated vena cava PERICARDIAL EFFUSION There is no pericardial effusion. <Conclusion> Left ventricle systolic function is severely impaired. The Ejection Fraction is <20%. There is global hypokinesis of the left ventricle. Transmitral Doppler flow pattern is Grade II-pseudonormal filling dynamics. There is mild aortic regurgitation. Severe aortic stenosis with a maximum gradient of about 120, however due to poor quality aortic valve area could not be evaluated. Mitral regurgitation is moderate. There is severe pulmonary hypertension.
[2016-09-27 16:34] VITALS: TEMP 99.9
--- NOTE | 2016-09-27 17:03 | CP.PCM.CON ---
History of Present Illness - History of Present Illness History of Present Illness: 76 year old female presented to the ED with complaints of malaise, weak, SOB, and chest pain. While in the hospital, the patient became hypotensive and ITINERANT TEACHER ASSISTANT was called. The patient's BP was 55/37 at the time of the event, and was given fluids, D5, and dopamine. Patient's potassium was 6.3 and EKG showed prolonged QT interval. BP increased to 84/46 and patient was transferred to ICU. the patient reports feeling short of breath, "like she is choking/drowning", weak, burning in her chest, and chills. She also reports a productive cough with white phlegm and diarrhea. Patient denies fevers, abdominal pain, nausea, vomiting, headache, leg pain, ID consulted for possible pneumonia FamHx: Brothers- [place], Stroke, Stomach Cancer, and DM; Sister- Stomach cancer SocHx: denies tobaco, etoh, and illicit drug use. Allergies: oxycodone, ferumoxides, iron, ferrlecit (sodium ferric gluconate, sucrose) - Medical History PMH: Anemia, Asthma, CAD, Cardia Arrhythmia, CHF, COPD, Diabetes, Diverticulitis , Fractures, Hiatal Hernia, HTN, Hypercholesterolemia, Kidney Stones, End Stage Renal Disease, Chronic Kidney Disease Surgical History: Pacemaker (LEFT CHEST WALL) - [facility] Procedures BYPASS LEFT BRACHIAL ARTERY TO UPPER ARM VEIN, OPEN APPROACH (12/14/14) C.A.T. SCAN OF THORAX (08/16/13) DIALYSIS ARTERIOVENOSTOM (09/14/14) DRAINAGE OF PERITONEAL CAVITY WITH DRAIN DEV, PERC APPROACH (02/24/16) DRAINAGE OF PERITONEAL CAVITY, PERCUTANEOUS APPROACH (09/21/16) DX ULTRASOUND-ABDOMEN (10/25/14) HEMODIALYSIS (11/16/14) MEASUREMENT OF CARDIAC DEFIBRILLATOR, EXTERNAL APPROACH (12/14/14) PACKED CELL TRANSFUSION (08/16/13) PERCUTANEOUS ABDOMINAL DRAINAGE (11/16/14) PERFORMANCE OF URINARY FILTRATION, MULTIPLE (09/02/16) PERFORMANCE OF URINARY FILTRATION, SINGLE (06/29/16) REPOSITION LEFT BASILIC VEIN, OPEN APPROACH (05/30/15) SUPPLEMENT ABDOMINAL WALL WITH SYNTH SUB, OPEN APPROACH (03/17/15) THORACENTESIS (08/16/13) ULTRASONOGRAPHY OF ABDOMEN (07/08/17) VENOUS CATHETERIZATION FOR RENAL DIALYSIS (03/01/14) Review of Systems - Constitutional Constitutional: As Per HPI, Anorexia, Chills, Weight Loss, Weakness - EENT Eyes: absent: As Per HPI, Blind Spots, Blurred Vision, Change in Vision, Decreased Night Vision, Diplopia, Discharge, Dry Eye, Exophthalmos, Floaters, Irritation, Itchy Eyes, Loss of Peripheral Vision, Pain, Photophobia, Requires Corrective Lenses, Sees Flashes, Spots in Vision, Tunnel Vision, Other Visual Disturbances, Loss of Vision, Other Ears: absent: As Per HPI, Decreased Hearing, Ear Discharge, Ear Pain, Tinnitus, Abnormal Hearing, Disequilibrium, Dizziness, Other Nose/Mouth/Throat: absent: As Per HPI, Epistaxis, Nasal Congestion, Nasal Discharge, Nasal Obstruction, Nasal Trauma, Nose Pain, Post Nasal Drip, Sinus Pain, Sinus Pressure, Bleeding Gums, Change in Voice, Dental Pain, Dry Mouth, Dysphagia, Halitosis, Hoarsness, Lip Swelling, Mouth Lesions, Mouth Pain, Odynophagia, Sore Throat, Throat Swelling, Tongue Swelling, Facial Pain, Neck Pain, Neck Mass, Other - Breasts Breasts: absent: As Per HPI, Change in Shape, Mass, Pain, Nipple Discharge, Nipple Inversion, Skin Changes, Swelling, Other - Cardiovascular Cardiovascular: As Per HPI - Respiratory Respiratory: As Per HPI, Cough, Dyspnea. absent: Hemoptysis - Gastrointestinal Gastrointestinal: As Per HPI - Genitourinary Genitourinary: absent: As Per HPI, Change in Urinary Stream, Difficulty Urinating, Dysuria, Flank Pain, Hematuria, Pyuria, Nocturia, Urinary Incontinence, Urinary Frequency, Urinary Hesitance, Urinary Urgency, Voiding Freq/Small Amts, Freq UTI, Hx Renal/Bladder Calculi, Hx /Renal Surgery, Bladder Distension, Other - Reproductive: Female Reproductive:Female: absent: As Per HPI, Amenorrhea, Amenorrhea/ Control, Currently Menstual, Cycle <21 Days, Cycle >35 Days, Cycle Variable, Menses 1-7 Days, Menses >/= 8 Days, Menses Variable, Cycle > 4 Weeks Between, No Menses for 6 Months, Heavy Menses, Light Menses, Normal Menses, Spotting Between Cycles , S/P Hysterectomy, Menopausal, Post Menopausal, Premenarche, Abnormal Vaginal Bleeding, Dysmenorrhea, Dyspareunia, Genital Lesions, Genital Pruritis, Pelvic Pain, Prolapse Symptoms, Sexual Dysfunction, Vaginal Discharge, Vaginal Dryness , Vaginal Odor, Vaginal Pruritis, Other - Menstruation Menstruation: absent: As Per HPI, Amenorrhea, Amenorrhea/ Control, Currently Menstual, Cycle <21 Days, Cycle >35 Days, Cycle Variable, Menses 1-7 Days, Menses >/= 8 Days, Menses Variable, Cycle > 4 Weeks Between, No Menses for 6 Months, Heavy Menses, Light Menses, Normal Menses, Spotting Between Cycles , S/P Hysterectomy, Menopausal, Post Menopausal, Premenarche, Abnormal Vaginal Bleeding, Dysmenorrhea, Other - Musculoskeletal Musculoskeletal: absent: As Per HPI, Abnormal Gait, Arthralgias, Atrophy, Back Pain, Deformity, Joint Swelling, Limited Range of Motion, Loss of Height, Muscle Cramps, Muscle Weakness, Myalgias, Neck Pain, Numbness, Radiating Pain into Limb, Stiffness, Tingling, Other - Integumentary Integumentary: absent: As Per HPI, Acne, Alopecia, Bleeding Lesions, Change in Hair, Change in Nails, Change in Pigmentation, Changing Lesions, Dry Skin, Erythema, Furuncle, Hirsutism, Lesions, New Lesions, Non-Healing Lesions, Photosensitivity, Pruritus, Rash, Skin Pain, Skin Ulcer, Sores, Striae, Swelling , Unusual Bruising, Wounds, Jaundice, Other - Neurological Neurological: absent: As Per HPI, Abnormal Gait, Abnormal Hearing, Abnormal Movements, Abnormal Speech, Behavioral Changes, Burning Sensations, Confusion, Convulsions, Disequilibrium, Dizziness, Numbness, Focal Weakness, Frequent Falls , Headaches, Lack of Coordination, Loss of Vision, Memory Loss, Paresthesias, Radicular Pain, Restless Legs, Sensory Deficit, Syncope, Tingling, Tremor, Vertigo, Weakness, Other Visual Disturbances, Other - Psychiatric Psychiatric: absent: As Per HPI, Abnormal Sleep Pattern, Anhedonia, Anxiety, Auditory Hallucinations, Behavioral Changes, Change in Appetite, Change in Libido, Confusion, Depression, Difficulty Concentrating, Hallucinations, Homicidal Ideation, Hopelessness, Irritability, Memory Loss, Mood Swings, Panic Attacks, Paranoia, Suicidal Ideation, Visual Hallucinations, Tactile Hallucinations, Other - Endocrine Endocrine: absent: As Per HPI, Change in Body Appearance, Change in Libido, Cold Intolorance, Deepening of Voice, Excessive Sweating, Fatigue, Flushing, Heat Intolorance, Increase in Ring/Shoe/Hat Size, Palpitations, Polydipsia, Polyphagia, Polyuria, Other - Hematologic/Lymphatic Hematologic: absent: As Per HPI, Easy Bleeding, Easy Bruising, Lymphadenopathy, Other Past Patient History - Infectious Disease Hx of Infectious Diseases: None - Past Medical History & Family History Past Medical History?: Yes - Past Social History Smoking Status: Never Smoked - CARDIAC Hx Cardia Arrhythmia: Yes Hx Congestive Heart Failure: Yes Hx Hypercholesterolemia: Yes Hx Hypertension: Yes Hx Pacemaker: Yes (LEFT CHEST WALL) - PULMONARY Hx Asthma: Yes Hx Chronic Obstructive Pulmonary Disease (COPD): Yes - NEUROLOGICAL Hx Neurological Disorder: No - HEENT Hx HEENT Problems: Yes (SEE COMMENT) - RENAL Hx Chronic Kidney Disease: Yes Hx Kidney Stones: Yes - ENDOCRINE/METABOLIC Hx Endocrine Disorders: Yes Hx Diabetes Mellitus Type 2: Yes - HEMATOLOGICAL/ONCOLOGICAL Hx Anemia: Yes - INTEGUMENTARY Hx Dermatological Problems: No Other/Comment: Hx: herpes zoster - MUSCULOSKELETAL/RHEUMATOLOGICAL Hx Fractures: Yes - GASTROINTESTINAL Hx Diverticulitis: Yes - GENITOURINARY/GYNECOLOGICAL Hx Genitourinary Disorders: No - PSYCHIATRIC Hx Substance Use: No - SURGICAL HISTORY Hx Surgeries: Yes (SEE COMMENT) Hx Arteriovenous Shunt: Yes (LEFT ARM AV SHUNT) Other/Comment: pacemaker 2013, no additional information given by family and patient - ANESTHESIA Hx Anesthesia: Yes Hx Anesthesia Reactions: No (Denies) Hx Malignant Hyperthermia: No Meds Allergies/Adverse Reactions: Allergies Allergy/AdvReac Type Severity Reaction Status Date / Time oxycodone AdvReac Severe CONFUSION Verified 09/26/16 04:50 ferumoxides AdvReac REDNESS Verified 09/26/16 04:50 iron AdvReac REDNESS Verified 09/26/16 04:50 sodium ferric gluconate AdvReac REDNESS Verified 09/26/16 04:50 complex [From Ferrlecit] sucrose [From Ferrlecit] AdvReac REDNESS Verified 09/26/16 04:50 - Medications Medications: Current Medications Albuterol/Ipratropium (Duoneb 3 Mg/0.5 Mg (3 Ml) Ud) 3 ml INH RQ6 CARITO Last Admin: 09/27/16 13:53 Dose: 3 ml Diphenhydramine HCl (Benadryl) 25 mg PO TID PRN PRN Reason: Itching / Pruritus Enoxaparin Sodium (Lovenox) 30 mg SC DAILY [facility] Last Admin: 09/27/16 09:37 Dose: 30 mg Glipizide (Glucotrol) 2.5 mg PO BID [facility] Last Admin: 09/27/16 09:37 Dose: 2.5 mg Hydrocortisone (Cortizone 1% Cream) 0 gm TOP BID [facility] Last Admin: 09/27/16 09:47 Dose: 1 appl Dopamine HCl/Dextrose (Dopamine 400mg/250ml D5w) 400 mg in 250 mls @ 9.781 mls/ hr IV .Q24H PRN; Protocol; 5 MCG/KG/MIN PRN Reason: TITRATE PER MD ORDER Last Titration: 09/26/16 23:00 Dose: 0 mcg/kg/min, 0 mls/hr Norepinephrine Bitartrate 8 mg (/ Sodium Chloride) 258 mls @ 7.74 mls/hr IV .Q24H PRN; Protocol; 4 MCG/MIN PRN Reason: TITRATE PER MD ORDER Last Admin: 09/27/16 16:56 Dose: 15 mcg/min, 29.02 mls/hr Insulin Aspart (Novolog) 0 unit SC ACHS [facility] PRN Reason: Protocol Last Admin: 09/27/16 16:45 Dose: 3 unit Loperamide HCl (Imodium) 2 mg PO TID PRN PRN Reason: Diarrhea Last Admin: 09/26/16 12:08 Dose: 2 mg Pantoprazole Sodium (Protonix Ec Tab) 40 mg PO DAILY [facility] Last Admin: 09/27/16 09:35 Dose: 40 mg Rosuvastatin Calcium (Crestor) 5 mg PO HS [facility] Last Admin: 09/26/16 21:41 Dose: 5 mg Sevelamer Carbonate (Renvela) 1,600 mg PO BID [facility] Last Admin: 09/27/16 09:36 Dose: 1,600 mg Physical Exam - Constitutional Appears: Non-toxic, In Acute Distress, Confused, Cachectic, Chronically Ill - Head Exam Head Exam: NORMAL INSPECTION, NORMOCEPHALIC - Eye Exam Eye Exam: PERRL. absent: Scleral icterus - ENT Exam ENT Exam: Mucous Membranes Dry, Normal External Ear Exam, Normal Oropharynx - Neck Exam Neck exam: Negative for: Lymphadenopathy, Thyromegaly - Respiratory Exam Respiratory Exam: Decreased Breath Sounds, Rhonchi - Cardiovascular Exam Cardiovascular Exam: Tachycardia, Irregular Rhythm, +S1, +S2 - GI/Abdominal Exam GI & Abdominal Exam: Diminished Bowel Sounds, Distended, Guarding, Soft. absent : Rigid, Tenderness - Rectal Exam Rectal Exam: Deferred - Exam Exam: NORMAL INSPECTION - Extremities Exam Extremities exam: Positive for: pedal pulses present. Negative for: calf tenderness, pedal edema, tenderness - Back Exam Back exam: absent: CVA tenderness (L), CVA tenderness (R) - Neurological Exam Neurological exam: Alert, CN II-XII Intact, Oriented x3, Reflexes Normal - Psychiatric Exam Psychiatric exam: Depressed - Skin Skin Exam: Intact Results - Vital Signs Recent Vital Signs: Last Vital Signs Temp 99.9 F H 09/27/16 16:00 Pulse 111 H 09/27/16 16:56 Resp 22 09/27/16 16:56 BP 90/50 L 09/27/16 16:56 Pulse Ox 95 09/27/16 16:56 - Labs Result Diagrams: 09/27/16 06:23 09/27/16 06:21 Labs: Laboratory Results - last 24 hr 09/26/16 09/26/16 09/27/16 20:53 21:25 06:21 WBC RBC Hgb Hct MCV MCH MCHC RDW Plt Count MPV Neut % (Auto) Lymph % (Auto) [place] % (Auto) Eos % (Auto) Baso % (Auto) Neut # Lymph # Price # Eos # Baso # Neutrophils % (Manual) Lymphocytes % (Manual) Monocytes % (Manual) Eosinophils % (Manual) Platelet Estimate Polychromasia Hypochromasia (manual) Anisocytosis (manual) Target Cells Ovalocytes [place] Cells Puncture Site pCO2 pO2 HCO3 ABG pH ABG Total CO2 ABG O2 Saturation ABG Base Excess ABG Hemoglobin ABG Carboxyhemoglobin POC ABG HHb (Measured) ABG Methemoglobin Andrei Test Hgb O2 Saturation Liter Flow Blood Gas Comments Crit Value Called To Crit Value Called By Crit Value Read Back Blood Gas Notified Time Sodium 136 Potassium 4.2 Chloride 96 L Carbon Dioxide 25 Anion Gap 19 BUN 22 H Creatinine 4.9 H Est GFR ( Amer) 10 Est GFR (Non-Af Amer) 9 POC Glucose (mg/dL) 139 H Random Glucose 181 H Calcium 7.2 L Phosphorus 5.7 H Magnesium 1.7 Total Bilirubin 0.6 AST 17 ALT 18 Alkaline Phosphatase 137 H Total Creatine Kinase 87 79 CK-MB (Mass) 1.99 1.58 Troponin I, Quant 0.0320 0.0540 Total Protein 6.2 L Albumin 2.9 L Globulin 3.3 Albumin/Globulin Ratio 0.9 L 09/27/16 09/27/16 09/27/16 06:23 07:32 10:51 WBC 10.3 RBC 4.12 Hgb 12.1 Hct 36.8 MCV 89.3 MCH 29.4 MCHC 32.9 L RDW 15.2 H Plt Count 278 MPV 9.6 Neut % (Auto) 80.3 H Lymph % (Auto) 5.1 L Price % (Auto) 11.7 H Eos % (Auto) 1.8 Baso % (Auto) 1.1 Neut # 8.3 H Lymph # 0.5 L Price # 1.2 H Eos # 0.2 Baso # 0.1 Neutrophils % (Manual) 89 H Lymphocytes % (Manual) 2 L Monocytes % (Manual) 6 Eosinophils % (Manual) 3 Platelet Estimate Normal Polychromasia Slight Hypochromasia (manual) Slight Anisocytosis (manual) Slight Target Cells Slight Ovalocytes Slight [place]aus[place] Cells Slight Puncture Site Line pCO2 52 H pO2 30 L* HCO3 24.6 ABG pH 7.33 L ABG Total CO2 29.0 H ABG O2 Saturation 62.5 L ABG Base Excess 0.7 ABG Hemoglobin 12.0 ABG Carboxyhemoglobin 1.3 POC ABG HHb (Measured) 36.6 H ABG Methemoglobin 1.1 Andrei Test Na Hgb O2 Saturation 61.0 L Liter Flow 3.0 Blood Gas Comments Tlc placement Crit Value Called To Dr espinoza Crit Value Called By Jyoti beckett service worker helper Crit Value Read Back Y Blood Gas Notified Time 1056 Sodium Potassium Chloride Carbon Dioxide Anion Gap BUN Creatinine Est GFR ( Amer) Est GFR (Non-Af Amer) POC Glucose (mg/dL) 165 H Random Glucose Calcium Phosphorus Magnesium Total Bilirubin AST ALT Alkaline Phosphatase Total Creatine Kinase CK-MB (Mass) Troponin I, Quant Total Protein Albumin Globulin Albumin/Globulin Ratio 09/27/16 09/27/16 11:10 16:20 WBC RBC Hgb Hct MCV MCH MCHC RDW Plt Count MPV Neut % (Auto) Lymph % (Auto) Price % (Auto) Eos % (Auto) Baso % (Auto) Neut # Lymph # Price # Eos # Baso # Neutrophils % (Manual) Lymphocytes % (Manual) Monocytes % (Manual) Eosinophils % (Manual) Platelet Estimate Polychromasia Hypochromasia (manual) Anisocytosis (manual) Target Cells Ovalocytes Kaushik Cells Puncture Site pCO2 pO2 HCO3 ABG pH ABG Total CO2 ABG O2 Saturation ABG Base Excess ABG Hemoglobin ABG Carboxyhemoglobin POC ABG HHb (Measured) ABG Methemoglobin Andrei Test Hgb O2 Saturation Liter Flow Blood Gas Comments Crit Value Called To Crit Value Called By Crit Value Read Back Blood Gas Notified Time Sodium Potassium Chloride Carbon Dioxide Anion Gap BUN Creatinine Est GFR ( Amer) Est GFR (Non-Af Amer) POC Glucose (mg/dL) 200 H 268 H Random Glucose Calcium Phosphorus Magnesium Total Bilirubin AST ALT Alkaline Phosphatase Total Creatine Kinase CK-MB (Mass) Troponin I, Quant Total Protein Albumin Globulin Albumin/Globulin Ratio Assessment & Plan (1) Chest pain Status: Acute (2) ESRD (end stage renal disease) on dialysis Status: Chronic (3) Acute on chronic systolic congestive heart failure Status: Acute Priority: Medium (4) Ascites Status: Acute Priority: Medium (5) CAD (coronary artery disease) Status: Acute (6) COPD (chronic obstructive pulmonary disease) Status: Acute (7) Cirrhosis Status: Acute (8) Dialysis patient Status: Acute (9) HLD (hyperlipidemia) Status: Acute (10) Pulmonary HTN Status: Acute (11) Renal insufficiency Status: Acute (12) Liver failure Status: Chronic Priority: Medium (13) Pacemaker Status: Chronic (14) Type II diabetes mellitus Status: Chronic Priority: Medium - Assessment and Plan (Free Text) Assessment: chronic cough multiorgan system failure r/o infection viral ? bacterial? add avelox stat dose Vanco given cultures pending
[2016-09-27] MEDS ORDERED: Moxifloxacin IV 400mg/250ml NS 400 MG/250 ML BAG IVPB SCH (17:15)
[2016-09-27 19:31] VITALS: BP 87/46; PULSE 107; RESP 14; O2SAT 100
--- NOTE | 2016-09-29 19:15 | CARD ---
APPROVED REPORT EKG Measurement Heart [id number] PA [id number] <Conclusion> Normal sinus rhythm Nonspecific ST and T wave abnormality Prolonged QT Abnormal ECG
== END 2016-09-27 22:45 | disposition short-term general hospital (02) | DRG 291 ==
LOC: C.ER 04:29 → C.9E 06:06 → C.6T 06:33 → OBSVTOIN 15:30 → C.9I 15:51 → INTOOBSV 09-27 06:47 → OBSVTOIN 09-27 06:47
PROVIDERS: ADMIT Internal Medicine Nephrology; ATTEND Internal Medicine Nephrology
PROC: 3E033XZ Introduction of Vasopressor into Peripheral Vein, Percutaneous Approach (ICD-10-PCS; principal; 2016-09-26)
DX: I13.2 Hypertensive heart and chronic kidney disease with heart failure and with stage 5 chronic kidney disease, or end stage renal disease (principal); N18.6 End stage renal disease; R57.9 Shock, unspecified; K76.7 Hepatorenal syndrome; R18.0 Malignant ascites; J44.0 Chronic obstructive pulmonary disease with (acute) lower respiratory infection; B02.9 Zoster without complications; K72.90 Hepatic failure, unspecified without coma; I50.23 Acute on chronic systolic (congestive) heart failure; I82.409 Acute embolism and thrombosis of unspecified deep veins of unspecified lower extremity; I27.2 Other secondary pulmonary hypertension; I42.8 Other cardiomyopathies; E11.22 Type 2 diabetes mellitus with diabetic chronic kidney disease; D64.9 Anemia, unspecified; Z99.2 Dependence on renal dialysis; Z91.15 Patient's noncompliance with renal dialysis; Z79.4 Long term (current) use of insulin; E78.00 Pure hypercholesterolemia, unspecified; J45.909 Unspecified asthma, uncomplicated; Z95.0 Presence of cardiac pacemaker; I45.81 Long QT syndrome; I35.0 Nonrheumatic aortic (valve) stenosis; K74.60 Unspecified cirrhosis of liver; I25.10 Atherosclerotic heart disease of native coronary artery without angina pectoris; E78.5 Hyperlipidemia, unspecified; J20.9 Acute bronchitis, unspecified; S90.32XA Contusion of left foot, initial encounter; X58.XXXA Exposure to other specified factors, initial encounter; E87.5 Hyperkalemia; E11.65 Type 2 diabetes mellitus with hyperglycemia